=== PATIENT | male | born 1975 | race Caucasian/White ===

== ENCOUNTER 2022-02-28 19:50 | Observation (INO) ==
[2022-02-28 20:36] LABS: Basophils # (auto) 0.03 K/uL (0-0.2); Basophils % (auto) 0.5 %; Eosinophils # (auto) 0.02 K/uL (0-0.5); Eosinophils % (auto) 0.3 %; Hematocrit (blood only) 39.7 % (42-52); Lymphocytes # (auto) 0.71 K/uL (1.2-3.4); Lymphocytes % (auto) 11.6 %; Mean Corpuscular Hgb Conc 35.3 g/dL (32-36); Mean Platelet Volume 10.2 fL (7.4-10.4); Monocytes # (auto) 0.84 K/uL (0.11-0.59); Monocytes % (auto) 13.7 %; Neutrophils # (auto) 4.52 K/uL (1.4-6.5); Neutrophils % (auto) 73.9 %; Platelet Count 192 K/uL (130-400); RDW Coefficient of Variation 13.5 % (11.5-14.5); RDW Standard Deviation 51.8 fL (36.4-46.3); Red Blood Count 3.78 M/uL (4.7-6.1); White Blood Count 6.12 K/uL (4.8-10.8)
[2022-02-28 21:03] LABS: Albumin Globulin Ratio 0.8 (0.9-2); Albumin Level 3.9 gm/dl (3.4-5.0); BUN Creatinine Ratio 6.6 (10-20); Bilirubin,Total 5.6 mg/dl (0.2-1.0); Calcium 9.3 mg/dl (8.5-10.1); Est GFR (African American) 125.9 ml/min; Est GFR (Non-African American) 108.6 ml/min; Total Protein 8.9 gm/dl (6.0-8.3)
[2022-02-28] MEDS ORDERED: ONDANSETRON INJ 2 MG/ML 2 ML VIAL IV STA (21:05)
--- NOTE | 2022-02-28 21:23 | Emergency Department Note ---
Impression & Plan Alcoholic cirrhosis, Abdominal ascites, Alcohol abuse, Hypokalemia, Acute hyponatremia ED Provider Note NAME: IGOR ALBERTO AGE: 47 SEX: M : 1975 ARRIVES VIA: Walk-In INFORMANT: Patient, ED PROVIDER(S): Pepe Claros DO CHIEF COMPLAINT: Abdominal pain HPI: The patient is a 47-year-old male who presented to the emergency department for an evaluation of abdominal pain. The patient has been noticing generalized weakness and abdominal pain. He states that he had some laboratory studies done by his primary care physician. He was told he had very abnormal liver function studies and was sent to the emergency department for further evaluation. The patient has had nausea but no vomiting. He denies having any hematemesis. He denies having any black or bloody bowel moods. He does not routinely use Tylenol. He does have a long history of alcohol abuse. He states his last alcoholic beverage was 2 days ago. He does not have any history of withdrawal. He states otherwise he has been compliant with his usual outpatient medications. He notices no chest pain. He notices no difficulty breathing. ROS: See above HPI for pertinent positives & negatives. A total of 10 systems reviewed and were otherwise negative. PAST MEDICAL HISTORY: See Below PAST SURGICAL HISTORY: See Below FAMILY HISTORY: See Below SOCIAL HISTORY: See Below HOME MEDICATIONS: See Below ALLERGIES: See Below VITALS: See Below PHYSICAL EXAMINATION: GENERAL: The patient is awake and alert. He is somewhat anxious appearing. EYES: The conjunctivae are icteric. The pupils are round and reactive. EARS, NOSE, MOUTH AND THROAT: The nose is without any evidence of any deformity. Mucous membranes are moist. Tongue is midline. NECK: The neck is nontender and supple. RESPIRATORY: Normal respiratory effort is noted there is no evidence of wheezing rhonchi or rales CARDIOVASCULAR: Regular rate and rhythm noted there no murmurs rubs or gallops normal S1 normal S2. GASTROINTESTINAL: The abdomen is soft and mildly distended. There is hepatomegaly to palpation. MUSCULOSKELETAL/EXTREMITIES: There is no evidence of gross deformity full range of motion is noted in the hips and shoulders. SKIN: Pedal edema was noted bilaterally. NEUROLOGIC: Patient is awake alert and oriented x3 strength is symmetric li llar reflexes are 2+ bilaterally MEDICAL DECISION MAKING: The patient is a 47-year-old male who presented to the emergency department for abnormal liver function studies. The patient last had laboratory studies in 2019. He went to his family doctor with complaints of generalized weakness. The patient does have a long history of alcohol abuse. He states that he noticed that he was starting to have edema as well as abdominal distention. Laboratory results today revealed that the patient had abnormal liver function studies especially an elevated bilirubin. I discussed the patient's laboratory and radiographic studies with him. He was advised to come to the emergency department by his primary care physician. Given his findings as well as his CT findings I discussed his case with the on-call [facility] hospitalist. They have agreed to evaluate the patient in the emergency department for further management and disposition. The patient was treated with thiamine. Triage Nursing notes reviewed. Prior medical records reviewed Vital Signs: reviewed and remarkable for elevated blood pressure and t achycardia. Differential diagnosis: Infection, dehydration, metabolic abnormality, hypo/hyperglycemia, electrolyte disturbance, anemia, hypoxia, cardiac sources, intracerebral event, toxicologic, neurologic, as well as other pathologies. ER treatment provided: See below Diagnostics interpreted by me: ECG: none Cardiac Monitoring: An order was placed for continuous cardiac monitoring. The monitor shows a rate of 113 bpm with sinus tachycardia. Laboratory studies: As stated above and show below. Imaging studies: See below Consultation(s): I discussed this case with Dr. Rajput is on-call for the [facility] Hospitalist group. Past Med/Surg History Medical History Acid reflux Anxiety Babesiosis (~09/2020) Gout Family History Mother Anxiety Father Heart disease Hypertension Sister Anxiety Denies family history of Ovarian cancer Prostate cancer Myocardial infarction Breast cancer Colorectal cancer Social History Smoking Status: Never smoker Second Hand Exposure: No; Hx Alcohol Use: Yes Hx Substance Use: No Preferred Language: [place] Communication Ability: Effective Visual Impairment: No Limitations Hearing Ability: Normal Beliefs That Will Affect Care: None Current Living Situation: Alone Current Living Situation Comment: self current occupational status: employed 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 Feels Safe at Home: Yes Childhood Exposure to Second-Hand Smoke: No caffeine: Yes (diet pepsi) during the past year weight has: remained stable Dental Care, Regularly: No Physical Activity Frequency: 1-2 Times per Week Seatbelt Use: always Sunscreen Use: Yes Allergies Allergies Allergy/AdvReac Type Severity Reaction Status Date / Time No Known Allergies Allergy Verified 02/28/22 22:16 Home Meds Home Medications Medication Instructions Recorded Confirmed atovaquone 750 mg/5 mL oral 750 mg PO BID ml 02/27/22 02/28/22 suspension (Mepron) aspirin 325 mg tablet 325 mg PO BID PRN 02/28/22 02/28/22 Results & Data (ED) Vital Signs Vital Signs - 24 hr 02/28/22 20:00 02/28/22 22:25 02/28/22 22:33 Temperature 36.5 C 37.3 C Temperature Source Temporal Artery Scan Oral Pulse Rate 117 H 108 H Pulse Rate [Apical] 113 H Pulse Rhythm Regular Pulse Rhythm [Apical] Regular Respiratory Rate 18 22 22 Respiratory Effort / Characteristics Non-Labored Spontaneous Non-Labored Spontaneous Respiratory Depth Normal Normal Respiratory Pattern Regular Regular Blood Pressure 147/95 H Blood Pressure [Right Arm] 159/113 H Blood Pressure Mean 112 Blood Pressure Mean [Right Arm] 128 Blood Pressure Position [Right Arm] Sitting Pulse Oximetry 99 98 98 Oxygen Delivery Method Room Air Room Air Sepsis Recent Fever Within 48 Hours No Sepsis New/Unexplained Change in Mental Status No Sepsis Action Taken by Nursing No Action Required Home Medications Current Medication List: was personally reviewed by me Laboratory Data Attestation: I reviewed the patient's lab results. Result diagrams: 02/28/22 20:15 02/28/22 20:15 Lab Results 02/28/22 02/28/22 02/28/22 Range/Units 20:15 20:15 20:15 WBC 6.12 (4.8-10.8) K/uL RBC 3.78 L (4.7-6.1) M/uL Hgb 14.0 (14.0-18.0) g/dL Hct 39.7 L (42-52) % MCV 105.0 H (80-100) fL MCH 37.0 H (25-34) pg MCHC 35.3 (32-36) g/dL RDW Std Deviation 51.8 H (36.4-46.3) fL RDW Coeff of Coby 13.5 (11.5-14.5) % Plt Count 192 (130-400) K/uL MPV 10.2 (7.4-10.4) fL Immature Gran % (Auto) 0.0 % Neut % (Auto) 73.9 % Lymph % (Auto) 11.6 % Emmet % (Auto) 13.7 % Eos % (Auto) 0.3 % Baso % (Auto) 0.5 % Neut # (Auto) 4.52 (1.4-6.5) K/uL Lymph # (Auto) 0.71 L (1.2-3.4) K/uL Emmet # (Auto) 0.84 H (0.11-0.59) K/uL Eos # (Auto) 0.02 (0-0.5) K/uL Baso # (Auto) 0.03 (0-0.2) K/uL Immature Gran # (Auto) 0.00 (0.00-0.02) K/uL PT (9.0-12.0) Seconds INR (0.9-1.1) APTT (21.0-31.0) Seconds PTT Ratio Sodium 128 L (136-145) mmol/L Potassium 3.0 L (3.5-5.1) mmol/L Chloride 90 L (98-107) mmol/L Carbon Dioxide 24 (21-32) mmol/L Anion Gap 14 H (3-11) BUN 5 L (6-23) mg/dl Creatinine 0.76 (0.6-1.4) mg/dl Est Cr Clr Drug Dosing 128.0 ml/min Est GFR ( Amer) 125.9 ml/min Est GFR (Non-Af Amer) 108.6 ml/min BUN/Creatinine Ratio 6.6 L (10-20) Glucose 111 H (70-99(Fasting)) mg/dl Calcium 9.3 (8.5-10.1) mg/dl Total Bilirubin 5.6 H (0.2-1.0) mg/dl Direct Bilirubin 2.4 H (0-0.2) mg/dl AST 152 H (13-39) U/L ALT 48 (7-52) U/L Alkaline Phosphatase 163 H (34-104) U/L Total Protein 8.9 H (6.0-8.3) gm/dl Albumin 3.9 (3.4-5.0) gm/dl Globulin 5.0 H (2.5-4.0) gm/dl Albumin/Globulin Ratio 0.8 L (0.9-2) Lipase 24 (11-82) U/L Urine Color Urine Appearance (Clear) Urine pH (4.5-7.5) Ur Specific Martinez (1.000-1.030) Urine Protein (Negative) Urine Glucose (UA) (Negative) Urine Ketones (Negative) Urine Blood (Negative) Urine Nitrite (Negative) Urine Bilirubin (Negative) Urine Urobilinogen (Negative) Ur Leukocyte Esterase (Negative) SARS-CoV-2, RNA, NAAT (NEGATIVE) 02/28/22 02/28/22 02/28/22 Range/Units Unknown Unknown Unknown WBC (4.8-10.8) K/uL RBC (4.7-6.1) M/uL Hgb (14.0-18.0) g/dL Hct (42-52) % MCV (80-100) fL MCH (25-34) pg MCHC (32-36) g/dL RDW Std Deviation (36.4-46.3) fL RDW Coeff of Coby (11.5-14.5) % Plt Count (130-400) K/uL MPV (7.4-10.4) fL Immature Gran % (Auto) % Neut % (Auto) % Lymph % (Auto) % Emmet % (Auto) % Eos % (Auto) % Baso % (Auto) % Neut # (Auto) (1.4-6.5) K/uL Lymph # (Auto) (1.2-3.4) K/uL Emmet # (Auto) (0.11-0.59) K/uL Eos # (Auto) (0-0.5) K/uL Baso # (Auto) (0-0.2) K/uL Immature Gran # (Auto) (0.00-0.02) K/uL PT 14.5 H (9.0-12.0) Seconds INR 1.4 H (0.9-1.1) APTT 25.5 (21.0-31.0) Seconds PTT Ratio 0.9 Sodium (136-145) mmol/L Potassium (3.5-5.1) mmol/L Chloride (98-107) mmol/L Carbon Dioxide (21-32) mmol/L Anion Gap (3-11) BUN (6-23) mg/dl Creatinine (0.6-1.4) mg/dl Est Cr Clr Drug Dosing ml/min Est GFR ( Amer) ml/min Est GFR (Non-Af Amer) ml/min BUN/Creatinine Ratio (10-20) Glucose (70-99(Fasting)) mg/dl Calcium (8.5-10.1) mg/dl Total Bilirubin (0.2-1.0) mg/dl Direct Bilirubin (0-0.2) mg/dl AST (13-39) U/L ALT (7-52) U/L Alkaline Phosphatase (34-104) U/L Total Protein (6.0-8.3) gm/dl Albumin (3.4-5.0) gm/dl Globulin (2.5-4.0) gm/dl Albumin/Globulin Ratio (0.9-2) Lipase (11-82) U/L Urine Color Yellow Urine Appearance Clear (Clear) Urine pH 7.5 (4.5-7.5) Ur Specific Martinez 1.011 (1.000-1.030) Urine Protein Negative (Negative) Urine Glucose (UA) Negative (Negative) Urine Ketones Negative (Negative) Urine Blood Negative (Negative) Urine Nitrite Negative (Negative) Urine Bilirubin Negative (Negative) Urine Urobilinogen Negative (Negative) Ur Leukocyte Esterase Negative (Negative) SARS-CoV-2, RNA, NAAT NEGATIVE (NEGATIVE) Administered Medications Discontinued Medications Thiamine HCl 200 mg/ Sodium (Chloride) 52 mls @ 208 mls/hr IV NOW STA Stop: 02/28/22 21:42 Last Admin: 02/28/22 22:41 Dose: 208 mls/hr Documented by: [id number] Ioversol (Optiray 320 100ml) 91 ml IV ONCE ONE Stop: 02/28/22 21:38 Last Admin: 02/28/22 21:41 Dose: 91 ml Documented by: [id number] Ondansetron HCl (Ondansetron Inj 2 Mg/Ml 2 Ml Vial) 4 mg IV NOW STA Stop: 02/28/22 21:06 Last Admin: 02/28/22 21:16 Dose: 4 mg Documented by: [id number] Imaging Data Radiologist's Impression: Patient: IGOR ALBERTO (Male) : 75 Status: ER Date: 02/28/22 21:45 Room #: History: sent by PCP for abnl LFTs Slices: 725 Priors: Tech: Eddy Parks @ [phone] Exams: CT ABDOMEN & PELVIS With Contrast Contrast: IV Amt: 91ML OPTIRAY 320 Accession Numbers: [id number] Referring Physician: REFERRED SELF Preliminary Findings Only See Final Report For Complete Findings CT ABDOMEN & PELVIS With Contrast: Enlarged heterogeneous liver with nodular liver contour is compatible with cirrhosis. There is somewhat focal hypertrophy of the caudate for which an underlying lesion cannot be excluded. Consider multiphase liver protocol CT to further evaluate. Evidence of portal venous hypertension including recanalization of the umbilical vein, splenomegaly with splenic varices and small volume ascites. Gallbladder distention without radiodense gallstones visualized. Mildly prominent fluid-filled loops of small bowel throughout the abdomen are nonspecific but can be seen in the setting of enteritis. Transitional lumbosacral anatomy. Radiologist: Nicki Basurto M.D. Study ready at 21:49 and initial results transmitted at 22:36 Discharge Plan Visit Data Chief Complaint: Referred by Doctor Stated Complaint: DR WOODSON REF'D FOR CT ED Provider: Pepe Claros Discharge Problem: Alcoholic cirrhosis, Abdominal ascites, Alcohol abuse, Hypokalemia, Acute hyponatremia Patient Disposition: Being Evaluated by Hospitalist Forms Stand Alone Forms: My [employer] Prescriptions Prescriptions: No Action atovaquone [Mepron] 750 mg/5 mL suspension 750 mg PO BID RF: 0 aspirin 325 mg Tablet 325 mg PO BID PRN (Reason: Headaches /pain) RF: 0 Referrals Referrals: Mohsen Laboy CRNP [Primary Care Provider] -
[2022-02-28] MEDS ORDERED: OPTIRAY 320 100ml IV ONE (21:37)
[2022-02-28] MEDS ORDERED: THIAMINE HCL 200 MG in SODIUM CHLORIDE 0.9% 50 ML IV STA (21:41)
--- NOTE | 2022-02-28 21:46 | History & Physical Report ---
Date of Service February 28, 2022 History of Present Illness Primary Care Provider: ARIAS Villar Allergies Allergy/AdvReac Type Severity Reaction Status Date / Time No Known Allergies Allergy Verified 02/27/22 12:59 Home Medications Medication Instructions Recorded Confirmed Type atovaquone 750 mg/5 mL oral 750 mg PO BID ml 02/27/22 History suspension (Mepron) Past Med/Surg History Medical History Acid reflux Anxiety Babesiosis (~09/2020) Gout Family History Mother Anxiety Father Heart disease Hypertension Sister Anxiety Denies family history of Ovarian cancer Prostate cancer Myocardial infarction Breast cancer Colorectal cancer Social History Smoking Status: Never smoker Second Hand Exposure: No; Hx Alcohol Use: Yes Hx Substance Use: No Preferred Language: [place] Communication Ability: Effective Visual Impairment: No Limitations Hearing Ability: Normal Beliefs That Will Affect Care: None Current Living Situation: Alone Current Living Situation Comment: self current occupational status: employed 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 Feels Safe at Home: Yes Childhood Exposure to Second-Hand Smoke: No caffeine: Yes (diet pepsi) during the past year weight has: remained stable Dental Care, Regularly: No Physical Activity Frequency: 1-2 Times per Week Seatbelt Use: always Sunscreen Use: Yes Review of Systems Review of Systems: All systems reviewed & are unremarkable except as noted in HPI & below Constitutional: Denies fever, chills, weight change Eyes: Denies blurry vision, vision changes ENT: Denies sore throat, sinus pain Cardiovascular: Denies chest pain, palpitations Respiratory: Denies shortness of breath Gastrointestinal: Denies abdominal pain, nausea, vomiting, constipation, diarrhea Genitourinary: Denies urinary symptoms including dysuria Musculoskeletal: Denies weakness, muscle aches/pain, joint aches/pain Neurological: Denies headache, numbness, tingling, focal weakness Physical Exam Physical Exam: General: Grossly A&O. NAD. Cooperative. HEENT: Atraumatic, normocephalic. EOMI Pulm: CTAB. -wheezes, -rales, -rhonchi. No respiratory distress. Cardiac: RRR, -mrg. Radial pulses intact and symmetrical. Abdominal: Nontender, nondistended, soft. Results & Data Results & Data ([facility]) Vital Signs (Past 12 Hours) Vital Signs Temp Pulse Resp BP Pulse Ox 02/28/22 20:00 36.5 C 117 H 18 147/95 H 99 Laboratory Results 02/28/22 20:15 02/28/22 20:15 Cardiac Enzymes 02/28/22 Range/Units 20:15 AST 152 H (13-39) U/L CBC 02/28/22 Range/Units 20:15 WBC 6.12 (4.8-10.8) K/uL RBC 3.78 L (4.7-6.1) M/uL Hgb 14.0 (14.0-18.0) g/dL Hct 39.7 L (42-52) % Plt Count 192 (130-400) K/uL Neut # (Auto) 4.52 (1.4-6.5) K/uL Lymph # (Auto) 0.71 L (1.2-3.4) K/uL [place] # (Auto) 0.84 H (0.11-0.59) K/uL Eos # (Auto) 0.02 (0-0.5) K/uL Baso # (Auto) 0.03 (0-0.2) K/uL Comprehensive Metabolic Panel 02/28/22 02/28/22 Range/Units 20:15 20:15 Sodium 128 L (136-145) mmol/L Potassium 3.0 L (3.5-5.1) mmol/L Chloride 90 L (98-107) mmol/L Carbon Dioxide 24 (21-32) mmol/L BUN 5 L (6-23) mg/dl Creatinine 0.76 (0.6-1.4) mg/dl Glucose 111 H (70-99(Fasting)) mg/dl Calcium 9.3 (8.5-10.1) mg/dl Direct Bilirubin 2.4 H (0-0.2) mg/dl AST 152 H (13-39) U/L ALT 48 (7-52) U/L Alkaline Phosphatase 163 H (34-104) U/L Total Protein 8.9 H (6.0-8.3) gm/dl Albumin 3.9 (3.4-5.0) gm/dl Intake and Output 02/28/22 02/28/22 02/28/22 06:59 14:59 22:59 Other: Weight 82.4 kg Weight Measurement Method Chair Scale Patient Weight 03/01/22 06:59 Weight 82.4 kg Resident Activity Tracking Resident Involvement: Resident Care Provided Care Provided: Adult Hospital Medicine
[2022-02-28 21:48] LABS: INR 1.4 (0.9-1.1); Partial Thromboplastin Ratio 0.9; Partial Thromboplastin Time 25.5 Seconds (21.0-31.0); Prothrombin Time 14.5 Seconds (9.0-12.0)
[2022-02-28 22:37] LABS: Appearance Urine Clear (Clear); Bilirubin Urine Negative (Negative); Blood Urine Negative (Negative); Color Urine Yellow; Glucose Urine UA Negative (Negative); Ketones Urine Negative (Negative); Leukocyte Esterase Urine Negative (Negative); Nitrite Urine Negative (Negative); Protein Urine Negative (Negative); Specific Gravity Urine 1.011 (1.000-1.030); Urobilinogen Urine Negative (Negative); pH Urine 7.5 (4.5-7.5)
[2022-02-28] MEDS ORDERED: POTASSIUM CHLORIDE CRTAB 20 MEQ TABCR PO STA (22:47)
--- NOTE | 2022-02-28 22:54 | History & Physical Report ---
Date of Service February 28, 2022 Assessment & Plan (1) Alcoholic cirrhosis: Plan: Alcoholic cirrhosis/abdominal ascites/hepatosplenomegaly/splenic varices/portal venous hypertension/coagulopathy Meld score 17 Meld sodium score 24 Hepatitis A, B and C laboratories were ordered as an outpatient, and are still pending Consult gastroenterology Discussed with patient the importance of alcohol cessation INR 1.4, will give vitamin K 10 mg IV and reassess Consult gastroenterology Radiology suggest consideration of multiphase liver protocol CT to further assess (2) Abdominal ascites: Plan: See above (3) Hypokalemia: Plan: Hypokalemia/hyponatremia- NSS + KCl 20 mEq at 80 mils per hour x1 L Recheck laboratories in a.m. (4) Acute hyponatremia: Plan: See above (5) Hepatosplenomegaly: Plan: See above (6) Alcohol abuse: Plan: Placed on AWSS protocol with IV Ativan Given thiamine 20 mg IV and Klor-Con 20 mEq p.o. in the ED Thiamine 100 mg p.o. every morning Folic acid 1 mg p.o. every morning (7) Jaundice of recent onset: Plan: See above (8) Fatigue: Plan: Fatigue and generalized body aches- Likely secondary to ongoing liver disease (9) Generalized body aches: Plan: See above History of Present Illness Chief Complaint: The patient initially presented to his PCP due to generalized weakness and abdominal pain, had laboratories performed, which he was told he had very abnormal liver function tests, and was told to come to the emergency department for further evaluation Primary Care Provider: ARIAS Villar The patient is a 47-year-old male with a past medical history including abnormal liver enzymes, generalized body aches, fatigue, elevated blood pressure reading without diagnosis of hypertension, lactose intolerance, snoring, elevated liver enzymes, babesiosis, lumbosacral back pain and alcohol abuse. He presents emergency department as noted above. Significant laboratories in the ED: Sodium 128, potassium 3.0, glucose 111, total bilirubin 5.6, direct bilirubin 2.4, AST 152 CT scan of abdomen and pelvis with contrast: Enlarged heterogeneous liver with nodular liver contour compatible with cirrhosis. There is somewhat focal hypertrophy of the caudate which an underlying lesion cannot be excluded. Consider multiphase liver protocol CT for to further evaluate Allergies Allergy/AdvReac Type Severity Reaction Status Date / Time No Known Allergies Allergy Verified 02/28/22 22:16 Home Medications Medication Instructions Recorded Confirmed Type atovaquone 750 mg/5 mL oral 750 mg PO BID ml 02/27/22 02/28/22 History suspension (Mepron) aspirin 325 mg tablet 325 mg PO BID PRN 02/28/22 02/28/22 History Past Med/Surg History Medical History Acid reflux Anxiety Babesiosis (~09/2020) Gout Family History Mother Anxiety Father Heart disease Hypertension Sister Anxiety Denies family history of Ovarian cancer Prostate cancer Myocardial infarction Breast cancer Colorectal cancer Social History Smoking Status: Never smoker Second Hand Exposure: No; Hx Alcohol Use: Yes Alcohol type: beer Hx Substance Use: No Preferred Language: Yakut Communication Ability: Effective Visual Impairment: No Limitations Hearing Ability: Normal Caustic Liquor Maker Required: No Beliefs That Will Affect Care: None Current Living Situation: Alone Current Living Situation Comment: self current occupational status: employed 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 Other Information That Helps Us Care for You: No Feels Safe at Home: Yes Safety Concerns: Feels Safe At This Time Childhood Exposure to Second-Hand Smoke: No caffeine: Yes (diet pepsi) during the past year weight has: remained stable Dental Care, Regularly: No Physical Activity Frequency: 1-2 Times per Week Seatbelt Use: always Sunscreen Use: Yes Assistive Devices: None Review of Systems Review of Systems: The patient denies chest pain, palpitations, shortness of breath, dyspnea on exertion, cough, lower extremity swelling, sore throat, fevers, chills, sweats, vomiting, diarrhea , constipation, blood in urine or stool, dysuria, urinary frequency or urgency, lightheadedness, dizziness, headache, memory loss, loss of consciousness, rash, abnormal bruising or bleeding, imbalance, focal weakness, numbness or tingling in arms or legs, back or neck pa in, or night sweats. The review of systems is otherwise negative other than for that already noted above, and at least 10 systems have been reviewed. Physical Exam Physical Exam: The patient is awake, alert and oriented 3, well developed and well nourished, normocephalic and atraumatic, lying in bed and in no acute distress. HEENT--PERRL, EOMI, mucous membranes and oropharynx dry. Neck--supple. No JVD. No bruits. Thyroid normal, trachea midline, no adenopathy. Heart--normal S1 and S2. No murmurs, rubs or gallops. Lungs--clear bilaterally, no respiratory distress, no accessory muscle use. Abdomen--normal bowel sounds and soft. Nontender. Distended Extremities--no cyanosis or clubbing. 1+ bilateral pretibial pitting edema. Dermatologic--normal skin turgor, normal color, no abnormal lymph nodes, no rash. Neurologic--cranial nerves II through XII grossly intact. Rheumatologic--normal range of motion. Psychiatric--normal affect. Results & Data Results & Data ([facility]) Vital Signs (Past 12 Hours) Vital Signs Temp Pulse Pulse Resp BP BP Pulse Ox 02/28/22 22:33 37.3 C 113 H 22 159/113 H 98 02/28/22 22:25 108 H 22 98 02/28/22 20:00 36.5 C 117 H 18 147/95 H 99 Laboratory Results Laboratory Results WBC 6.12 K/uL (4.8-10.8) 02/28/22 20:15 RBC 3.78 M/uL (4.7-6.1) L 02/28/22 20:15 Hgb 14.0 g/dL (14.0-18.0) 02/28/22 20:15 Hct 39.7 % (42-52) L 02/28/22 20:15 MCV 105.0 fL (80-100) H 02/28/22 20:15 MCH 37.0 pg (25-34) H 02/28/22 20:15 MCHC 35.3 g/dL (32-36) 02/28/22 20:15 RDW Std Deviation 51.8 fL (36.4-46.3) H 02/28/22 20:15 RDW Coeff of Coby 13.5 % (11.5-14.5) 02/28/22 20:15 Plt Count 192 K/uL (130-400) 02/28/22 20:15 MPV 10.2 fL (7.4-10.4) 02/28/22 20:15 Immature Gran % (Auto) 0.0 % 02/28/22 20:15 Neut % (Auto) 73.9 % 02/28/22 20:15 Lymph % (Auto) 11.6 % 02/28/22 20:15 [place] % (Auto) 13.7 % 02/28/22 20:15 Eos % (Auto) 0.3 % 02/28/22 20:15 Baso % (Auto) 0.5 % 02/28/22 20:15 Neut # (Auto) 4.52 K/uL (1.4-6.5) 02/28/22 20:15 Lymph # (Auto) 0.71 K/uL (1.2-3.4) L 02/28/22 20:15 [place] # (Auto) 0.84 K/uL (0.11-0.59) H 02/28/22 20:15 Eos # (Auto) 0.02 K/uL (0-0.5) 02/28/22 20:15 Baso # (Auto) 0.03 K/uL (0-0.2) 02/28/22 20:15 Immature Gran # (Auto) 0.00 K/uL (0.00-0.02) 02/28/22 20:15 PT 14.5 Seconds (9.0-12.0) H 02/28/22 Unknown INR 1.4 (0.9-1.1) H 02/28/22 Unknown APTT 25.5 Seconds (21.0-31.0) 02/28/22 Unknown PTT Ratio 0.9 02/28/22 Unknown Sodium 128 mmol/L (136-145) L 02/28/22 20:15 Potassium 3.0 mmol/L (3.5-5.1) L 02/28/22 20:15 Chloride 90 mmol/L (98-107) L 02/28/22 20:15 Carbon Dioxide 24 mmol/L (21-32) 02/28/22 20:15 Anion Gap 14 (3-11) H 02/28/22 20:15 BUN 5 mg/dl (6-23) L 02/28/22 20:15 Creatinine 0.76 mg/dl (0.6-1.4) 02/28/22 20:15 Est Cr Clr Drug Dosing 128.0 ml/min 02/28/22 20:15 Est GFR ( Amer) 125.9 ml/min 02/28/22 20:15 Est GFR (Non-Af Amer) 108.6 ml/min 02/28/22 20:15 BUN/Creatinine Ratio 6.6 (10-20) L 02/28/22 20:15 Glucose 111 mg/dl (70-99(Fasting)) H 02/28/22 20:15 Calcium 9.3 mg/dl (8.5-10.1) 02/28/22 20:15 Total Bilirubin 5.6 mg/dl (0.2-1.0) H 02/28/22 20:15 Direct Bilirubin 2.4 mg/dl (0-0.2) H 02/28/22 20:15 AST 152 U/L (13-39) H 02/28/22 20:15 ALT 48 U/L (7-52) 02/28/22 20:15 Alkaline Phosphatase 163 U/L (34-104) H 02/28/22 20:15 Total Protein 8.9 gm/dl (6.0-8.3) H 02/28/22 20:15 Albumin 3.9 gm/dl (3.4-5.0) 02/28/22 20:15 Globulin 5.0 gm/dl (2.5-4.0) H 02/28/22 20:15 Albumin/Globulin Ratio 0.8 (0.9-2) L 02/28/22 20:15 Lipase 24 U/L (11-82) 02/28/22 20:15 Urine Color Yellow 02/28/22 Unknown Urine Appearance Clear (Clear) 02/28/22 Unknown Urine pH 7.5 (4.5-7.5) 02/28/22 Unknown Ur Specific [place] 1.011 (1.000-1.030) 02/28/22 Unknown Urine Protein Negative (Negative) 02/28/22 Unknown Urine Glucose (UA) Negative (Negative) 02/28/22 Unknown Urine Ketones Negative (Negative) 02/28/22 Unknown Urine Blood Negative (Negative) 02/28/22 Unknown Urine Nitrite Negative (Negative) 02/28/22 Unknown Urine Bilirubin Negative (Negative) 02/28/22 Unknown Urine Urobilinogen Negative (Negative) 02/28/22 Unknown Ur Leukocyte Esterase Negative (Negative) 02/28/22 Unknown SARS-CoV-2, RNA, NAAT NEGATIVE (NEGATIVE) 02/28/22 Unknown Diagnostic Findings [facility] Patient: IGOR ALBERTO (Male) : 75 Status: ER Date: 02/28/22 21:45 Room #: History: sent by PCP for abnl LFTs Slices: [phone] Priors: Tech: Eddy Parks @ [phone] Exams: CT ABDOMEN & PELVIS With Contrast Contrast: IV Amt: 91ML OPTIRAY 320 Accession Numbers: [id number] Referring Physician: REFERRED SELF Preliminary Findings Only See Final Report For Complete Findings CT ABDOMEN & PELVIS With Contrast: Enlarged heterogeneous liver with nodular liver contour is compatible with cirrhosis. There is somewhat focal hypertrophy of the caudate for which an underlying lesion cannot be excluded. Consider multiphase liver protocol CT to further evaluate. Evidence of portal venous hypertension including recanalization of the umbilical vein, splenomegaly with splenic varices and small volume ascites. Gallbladder distention without radiodense gallstones visualized. Mildly prominent fluid-filled loops of small bowel throughout the abdomen are nonspecific but can be seen in the setting of enteritis. Transitional lumbosacral anatomy. Radiologist: Nicki Basurto M.D. Study ready at 21:49 and initial results transmitted at 22:36 *This report constitutes a preliminary interpretation only. Non-acute findings felt to be unrelated to the clinical presentation may not be discussed in this report. The study will be interpreted and a final report will be generated by the local Radiologist the following shift. To reach the [facility]ology department call [phone]. If a discrepancy is found between the preliminary and final interpretations of this study, please notify us via our Client Portal at [email or web address], under QA Exams. You can also fax this report with a description of the discrepancy, or include the final report, to our daytime fax number [phone]. If faxing, please indicate the severity of discrepancy using one of the following categories: [ ] 1 - Agree/Informational [ ] 2 - Unlikely to Affect Management [ ] 3 - Possible Eventual Change of Management [ ] 4 - Probable Immediate Change of Management For all other patient related information, please fax us at [phone]. [id number] Code Status & VTE Plan Code Status Full code VTE Prophylaxis Plan VTE Prophylaxis will be ordered: Yes PG Care Time/CCT Total # of Minutes Spent Total Time Spent with Patient: Total time spent is greater than 50% in coordination of care (as documented) at patient's floor/unit and/or counseling patient: Coding Level of Care Code 03661 Initial Inpt Care Lvl 3 Diagnoses Alcoholic cirrhosis K70.31 Ascites presence: with ascites Abdominal ascites K70.31 Ascites type: due to alcoholic cirrhosis Hypokalemia E87.6 Acute hyponatremia E87.1 Hepatosplenomegaly R16.2 Alcohol abuse F10.10 Jaundice of recent onset R17 Fatigue R53.83 Generalized body aches R52 (1) Alcoholic cirrhosis Ascites presence: with ascites Qualified Code(s): K70.31 - Alcoholic cirrhosis of liver with ascites (2) Abdominal ascites Ascites type: due to alcoholic cirrhosis Qualified Code(s): K70.31 - Alcoholic cirrhosis of liver with ascites
[2022-02-28] MEDS ORDERED: LORazepam 2 MG/1 ML VIAL IV PRN ×3 (23:15)
[2022-02-28] MEDS ORDERED: ATIVAN IV ALCOHOL WITHDRAWL IV PRN (23:15)
[2022-02-28] MEDS ORDERED: ONDANSETRON INJ 2 MG/ML 2 ML VIAL IV PRN (23:52)
[2022-02-28] MEDS ORDERED: NSS + 20MEQ KCL 20 MEQ/1,000 ML BAG IV SCH (23:52)
[2022-03-01 07:29] LABS: Basophils # (auto) 0.03 K/uL (0-0.2); Basophils % (auto) 0.6 %; Eosinophils # (auto) 0.03 K/uL (0-0.5); Eosinophils % (auto) 0.6 %; Hemoglobin 12.6 g/dL (14.0-18.0); Immature Granulocytes # (auto) 0.01 K/uL (0.00-0.02); Immature Granulocytes % (auto) 0.2 %; Lymphocytes # (auto) 0.69 K/uL (1.2-3.4); Mean Corpuscular Hemoglobin 36.7 pg (25-34); Mean Platelet Volume 10.1 fL (7.4-10.4); Monocytes # (auto) 0.78 K/uL (0.11-0.59); Monocytes % (auto) 15.9 %; Neutrophils # (auto) 3.38 K/uL (1.4-6.5); Neutrophils % (auto) 68.7 %; Platelet Count 140 K/uL (130-400); RDW Coefficient of Variation 13.7 % (11.5-14.5); RDW Standard Deviation 52.1 fL (36.4-46.3); Red Blood Count 3.43 M/uL (4.7-6.1); White Blood Count 4.92 K/uL (4.8-10.8)
[2022-03-01 07:40] LABS: INR 1.4 (0.9-1.1); Partial Thromboplastin Time 27.7 Seconds (21.0-31.0); Prothrombin Time 14.6 Seconds (9.0-12.0)
[2022-03-01 07:46] LABS: Albumin Globulin Ratio 0.8 (0.9-2); Albumin Level 3.4 gm/dl (3.4-5.0); BUN Creatinine Ratio 6.1 (10-20); Bilirubin,Total 5.1 mg/dl (0.2-1.0); Calcium 8.9 mg/dl (8.5-10.1); Creatinine Clr Calc Pharmacy 165.9 ml/min; Est GFR (African American) 133.4 ml/min; Est GFR (Non-African American) 115.1 ml/min; Globulin 4.5 gm/dl (2.5-4.0); Magnesium 1.5 mg/dl (1.7-2.4); Potassium 3.5 mmol/L (3.5-5.1); Total Protein 7.9 gm/dl (6.0-8.3)
[2022-03-01] MEDS: THIAMINE HCL 100 MG TAB PO SCH (09:09)
[2022-03-01] MEDS: FOLIC ACID 1 MG TAB PO SCH (09:09)
--- NOTE | 2022-03-01 10:02 | Gastrointestinal Consultation ---
Date of Consultation March 01, 2022 Assessment & Plan (1) Elevated liver enzymes: Await formal read of CT scan to determine if patient truly has cirrhosis, check for presence of ascites & portal hypertension, and rule out other issues that could be contributing to his elevated LFTs. Await results of infectious hepatitis studies obtained as outpatient. Continue to follow bilirubin, INR, & other LFTs. Labs could be patient financial representative of an alcoholic hepatitis (DF 17--no need for steroids), but will await testing to exclude other possibilities. Supervising Physician Co-Signing Physician Notes I personally evaluated the patient and agree with the findings as documented by Natividad Fermin, ANUSHA Exam: Constitutional: WD/WN, vitals as above General: EOM intact bilaterally Neck: normal visual inspection Respiratory: normal respiratory effort, lungs clear to auscultation Cardiovascular: RRR, no murmur, no edema Gastrointestinal: abdomennormal to inspection, nondistended, soft, nontender, no hepatosplenomegaly Musculoskeletal: no cyanosis, head normal to inspection Skin: no rashes, warm and dry Neurologic: moves all extremities Psychiatric: A and O x3, euthymic affectm no asterixis obtain diagnostic/therapeutic paracentesis if enough ascites is present. avoid alcohol/NSAIDS, liver toxins History of Present Illness Reason for Consultation: "Cirrhosis" Attending Physician: Raphael Rajput MD History of Present Illness Patient is a 47 yo male with PMH of alcohol abuse, babesiosis, lactose intolerance, and Vitamin D Deficiency who presented to [facility] at the request of his PCP after findings of abnormal LFTs were noted in the outpatient setting. Patient reports a history of approximately 5-6 alcoholic drinks daily. He reports he has not noticed jaundice or scleral icterus but his sister felt she noticed these things and made him an outpatient appointment with his PCP. Labs indicated an elevated bilirubin and he was sent to the hospital. Currently Total Bilirubin is 5.1. Direct bilirubin is 2.4. AST 132. ALT 42. Alk phos 137.INR 1.4. Formal radiology read from CT of the abdomen/pelvis is currently pending, however unofficial reads have been noted throughout the chart and have raised concern for possible cirrhosis. Patient had an abdominal US in 2019 (also the last time he had lab studies) and it showed hepatic steatosis. Assuming reads for cirrhosis are accurate, calculated MELD score would be 18. Given suspicion for alcoholic hepatitis, a discriminant function calculates to 17 with no indication for steroids. Patient denies any current physical symptoms. He is anxious to get out of the hospital explaining to me that it is Easter weekend and he's not a "good patient." Infectious hepatitis studies are pending at the present time. Denies IVDA, blood transfusions, recent antibiotic use, or supplement use. He denies family history of GI malignancy and is unsure about family history of liver issues. He offers no further complaints at present. Allergies Allergy/AdvReac Type Severity Reaction Status Date / Time No Known Allergies Allergy Verified 02/28/22 22:16 Home Medications Medication Instructions Recorded Confirmed Type atovaquone 750 mg/5 mL oral 750 mg PO BID ml 02/27/22 02/28/22 History suspension (Mepron) aspirin 325 mg tablet 325 mg PO BID PRN 02/28/22 02/28/22 History Patient History Medical History Acid reflux Anxiety Babesiosis (~09/2020) Gout Family History Mother Anxiety Father Heart disease Hypertension Sister Anxiety Denies family history of Ovarian cancer Prostate cancer Myocardial infarction Breast cancer Colorectal cancer Social History Smoking Status: Never smoker Second Hand Exposure: No; Hx Alcohol Use: Yes Alcohol type: beer Hx Substance Use: No Preferred Language: Irish Communication Ability: Effective Visual Impairment: No Limitations Hearing Ability: Normal Diver Assistant Required: No Beliefs That Will Affect Care: None Current Living Situation: Alone Current Living Situation Comment: self current occupational status: employed 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 Other Information That Helps Us Care for You: No Feels Safe at Home: No Is there a partner from a previous relationship who is making you feel unsafe now?: No Any Concerns about Your Family Situation: No Would You Like to Speak to Someone About Your Situation: No Safety Concerns: Feels Safe At This Time Childhood Exposure to Second-Hand Smoke: No caffeine: Yes (diet pepsi) during the past year weight has: remained stable Dental Care, Regularly: No Physical Activity Frequency: 1-2 Times per Week Seatbelt Use: always Sunscreen Use: Yes Assistive Devices: None Review of Systems Constitutional: + weight loss; no fever and no chills Respiratory: no cough and no dyspnea Cardiovascular: no chest pain Gastrointestinal: no abdominal pain Musculoskeletal: no problem reported Psychiatric: + substance abuse Physical Exam Constitutional: well developed Respiratory: normal respiratory effort Cardiovascular: Rate/Rhythm: regular rate Gastrointestinal (Abdomen): Inspection/Auscultation: abdomen normal to inspection Musculoskeletal: Head/Neck/Chest: normocephalic Psychiatric: Orientation: alert and oriented x 3 Results & Data ([facility]) Vital Signs (Past 12 Hours) Vital Signs Temp Pulse Pulse Pulse Resp BP Pulse Ox 03/01/22 09:23 92 H 03/01/22 07:31 37.1 C 91 H 18 129/89 96 03/01/22 03:30 37.4 C 97 H 18 126/84 96 02/28/22 23:55 95 H 02/28/22 23:52 37.0 C 102 H 18 166/104 H 98 02/28/22 23:40 37.0 C 102 H 18 166/104 H 98 02/28/22 22:33 37.3 C 113 H 22 159/113 H 98 02/28/22 22:25 108 H 22 98 Pulse Ox 03/01/22 09:23 03/01/22 07:31 03/01/22 03:30 02/28/22 23:55 02/28/22 23:52 98 02/28/22 23:40 02/28/22 22:33 02/28/22 22:25 PG Care Time/CCT Total # of Minutes Spent Total Time Spent with Patient: Total time spent is greater than 50% in coordination of care (as documented) at patient's floor/unit and/or counseling patient: Coding Level of Care Code 20676 Inpt Consult Level 4 Diagnoses Elevated liver enzymes R74.8
[2022-03-01] MEDS: MAGNESIUM OXIDE 400 MG TAB PO SCH ×2 (10:14→20:42)
--- NOTE | 2022-03-01 10:35 | CT Scan Report ---
ABDOMEN AND PELVIS CT WITH IV CONTRAST CT DOSE: 770.43 mGy.cm HISTORY: sent by PCP for abnormal LFTs. TECHNIQUE: Multiaxial CT images of the abdomen and pelvis were performed following the use of intrave nous contrast. A dose lowering technique was utilized adhering to the principles of ALARA. COMPARISON STUDY: Abdominal ultrasound 07/01/2019. FINDINGS: The lung bases are clear. No pneumoperitoneum. No pneumatosis. No fractures within the visu alized osseous structures. Diffuse heterogeneous enhancement seen throughout the liver. Some of this is likely related to scattered areas of geographic steatosis. Underlying hepatic lesions are consider ed less likely but not entirely excluded. Subtle nodular contour to the liver consistent with cirrhos is. The main portal vein is patent. The spleen is enlarged measuring 14 centers in length. The adrena l glands, pancreas, and kidneys are unremarkable. No hydronephrosis. No retroperitoneal lymphadenopat hy. Normal caliber abdominal aorta. Multiple small abdominal and perirectal varicosities likely due t o the patient's hepatic abnormality/cirrhosis. The bladder is unremarkable. Small amount of ascites i s present. Mild rectal wall thickening is noted. Questionable thickening of the proximal colon is lik raza due to portal colopathy. Questionable thickening within a few the small bowel loops within the le ft side the abdomen is likely due to the patient's diffuse edematous state. A mild enteritis could al so a similar appearance in the appropriate clinical setting. IMPRESSION: 1. Cirrhotic liver with evidence for portal hypertension as described above. 2. Diffusely heterogeneous enhancing liver. This is likely secondary to scattered areas of geographic steatosis and cirrhosis. An acute hepatitis on the background of chronic cirrhosis would be consider ed in the differential diagnosis. Underlying hepatic lesions are considered less likely but not entir raza excluded. Consider follow-up liver MRI once the patient's suspected acute hepatic pathology has i mproved. 3. Mild rectal wall thickening, mild thickening of the ascending colon, and a few thickened loops of small bowel. This likely due to the patient's cirrhosis/edematous state. ACT 112: Negative or not required by law. Electronically signed by: Luis Moreno M.D. 03/01/2022 10:33 AM
[2022-03-01] MEDS: POTASSIUM CHLORIDE CRTAB 20 MEQ TABCR PO SCH ×2 (13:57→20:42)
--- NOTE | 2022-03-01 16:43 | Hospitalist Progress Note ---
Date of Service March 01, 2022 Assessment & Plan (1) Alcoholic cirrhosis: Plan: Alcoholic cirrhosis with ascites, hepatosplenomegaly, portal venous hypertension Meld 18 Maddrew DF 17.1, no indication for steroids GI Consulted. Recommend to trend bilirubin, INR, LFTs at this time. INR 1.4, did receive vitamin K 10 mg on admission. No clinical signs of bleeding. Repeat INR 1.4 - CT w/ contrast: 1. Cirrhotic liver with evidence for portal hypertension. Diffusely heterogeneous enhancing liver. This is likely secondary to scattered areas of geographic steatosis and cirrhosis. An acute hepatitis on the background of chronic cirrhosis would be considered in the differential diagnosis. Underlying hepatic lesions are considered less likely but not entirely excluded. Consider follow-up liver MRI once the patient's suspected acute hepatic pathology has improved. Mild rectal wall thickening, mild thickening of the ascending colon, and a few thickened loops of small bowel. This likely due to the patient's cirrhosis/edematous state. - ?Liver protocol CT vs MRI followup Total bilirubin 5.1 from 5.6, AST/ALT downtrending Magnesium 1.5, repleted EBV serology pending Monoscreen negative Covid negative Hepatitis panel pending (2) Abdominal ascites: Plan: See above (3) Hypokalemia: Plan: Hypokalemia/hyponatremia- Sodium improving, 134 today Potassium normalized to 3.5 Magnesium low 1.5, repletion ordered (4) Acute hyponatremia: Plan: See above (5) Hepatosplenomegaly: Plan: See above (6) Alcohol abuse: Plan: Placed on AWSS protocol with IV Ativan. Doing well, has not required breakthrough doses for withdrawal Thiamine 100 mg p.o. every morning Folic acid 1 mg p.o. every morning (7) Jaundice of recent onset: Plan: See above (8) Fatigue: Plan: Fatigue and generalized body aches- Likely secondary to ongoing liver disease (9) Generalized body aches: Plan: See above Plan: DVT prophylaxis: SCDs Admission and Anticipated Discharge Date Admission Date: February 28, 2022 Subjective Seen at bedside this morning. Reports he feels okay. Denies tremors, shakes, hallucinations overnight. No seizures. Has not needed additional doses of Ativan. Notes his eyes have been yellow for a few days, is not sure earlier today. Denies vision change. Denies abdominal pain at bedside assessment. No fever/chills/sweats/lightheadedness. Ports he is eager to go to the hospital before Easter Review of Systems Review of Systems: All systems reviewed & are unremarkable except as noted in Subjective Physical Exam Physical Exam: General: A&Ox3. NAD. Cooperative. Skin warm, dry. No overt tremor. No asterixis. HEENT: Atraumatic, normocephalic. Scleral icterus is present. Pulm: CTAB A&P. -wheezes, -rales, -rhonchi. Symmetrical chest rise. No increase in work of breathing. No respiratory distress. Cardiac: RRR, -mrg. Radial pulses intact and symmetrical. Abdominal: Nontender, nondistended, soft. BS present. Results & Data Results & Data ([facility]) Vital Signs (Past 12 Hours) Vital Signs Temp Pulse Pulse Resp BP Pulse Ox 03/01/22 15:23 37 C 96 H 18 131/88 94 03/01/22 11:56 36.8 C 94 H 20 132/89 95 03/01/22 09:23 92 H 03/01/22 07:31 37.1 C 91 H 18 129/89 96 PG Care Time/CCT Total # of Minutes Spent Total Time Spent with Patient: Total time spent is greater than 50% in coordination of care (as documented) at patient's floor/unit and/or counseling patient: Coding Level of Care Code 63205 Subseq Hosp Care Lvl 2 Diagnoses Alcoholic cirrhosis K70.31 Ascites presence: with ascites Abdominal ascites K70.31 Ascites type: due to alcoholic cirrhosis Hypokalemia E87.6 Acute hyponatremia E87.1 Hepatosplenomegaly R16.2 Alcohol abuse F10.10 Jaundice of recent onset R17 Fatigue R53.83 Generalized body aches R52 (1) Alcoholic cirrhosis Ascites presence: with ascites Qualified Code(s): K70.31 - Alcoholic cirrhosis of liver with ascites (2) Abdominal ascites Ascites type: due to alcoholic cirrhosis Qualified Code(s): K70.31 - Alcoholic cirrhosis of liver with ascites
[2022-03-02 07:41] LABS: Basophils # (auto) 0.03 K/uL (0-0.2); Basophils % (auto) 0.6 %; Eosinophils # (auto) 0.06 K/uL (0-0.5); Eosinophils % (auto) 1.1 %; Hemoglobin 13.2 g/dL (14.0-18.0); Lymphocytes # (auto) 0.78 K/uL (1.2-3.4); Lymphocytes % (auto) 14.6 %; Mean Corpuscular Hemoglobin 37.5 pg (25-34); Mean Corpuscular Hgb Conc 34.7 g/dL (32-36); Mean Platelet Volume 10.1 fL (7.4-10.4); Monocytes # (auto) 0.77 K/uL (0.11-0.59); Monocytes % (auto) 14.4 %; Neutrophils # (auto) 3.71 K/uL (1.4-6.5); Neutrophils % (auto) 69.3 %; Platelet Count 153 K/uL (130-400); RDW Coefficient of Variation 13.5 % (11.5-14.5); RDW Standard Deviation 53.1 fL (36.4-46.3); Red Blood Count 3.52 M/uL (4.7-6.1); White Blood Count 5.35 K/uL (4.8-10.8)
[2022-03-02 07:50] LABS: INR 1.4 (0.9-1.1); Partial Thromboplastin Time 28.2 Seconds (21.0-31.0)
[2022-03-02] MEDS: MAGNESIUM OXIDE 400 MG TAB PO SCH (07:53)
[2022-03-02] MEDS: THIAMINE HCL 100 MG TAB PO SCH (07:54)
[2022-03-02] MEDS: POTASSIUM CHLORIDE CRTAB 20 MEQ TABCR PO SCH (07:54)
[2022-03-02] MEDS: FOLIC ACID 1 MG TAB PO SCH (07:54)
[2022-03-02 08:01] LABS: Albumin Globulin Ratio 0.7 (0.9-2); Albumin Level 3.3 gm/dl (3.4-5.0); BUN Creatinine Ratio 7.5 (10-20); Bilirubin,Total 4.5 mg/dl (0.2-1.0); Calcium 8.8 mg/dl (8.5-10.1); Creatinine Clr Calc Pharmacy 163.4 ml/min; Est GFR (African American) 132.6 ml/min; Est GFR (Non-African American) 114.4 ml/min; Globulin 4.5 gm/dl (2.5-4.0); Magnesium 1.6 mg/dl (1.7-2.4); Phosphorus 3.4 mg/dl (2.5-4.9); Potassium 3.8 mmol/L (3.5-5.1); Total Protein 7.8 gm/dl (6.0-8.3)
--- NOTE | 2022-03-02 09:47 | Gastroenterology Progress Note ---
Date of Service March 02, 2022 Assessment & Plan (1) Alcoholic cirrhosis: Plan: Without ascites, but with evidence of portal hypertension. -Discussed importance of alcohol abstinence -Will require outpatient HCC surveillance, triphasic liver CT or MRI when acute hepatitis resolves, & EGD for variceal surveillance. -Patient is to follow-up as an outpatient for further monitoring/management (2) Elevated liver enzymes: Plan: Suspect super-imposed hepatitis on top of chronic cirrhosis; History suspicious for alcoholic cirrhosis, but discriminant function does not warrant steroid use. INR has remained stable at 1.4 throughout the hospitalization. We do not have previous INRs so this could be baseline. Labs are pending to rule out infectious Hep A, B, & C along with lyme testing. Bilirubin is improving and CT does not show ascites or acute biliary abnormalities necessitating GI inpatient intervention. We would ask that he have close follow-up of LFTs upon discharge, but could take 6-8 weeks for bilirubin to return to (unknown) baseline. As noted above, he will need close follow-up with our office upon discharge and I will have our staff reach out to him to arrange this appointment. Admission and Anticipated Discharge Date Admission Date: February 28, 2022 Subjective Patient is a 47 yo male with elevated bilirubin. CT imaging from admission is suggestive of an acute liver injury/hepatitis super imposing chronic cirrhosis. Monospot negative; Hep A, B, C, Lyme, Babieosis testing pending. Patient denies recent antibiotic use or supplement use. Does drink alcohol 5+ drinks daily, so concern for alcoholic hepatitis is on the differential. INR remains at 1.4 (could be patient's baseline). T Bili is declining to 4.5 today. AST 102, ALT normal at 37 suggestive of alcohol as well. He denies recent viral symptoms of fever, chills, cough, nausea, vomiting, or diarrhea. CT did not indicate any ascites, however findings were as follows: * Diffusely heterogeneous enhancing liver. This is likely secondary to scattered areas of geographic steatosis and cirrhosis. An acute hepatitis on the background of chronic cirrhosis would be considered in the differential diagnosis. Underlying hepatic lesions are considered less likely but not entirely excluded. Consider follow-up liver MRI once the patient's suspected acute hepatic pathology has improved. Mild rectal wall thickening, mild thickening of the ascending colon, and a few thickened loops of small bowel. This likely due to the patient's cirrhosis/edematous state. Review of Systems Constitutional: no fever and no chills Gastrointestinal: no abdominal pain, no diarrhea/loose stools and no blood in stools Physical Exam Constitutional: well developed Respiratory: normal respiratory effort Gastrointestinal (Abdomen): Inspection/Auscultation: abdomen normal to inspection Percussion/Palpation: abdomen soft; abdomen nontender Psychiatric: Orientation: alert and oriented x 3 Results & Data Results & Data ([facility]) Vital Signs (Past 12 Hours) Vital Signs Temp Pulse Pulse Resp BP Pulse Ox 03/02/22 07:46 37.6 C H 79 18 128/82 98 03/02/22 07:41 67 03/02/22 03:24 37.0 C 85 18 124/83 97 03/01/22 22:41 37.5 C 75 18 124/79 95 PG Care Time/CCT Total # of Minutes Spent Total Time Spent with Patient: Total time spent is greater than 50% in coordination of care (as documented) at patient's floor/unit and/or counseling patient: Coding Level of Care Code 72354 Subseq Hosp Care Lvl 3 Diagnoses Alcoholic cirrhosis K70.31 Ascites presence: with ascites Elevated liver enzymes R74.8 (1) Alcoholic cirrhosis Ascites presence: with ascites Qualified Code(s): K70.31 - Alcoholic cirrh osis of liver with ascites
--- NOTE | 2022-03-02 12:40 | Discharge Summary ---
Date of Service March 02, 2022 Admission HPI Per Admitting Provider The patient is a 47-year-old male with a past medical history including abnormal liver enzymes, generalized body aches, fatigue, elevated blood pressure reading without diagnosis of hypertension, lactose intolerance, snoring, elevated liver enzymes, babesiosis, lumbosacral back pain and alcohol abuse. He presents emergency department as noted above. Significant laboratories in the ED: Sodium 128, potassium 3.0, glucose 111, total bilirubin 5.6, direct bilirubin 2.4, AST 152 CT scan of abdomen and pelvis with contrast: Enlarged heterogeneous liver with nodular liver contour compatible with cirrhosis. There is somewhat focal hypertrophy of the caudate which an underlying lesion cannot be excluded. Consider multiphase liver protocol CT for to further evaluate Principal Diagnosis alcoholic liver cirrhosis Discharge Exam The patient is awake, alert and oriented 3, well developed and well nourished, normocephalic and atraumatic, lying in bed and in no acute distress. HEENT--PERRL, EOMI, mucous membranes and oropharynx mildly dry, jaundicd Neck--supple. No JVD. No bruits. Thyroid normal, trachea midline, no adenopathy. Heart--normal S1 and S2. No murmurs, rubs or gallops. Lungs--clear bilaterally, no respiratory distress, no accessory muscle use. Abdomen--normal bowel sounds and soft. Extremities--no cyanosis or clubbing. No edema. Dermatologic--normal skin turgor, normal color, no abnormal lymph nodes, no rash. Neurologic--cranial nerves II through XII grossly intact. Rheumatologic--normal range of motion. Psychiatric--normal affect. Discharge Data Allergies Allergy/AdvReac Type Severity Reaction Status Date / Time No Known Allergies Allergy Verified 02/28/22 22:16 Consultations 02/28/22 21:41 ED Decision to Admit Stat 03/01/22 04:55 Consult Gastroenterology Routine Ordered Studies 02/28/22 21:05 CT abd pelvis IV con only Urgent Hospital Course (1) Alcoholic cirrhosis: Alcoholic cirrhosis with ascites, hepatosplenomegaly, portal venous hypertension Meld 18 Maddrew DF 17.1, no indication for steroids GI Consulted. Recommend to trend bilirubin, INR, LFTs at this time. INR 1.4, did receive vitamin K 10 mg on admission. No clinical signs of bleeding. Repeat INR 1.4 - CT w/ contrast: 1. Cirrhotic liver with evidence for portal hypertension. Diffusely heterogeneous enhancing liver. This is likely secondary to scattered areas of geographic steatosis and cirrhosis. An acute hepatitis on the background of chronic cirrhosis would be considered in the differential diagnosis. Underlying hepatic lesions are considered less likely but not entirely excluded. Consider follow-up liver MRI once the patient's suspected acute hepatic pathology has improved. Mild rectal wall thickening, mild thickening of the ascending colon, and a few thickened loops of small bowel. This likely due to the patient's cirrhosis/edematous state. - ?Liver protocol CT vs MRI followup Total bilirubin 5.1 from 5.6, AST/ALT downtrending Magnesium 1.5, repleted EBV serology pending Monoscreen negative Covid negative Hepatitis panel pending -Outpatient follow up with GI (2) Abdominal ascites: See above (3) Hypokalemia: Hypokalemia/hyponatremia- Sodium improving, 134 today Potassium normalized to 3.5 Magnesium low 1.5, repletion ordered (4) Acute hyponatremia: See above (5) Hepatosplenomegaly: See above (6) Alcohol abuse: Placed on AWSS protocol with IV Ativan. Doing well, has not required breakthrough doses for withdrawal Thiamine 100 mg p.o. every morning Folic acid 1 mg p.o. every morning (7) Jaundice of recent onset: See above (8) Fatigue: Fatigue and generalized body aches- Likely secondary to ongoing liver disease (9) Generalized body aches: See above DVT prophylaxis: SCDs Total Time Total Time Spent Total Time Spent (In Minutes): 35 Discharge Plan Discharge Items Patient Disposition: Home - Self-Care Reason For Visit: ABDOMINAL PAIN, LIVER CIRRHOSIS Discharge Diagnosis: alcoholic liver cirrhosi Condition on Discharge: Fair Activity: Resume your previous activity Non-emergency contact: Primary Care Provider and Driller Operator Call non-emergency contact if: you have any medication questions and your symptoms worsen Follow-up/Referrals: Mohsen Laboy CRNP [Primary Care Provider] - Diet: Regular Addtl Attending Provider Instructions: please make appointment to follow up with your GI doctor Pending Studies at Discharge: Yes Studies:: viral hepatitis panel Stand-Alone Forms: My [employer], Smoking Cessation Medications and DC Order Prescriptions: New thiamine HCl (vitamin B1) 100 mg Tablet 100 mg PO QAM 5 Days Qty: 5 RF: 0 folic acid 1 mg Tablet 1 mg PO QAM 5 Days Qty: 5 RF: 0 Discontinued atovaquone [Mepron] 750 mg/5 mL suspension 750 mg PO BID RF: 0 aspirin 325 mg Tablet 325 mg PO BID PRN (Reason: Headaches /pain) RF: 0 Discharge Orders: Discharge Order (Routine); Ordered 03/02/22 Ordered By: Tamela Alva Admission Data Admit Date/Time: 02/28/22 22:53 Attending Provider: Tamela Alva Admit Provider: Raphael Rajput Primary Care Provider: Mohsen Laboy Other Providers: Raphael Rajput ; Praveen Alex Other Interventions: Discharge Summary Assessment (RN) Last Done: 03/02/22 11:30 Coding Level of Care Code D/C DAY MANAGEMENT >30 MINS Diagnoses Alcoholic cirrhosis K70.31 Ascites presence: with ascites Abdominal ascites K70.31 Ascites type: due to alcoholic cirrhosis Hypokalemia E87.6 Acute hyponatremia E87.1 Hepatosplenomegaly R16.2 Alcohol abuse F10.10 Jaundice of recent onset R17 Fatigue R53.83 Generalized body aches R52 Time Spent (min) 35
[2022-03-05 16:04] LABS: EBV Nuclear Ag Antibody <18.00 U/mL; EBV Virus Capsid Ag IgG Ab <18.00 U/mL; Epstein Barr Virus Early Ag Ab <9.00 U/mL
== END 2022-03-02 12:47 | disposition home or self-care (01) | DRG 433 ==
LOC: ED 19:50 → SUATTDRO 22:53 → INTOOBSV 22:53 → 2N 22:53

== ENCOUNTER 2022-11-22 09:34 | Inpatient (IN) ==
--- NOTE | 2022-11-22 10:04 | Emergency Department Note ---
Impression & Plan Fluid overload, Elevated liver enzymes, Alcoholic cirrhosis, Abdominal ascites ED Provider Note Name: IGOR ALBERTO Age: 47 Sex: M Arrives Via: Walk-In Informant: Patient ED Provider: Yamil Brown MD Chief Complaint: Fluid overload Impression: As per impressions above Medical Decision Makin-year-old gentleman with a history of alcohol abuse and developed cirrhosis. Most recent hospitalization about 9 months ago. Did return to drinking but then quit about 4 weeks ago after worsening fluid overload again. Arrives severely edematous and abdomen. He has moderate short of breath likely secondary to fluid amount on his abdomen. No overt evidence of CHF/pulmonary edema at this time on cxr. Labs are consistent with worsening of his LFTs and an elevated bi lirubin. INR is slightly elevated as well. Patient does not appear to have any hepatic encephalopathy at this time but does have a mild tremor. Given the significant worsening of his LFTs, his severe fluid overload and likely need for IV Lasix hospitalist was consulted for further management. Prior Medical Record and Triage/Nursing Notes reviewed by Me Additional history obtained from previous hospitalization records and outpatient records including his most recent laboratory testing Differentials:Liver, failure, renal failure, electrolyte imbalance, heart failure, SBP, hepatic encephalopathy, other infectious etiology, DVT/PE, multiple other pathologies considered Vital Signs: reviewed and remarkable for no significant abnormalities Interventions: Patient was given IV furosemide 40 mg Labs:Reviewed and remarkable for elevated bilirubin compared to previous, elevated INR Imagin view chest x-ray interpreted by me shows mild bilateral atelectasis with little elevated right hemidiaphragm, no overt pulmonary edema or infiltrate appreciated. Consults:Dr Thierno MACKENZIE Hospitalist Plan: Disposition:Hospitalization. Condition: Good History of Present Illness: 47-year-old gentleman arrives for evaluation of worsening fluid overload. Patient with a history of alcohol abuse and cirrhosis of the liver with hospitalization about 9 months ago for fluid overload at that time. States he initially been doing well though did start drinking alcohol again a few months ago. Notes increasing fluid overload the last few weeks. He has not drank any alcohol in 4 weeks per patient. He does state that he increased his 20 mg of Lasix once daily to twice daily over the last 2 weeks as well. Does feel he is losing weight mostly through muscle mass while he gains more fluid. Notes unable to lay flat due to shortness of breath when doing so. States severely exhausted with any exertion. Denies any chest pain, abdominal pain, back pain, fevers, nausea, vomiting, other concerning signs or symptoms at this time. Past Medical History:Alcohol abuse, cirrhosis Other past history reviewed as per chart Vitals:Blood Pressure: 153/97, Pulse 98, RR 18, T 36.8C, O2 97% on RA Physical Exam: GENERAL: Patient is unwell appearing and in minimal distress. EYES: Jaundice sclera RESPIRATORY: Crackles bilateral bases, clear apex CARDIOVASCULAR: Regular rate and rhythm.No murmurs, rubs, gallops appreciated. GASTROINTESTINAL: Distended caput abdomen with fluid wave, distant bowel sounds, no TTP EXTREMITIES: Normal motion all extremities, cachectic upper extremities, 4+ pitting edema bilateral legs. NEUROLOGIC: Alert and oriented, no focal weakness, mild tremor noted SKIN: No rash, ++ jaundice, no diaphoresis. ED Course: Times/Reassessments: Patient agreeable to hospitalization and stable throughout. Yamil Brown MD Past Med/Surg History Medical History (Updated 11/22/22 @ 12:49 by Radha Pa DO) Abdominal ascites Acid reflux Alcohol abuse Alcoholic cirrhosis Anxiety Babesiosis (~09/2020) Elevated blood pressure reading in office without diagnosis of hypertension Elevated liver enzymes Fatigue Generalized body aches Gout Hepatosplenomegaly Tick bite Family History Mother Anxiety Father Heart disease Hypertension Sister Anxiety Denies family history of Ovarian cancer Prostate cancer Myocardial infarction Breast cancer Colorectal cancer Social History Smoking Status: Never smoker Second Hand Exposure: No; Hx Alcohol Use: Yes Alcohol type: beer Hx Substance Use: No Preferred Language: Guatemalan Communication Ability: Effective Visual Impairment: No Limitations Hearing Ability: Normal Hotel Or Motel Cleaning Supervisor Required: No Beliefs That Will Affect Care: None Current Living Situation: Alone Current Living Situation Comment: self current occupational status: employed 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 Feels Safe at Home: Yes Childhood Exposure to Second-Hand Smoke: No caffeine: Yes (diet pepsi) during the past year weight has: remained stable Dental Care, Regularly: No Physical Activity Frequency: 1-2 Times per Week Seatbelt Use: always Sunscreen Use: Yes Assistive Devices: None Allergies Allergies Allergy/AdvReac Type Severity Reaction Status Date / Time No Known Allergies Allergy Verified 03/20/22 08:03 Home Meds Previous Rx's Medication Instructions Recorded buspirone 7.5 mg tablet 7.5 mg PO BID #60 tabs 09/11/22 potassium chloride 10 mEq 10 meq PO DAILY #30 tabs 09/12/22 tablet,extended release(part/cryst) furosemide 20 mg tablet 20 mg PO DAILY PRN edema #30 tabs 11/20/22 Results & Data (ED) Vital Signs Vital Signs - 24 hr 11/22/22 09:40 11/22/22 10:36 11/22/22 12:00 Temperature 36.8 C 36.9 C Temperature Source Oral Oral Pulse Rate 98 H Pulse Rate [Finger] 88 82 Respiratory Rate 18 16 14 Blood Pressure 153/97 H Blood Pressure [Left Arm] 134/80 154/79 H Blood Pressure Mean 115 Blood Pressure Mean [Left Arm] 98 104 Pulse Oximetry 97 98 97 Oxygen Delivery Method Room Air Sepsis Recent Fever Within 48 Hours No Sepsis New/Unexplained Change in Mental Status No Sepsis Action Taken by Nursing No Action Required Laboratory Data 11/22/22 10:00 11/22/22 10:00 Lab Results 11/22/22 11/22/22 11/22/22 Range/Units 10:00 10:00 10:00 WBC 5.09 (4.8-10.8) K/ul RBC 3.87 L (4.63-6.08) M/uL Hgb 14.9 (14.0-18.0) g/dl Hct 41.5 (40.1-51.0) % MCV 107.2 H (80.0-100.0) fL MCH 38.5 H (25.0-34.0) pg MCHC 35.9 (32.0-36.0) g/dL RDW Std Deviation 51.2 H (36.4-46.3) fL RDW Coeff of Coby 13.0 (11.5-14.5) % Plt Count 165 (130-400) K/uL MPV 9.2 L (9.4-12.4) fL Immature Gran % (Auto) 0.2 % Neut % (Auto) 63.6 % Lymph % (Auto) 22.0 % Cole % (Auto) 11.6 % Eos % (Auto) 1.6 % Baso % (Auto) 1.0 % Neut # (Auto) 3.24 (1.4-6.5) K/uL Lymph # (Auto) 1.12 L (1.2-3.4) K/uL Cole # (Auto) 0.59 (0.24-0.82) K/uL Eos # (Auto) 0.08 (0-0.50) K/uL Baso # (Auto) 0.05 (0-0.2) K/uL Immature Gran # (Auto) 0.01 (0.00-0.02) K/uL PT 14.2 H (9.0-12.0) Seconds INR 1.4 H (0.9-1.1) APTT 29.1 (21.0-31.0) Seconds PTT Ratio 1.1 Sodium 132 L (136-145) mmol/L Potassium 3.2 L (3.5-5.1) mmol/L Chloride 97 L (98-107) mmol/L Carbon Dioxide 25 (21-32) mmol/L Anion Gap 10 (3-11) BUN 6 (6-23) mg/dl Creatinine 0.88 (0.6-1.4) mg/dl Est Cr Clr Drug Dosing 133.2 ml/min Est GFR ( Amer) 118.6 ml/min Est GFR (Non-Af Amer) 102.3 ml/min BUN/Creatinine Ratio 6.8 L (10-20) Glucose 98 (70-99(Fasting)) mg/dl Calcium 9.3 (8.5-10.1) mg/dl Phosphorus 3.4 (2.5-4.9) mg/dl Magnesium 2.1 (1.7-2.4) mg/dl Total Bilirubin 5.7 H (0.2-1.0) mg/dl Direct Bilirubin 1.7 H (0-0.2) mg/dl AST 69 H (13-39) U/L ALT 30 (7-52) U/L Alkaline Phosphatase 156 H (34-104) U/L Ammonia Troponin I High Sens 13.9 (0-20) pg/ml B-Natriuretic Peptide (0-100) pg/ml Total Protein 9.6 H (6.0-8.3) gm/dl Albumin 3.4 (3.4-5.0) gm/dl Ethyl Alcohol mg/dL (<10.0) mg/dl 11/22/22 11/22/22 11/22/22 Range/Units 10:00 10:31 10:31 WBC (4.8-10.8) K/ul RBC (4.63-6.08) M/uL Hgb (14.0-18.0) g/dl Hct (40.1-51.0) % MCV (80.0-100.0) fL MCH (25.0-34.0) pg MCHC (32.0-36.0) g/dL RDW Std Deviation (36.4-46.3) fL RDW Coeff of Coby (11.5-14.5) % Plt Count (130-400) K/uL MPV (9.4-12.4) fL Immature Gran % (Auto) % Neut % (Auto) % Lymph % (Auto) % Cole % (Auto) % Eos % (Auto) % Baso % (Auto) % Neut # (Auto) (1.4-6.5) K/uL Lymph # (Auto) (1.2-3.4) K/uL Cole # (Auto) (0.24-0.82) K/uL Eos # (Auto) (0-0.50) K/uL Baso # (Auto) (0-0.2) K/uL Immature Gran # (Auto) (0.00-0.02) K/uL PT (9.0-12.0) Seconds INR (0.9-1.1) APTT (21.0-31.0) Seconds PTT Ratio Sodium (136-145) mmol/L Potassium (3.5-5.1) mmol/L Chloride (98-107) mmol/L Carbon Dioxide (21-32) mmol/L Anion Gap (3-11) BUN (6-23) mg/dl Creatinine (0.6-1.4) mg/dl Est Cr Clr Drug Dosing ml/min Est GFR ( Amer) ml/min Est GFR (Non-Af Amer) ml/min BUN/Creatinine Ratio (10-20) Glucose (70-99(Fasting)) mg/dl Calcium (8.5-10.1) mg/dl Phosphorus (2.5-4.9) mg/dl Magnesium (1.7-2.4) mg/dl Total Bilirubin (0.2-1.0) mg/dl Direct Bilirubin (0-0.2) mg/dl AST (13-39) U/L ALT (7-52) U/L Alkaline Phosphatase (34-104) U/L Ammonia TNP Troponin I High Sens (0-20) pg/ml B-Natriuretic Peptide 87 (0-100) pg/ml Total Protein (6.0-8.3) gm/dl Albumin (3.4-5.0) gm/dl Ethyl Alcohol mg/dL < 10.0 (<10.0) mg/dl 11/22/22 Range/Units 11:48 WBC (4.8-10.8) K/ul RBC (4.63-6.08) M/uL Hgb (14.0-18.0) g/dl Hct (40.1-51.0) % MCV (80.0-100.0) fL MCH (25.0-34.0) pg MCHC (32.0-36.0) g/dL RDW Std Deviation (36.4-46.3) fL RDW Coeff of Coby (11.5-14.5) % Plt Count (130-400) K/uL MPV (9.4-12.4) fL Immature Gran % (Auto) % Neut % (Auto) % Lymph % (Auto) % Cole % (Auto) % Eos % (Auto) % Baso % (Auto) % Neut # (Auto) (1.4-6.5) K/uL Lymph # (Auto) (1.2-3.4) K/uL Cole # (Auto) (0.24-0.82) K/uL Eos # (Auto) (0-0.50) K/uL Baso # (Auto) (0-0.2) K/uL Immature Gran # (Auto) (0.00-0.02) K/uL PT (9.0-12.0) Seconds INR (0.9-1.1) APTT (21.0-31.0) Seconds PTT Ratio Sodium (136-145) mmol/L Potassium (3.5-5.1) mmol/L Chloride (98-107) mmol/L Carbon Dioxide (21-32) mmol/L Anion Gap (3-11) BUN (6-23) mg/dl Creatinine (0.6-1.4) mg/dl Est Cr Clr Drug Dosing ml/min Est GFR ( Amer) ml/min Est GFR (Non-Af Amer) ml/min BUN/Creatinine Ratio (10-20) Glucose (70-99(Fasting)) mg/dl Calcium (8.5-10.1) mg/dl Phosphorus (2.5-4.9) mg/dl Magnesium (1.7-2.4) mg/dl Total Bilirubin (0.2-1.0) mg/dl Direct Bilirubin (0-0.2) mg/dl AST (13-39) U/L ALT (7-52) U/L Alkaline Phosphatase (34-104) U/L Ammonia 27.0 Troponin I High Sens (0-20) pg/ml B-Natriuretic Peptide (0-100) pg/ml Total Protein (6.0-8.3) gm/dl Albumin (3.4-5.0) gm/dl Ethyl Alcohol mg/dL (<10.0) mg/dl Administered Medications Discontinued Medications Furosemide (Furosemide 40 Mg/4 Ml Vial) 40 mg IV ONE ONE Stop: 11/22/22 11:15 Last Admin: 11/22/22 11:29 Dose: 40 mg Documented By: ARS Imaging Data Radiologist's Impression: Chest X-Ray 11/22/22 09:59 XR chest 1V portable CLINICAL HISTORY: fluid overload COMPARISON STUDY: No previous studies for comparison. FINDINGS: Low lung volumes. Moderate elevation of the right hemidiaphragm has mildly increased since prior CT. Bibasilar opacities favor atelectasis. There is no evidence for pulmonary edema. No consolidation is identified to suggest pneumonia. Cardiac size is normal. Mediastinal contours are normal. IMPRESSION: 1. Low lung volumes with linear bibasilar densities suggestive of atelectasis. 2. No evidence for pulmonary edema. 3. Moderate elevation of the right hemidiaphragm. ACT 112: Negative or not required by law. Electronically signed by: Kiet Pena M.D. 11/22/2022 10:19 AM Discharge Plan Visit Data Chief Complaint: Illness Stated Complaint: FLUID BUILD UP ED Provider: Kevin,Yamil F Discharge Problem: Fluid overload, Elevated liver enzymes, Alcoholic cirrhosis, Abdominal ascites Forms Stand Alone Forms: [facility] Prescriptions Prescriptions: No Action buspirone 7.5 mg tablet 7.5 mg PO BID Qty: 60 2RF potassium chloride 10 mEq tablet,ER particles/crystals 10 meq PO DAILY Qty: 30 1RF furosemide 20 mg tablet 20 mg PO DAILY PRN (Reason: edema) Qty: 30 1RF Referrals Referrals: Mohsen Laboy CRNP [Primary Care Provider] - : Fluid overload Qualifiers: Hypervolemia type: other Qualified Code(s): E87.79 - Other fluid overload Alcoholic cirrhosis Qualifiers: Ascites presence: with ascites Qualified Code(s): K70.31 - Alcoholic cirrhosis of liver with ascites Abdominal ascites Qualifiers: Ascites type: due to alcoholic cirrhosis Qualified Code(s): K70.31 - Alcoholic cirrhosis of liver with ascites
[2022-11-22 10:20] LABS: Basophils # (auto) 0.05 K/uL (0-0.2); Eosinophils # (auto) 0.08 K/uL (0-0.50); Eosinophils % (auto) 1.6 %; Hematocrit (blood only) 41.5 % (40.1-51.0); Hemoglobin 14.9 g/dl (14.0-18.0); Immature Granulocytes # (auto) 0.01 K/uL (0.00-0.02); Immature Granulocytes % (auto) 0.2 %; Lymphocytes # (auto) 1.12 K/uL (1.2-3.4); Mean Corpuscular Hemoglobin 38.5 pg (25.0-34.0); Mean Corpuscular Hgb Conc 35.9 g/dL (32.0-36.0); Mean Corpuscular Volume 107.2 fL (80.0-100.0); Mean Platelet Volume 9.2 fL (9.4-12.4); Monocytes # (auto) 0.59 K/uL (0.24-0.82); Monocytes % (auto) 11.6 %; Neutrophils # (auto) 3.24 K/uL (1.4-6.5); Neutrophils % (auto) 63.6 %; Platelet Count 165 K/uL (130-400); RDW Standard Deviation 51.2 fL (36.4-46.3); Red Blood Count 3.87 M/uL (4.63-6.08); White Blood Count 5.09 K/ul (4.8-10.8)
--- NOTE | 2022-11-22 10:20 | XRay Report ---
XR chest 1V portable CLINICAL HISTORY: fluid overload COMPARISON STUDY: No previous studies for comparison. FINDINGS: Low lung volumes. Moderate elevation of the right hemidiaphragm has mildly increased since prior CT. Bibasilar opacities favor atelectasis. There is no evidence for pulmonary edema. No consoli dation is identified to suggest pneumonia. Cardiac size is normal. Mediastinal contours are normal. IMPRESSION: 1. Low lung volumes with linear bibasilar densities suggestive of atelectasis. 2. No evidence for pulmonary edema. 3. Moderate elevation of the right hemidiaphragm. ACT 112: Negative or not required by law. Electronically signed by: Kiet Pena M.D. 11/22/2022 10:19 AM
[2022-11-22 10:31] LABS: INR 1.4 (0.9-1.1); Partial Thromboplastin Ratio 1.1; Partial Thromboplastin Time 29.1 Seconds (21.0-31.0); Prothrombin Time 14.2 Seconds (9.0-12.0)
[2022-11-22 10:48] LABS: Albumin Level 3.4 gm/dl (3.4-5.0); BUN Creatinine Ratio 6.8 (10-20); Bilirubin Direct 1.7 mg/dl (0-0.2); Bilirubin,Total 5.7 mg/dl (0.2-1.0); Calcium 9.3 mg/dl (8.5-10.1); Creatinine Clr Calc Pharmacy 133.2 ml/min; Est GFR (African American) 118.6 ml/min; Est GFR (Non-African American) 102.3 ml/min; Magnesium 2.1 mg/dl (1.7-2.4); Phosphorus 3.4 mg/dl (2.5-4.9); Potassium 3.2 mmol/L (3.5-5.1); Total Protein 9.6 gm/dl (6.0-8.3)
[2022-11-22 10:54] LABS: Troponin I High Sensitivity 13.9 pg/ml (0-20)
[2022-11-22] MEDS ORDERED: FUROSEMIDE 40 MG/4 ML VIAL IV ONE (11:14)
--- NOTE | 2022-11-22 11:50 | History & Physical Report ---
Date of Service November 22, 2022 Assessment & Plan (1) Alcoholic cirrhosis: Plan: Acute decompensated liver cirrhosis Patient with liver cirrhosis, possibly secondary to EtOH use. He reports drinking 5 drinks/night - quit drinking for a while and recently resumed. Pr esents with 4 weeks of progressive ascites and LE edema, reported weight gain of 20-30 pounds. Laboratory studies as above. MELD=21. MDF=15.8, no indication for steroid use. -Admit to medical -Check acute hepatitis panel, Acetaminophen level, Etoh level, Ammonia, Ferritin -Check Portal Hepatic Venous US -Diuresis - Lasix was given in the ER - 40mg IV. Will monitor response, I/Os and daily weights -Continue Lasix - increase to 40mg po daily -Initiate Spironolactone 25mg po daily - if tolerated would increase to 100mg po daily for medical management of ascites -GI Consultation appreciated -Continue Low Na diet (2) Abdominal ascites: Plan: Patient with progressive ascites in setting of liver cirrhosis, possibly secondary to EtOH. -Diuretic management with Lasix and Spironolactone -Monitor I/Os, daily weights -Consider diagnostic paracentesis, SAAG calculation - no prior -GI consultation appreciated (3) Anxiety: Plan: Patient with anxiety, well controlled on Buspirone -Continue Buspirone 7.5mg po BID (4) Alcohol use: Plan: Patient with ongoing EtOH use, appx 5 drinks daily. No history of withdrawal. MDF=18.5, no indication for systemic steroid use. Patient does have macrocytosis with OHB=345 -Check B12 and Folate levels -B12 and Folate repletion F/E/N - Heplock. K repletion, repeat labs in AM, Low Na diet as tolerated Ppx - Lovenox 40mg Code - Full per discussion with patient Dispo - Admit to medical History of Present Illness Chief Complaint: abdominal ascites, tension Primary Care Provider: ARIAS Villar Jerry Carrasco is a 47yo male with history of GERD, EtOH abuse as well as babesiosis presenting with 4 weeks of progressive abdominal distention and LE edema. Patient initially presented to his PCP on 02/27/22 with complaint of new onset jaundice. He was found to have hepatosplenomegaly. Workup at that time revealed LZP=955, ALT=53, KK=252, TBili of 4.7 and Dbili of 2 and elevated Ferritin of 2842. Babesia titer of 1:80. Acute hepatitis panel negative. He had a CT of the abdomen which revealed a cirrhotic liver with scattered areas of geographic steatosis and cirrhosis as well as evidence of portal venous hypertension. He was evaluated by GI - findings thought to be secondary to alcoholic cirrhosis. Patient's numbers improved. He was seen by GI in clinic on April 03, 2022. Further workup included a NEGATIVE CHARLENE, Anti-Mitochondrial Antibody, Anti-Smooth Muscle Antibody, and an AFP of 5.7. Patient reports he has overall been doing well. He notes 4 weeks of progressive abdominal distention and bilateral LE edema. He thinks he has gained approximately 20-30 pounds. He denies fever, chills, chest pain, palpitations. His abdomen feels tense but does not hurt. No vomiting or diarrhea, no melena/hematochezia or hematemesis. Patient admitted to ER attending that he started drinking EtOH again a few months ago. He did not report this history to me. He takes Tylenol very limited. Denies blood transfusions, tattoos, recent travel, new medications or supplement use. Allergies Allergy/AdvReac Type Severity Reaction Status Date / Time No Known Allergies Allergy Verified 03/20/22 08:03 Home Medications Medication Instructions Recorded Confirmed Type buspirone 7.5 mg tablet 7.5 mg PO BID #60 tabs 09/11/22 Rx potassium chloride 10 mEq 10 meq PO DAILY #30 tabs 09/12/22 Rx tablet,extended release(part/cryst) furosemide 20 mg tablet 20 mg PO DAILY PRN edema #30 tabs 11/20/22 Rx Past Med/Surg History Medical History (Updated 11/22/22 @ 12:49 by Radha Pa DO) Abdominal ascites Acid reflux Alcohol abuse Alcoholic cirrhosis Anxiety Babesiosis (~09/2020) Elevated blood pressure reading in office without diagnosis of hypertension Elevated liver enzymes Fatigue Generalized body aches Gout Hepatosplenomegaly Tick bite Family History Mother Anxiety Father Heart disease Hypertension Sister Anxiety Denies family history of Ovarian cancer Prostate cancer Myocardial infarction Breast cancer Colorectal cancer Social History Smoking Status: Never smoker Second Hand Exposure: No; Hx Alcohol Use: Yes Alcohol type: beer Hx Substance Use: No Preferred Language: [place] Communication Ability: Effective Visual Impairment: No Limitations Hearing Ability: Normal Truck Driver Required: No Beliefs That Will Affect Care: None Current Living Situation: Alone Current Living Situation Comment: self current occupational status: employed 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 Feels Safe at Home: Yes Childhood Exposure to Second-Hand Smoke: No caffeine: Yes (diet pepsi) during the past year weight has: remained stable Dental Care, Regularly: No Physical Activity Frequency: 1-2 Times per Week Seatbelt Use: always Sunscreen Use: Yes Assistive Devices: None Review of Systems Review of Systems: All systems reviewed & are unremarkable except as noted in HPI & below Physical Exam Physical Exam: General: patient resting comfortably, NAD, non-toxic in appearance, AA&O x 4 Skin: warm, dry, intact, no rashes or lesions, +Jaundice and scleral icterus HEENT: NC/AT, PERRL, EOMI, +icteric sclera, conjunctiva without injection, external ear normal to inspection and nontender, nares patent, moist mucus membranes, dentition intact, no oropharyngeal lesions, neck supple, trachea midline, no LAD, no thyromegaly, no JVD Heart: +S1/S2, regular, no m/r/g Lungs: equal air entry bilaterally, no rales/rhonchi/wheezes Abd: +BS, tense ascites with fluid wave, non-tender abdomen, hepatic exam limited due to presence of ascites Ext: warm, 2+ pulses in UE/LE bilaterally, 3+ pitting edema of bilateral LE, thighs, +scrotal edema reported as well Neuro: nonfocal, patient AA&O x 4, speech intact, no facial droop, moving all extremities on command with equal strength 5/5, no asterixis Results & Data Results & Data ([facility]) Vital Signs (Past 12 Hours) Vital Signs Temp Pulse Pulse Resp BP BP Pulse Ox 11/22/22 10:36 88 16 134/80 98 11/22/22 09:40 36.8 C 98 H 18 153/97 H 97 O2 Del Method 11/22/22 10:36 11/22/22 09:40 Room Air Laboratory Results Laboratory Results WBC 5.09 K/ul (4.8-10.8) 11/22/22 10:00 RBC 3.87 M/uL (4.63-6.08) L 11/22/22 10:00 Hgb 14.9 g/dl (14.0-18.0) 11/22/22 10:00 Hct 41.5 % (40.1-51.0) 11/22/22 10:00 MCV 107.2 fL (80.0-100.0) H 11/22/22 10:00 MCH 38.5 pg (25.0-34.0) H 11/22/22 10:00 MCHC 35.9 g/dL (32.0-36.0) 11/22/22 10:00 RDW Std Deviation 51.2 fL (36.4-46.3) H 11/22/22 10:00 RDW Coeff of Coby 13.0 % (11.5-14.5) 11/22/22 10:00 Plt Count 165 K/uL (130-400) 11/22/22 10:00 MPV 9.2 fL (9.4-12.4) L 11/22/22 10:00 Immature Gran % (Auto) 0.2 % 11/22/22 10:00 Neut % (Auto) 63.6 % 11/22/22 10:00 Lymph % (Auto) 22.0 % 11/22/22 10:00 Eddy % (Auto) 11.6 % 11/22/22 10:00 Eos % (Auto) 1.6 % 11/22/22 10:00 Baso % (Auto) 1.0 % 11/22/22 10:00 Neut # (Auto) 3.24 K/uL (1.4-6.5) 11/22/22 10:00 Lymph # (Auto) 1.12 K/uL (1.2-3.4) L 11/22/22 10:00 Eddy # (Auto) 0.59 K/uL (0.24-0.82) 11/22/22 10:00 Eos # (Auto) 0.08 K/uL (0-0.50) 11/22/22 10:00 Baso # (Auto) 0.05 K/uL (0-0.2) 11/22/22 10:00 Immature Gran # (Auto) 0.01 K/uL (0.00-0.02) 11/22/22 10:00 PT 14.2 Seconds (9.0-12.0) H 11/22/22 10:00 INR 1.4 (0.9-1.1) H 11/22/22 10:00 APTT 29.1 Seconds (21.0-31.0) 11/22/22 10:00 PTT Ratio 1.1 11/22/22 10:00 Sodium 132 mmol/L (136-145) L 11/22/22 10:00 Potassium 3.2 mmol/L (3.5-5.1) L 11/22/22 10:00 Chloride 97 mmol/L (98-107) L 11/22/22 10:00 Carbon Dioxide 25 mmol/L (21-32) 11/22/22 10:00 Anion Gap 10 (3-11) 11/22/22 10:00 BUN 6 mg/dl (6-23) 11/22/22 10:00 Creatinine 0.88 mg/dl (0.6-1.4) 11/22/22 10:00 Est Cr Clr Drug Dosing 133.2 ml/min 11/22/22 10:00 Est GFR ( Amer) 118.6 ml/min 11/22/22 10:00 Est GFR (Non-Af Amer) 102.3 ml/min 11/22/22 10:00 BUN/Creatinine Ratio 6.8 (10-20) L 11/22/22 10:00 Glucose 98 mg/dl (70-99(Fasting)) 11/22/22 10:00 Calcium 9.3 mg/dl (8.5-10.1) 11/22/22 10:00 Phosphorus 3.4 mg/dl (2.5-4.9) 11/22/22 10:00 Magnesium 2.1 mg/dl (1.7-2.4) 11/22/22 10:00 Total Bilirubin 5.7 mg/dl (0.2-1.0) H 11/22/22 10:00 Direct Bilirubin 1.7 mg/dl (0-0.2) H 11/22/22 10:00 AST 69 U/L (13-39) H 11/22/22 10:00 ALT 30 U/L (7-52) 11/22/22 10:00 Alkaline Phosphatase 156 U/L (34-104) H 11/22/22 10:00 Ammonia 27.0 umol/L (18-72) 11/22/22 11:48 Troponin I High Sens 13.9 pg/ml (0-20) 11/22/22 10:00 B-Natriuretic Peptide 87 pg/ml (0-100) 11/22/22 10:31 Total Protein 9.6 gm/dl (6.0-8.3) H 11/22/22 10:00 Albumin 3.4 gm/dl (3.4-5.0) 11/22/22 10:00 Ethyl Alcohol mg/dL < 10.0 mg/dl (<10.0) 11/22/22 10:00 Impressions Chest X-Ray 11/22/22 09:59 XR chest 1V portable CLINICAL HISTORY: fluid overload COMPARISON STUDY: No previous studies for comparison. FINDINGS: Low lung volumes. Moderate elevation of the right hemidiaphragm has mildly increased since prior CT. Bibasilar opacities favor atelectasis. There is no evidence for pulmonary edema. No consolidation is identified to suggest pneumonia. Cardiac size is normal. Mediastinal contours are normal. IMPRESSION: 1. Low lung volumes with linear bibasilar densities suggestive of atelectasis. 2. No evidence for pulmonary edema. 3. Moderate elevation of the right hemidiaphragm. ACT 112: Negative or not required by law. Electronically signed by: Kiet Pena M.D. 11/22/2022 10:19 AM Code Status & VTE Plan VTE Prophylaxis Plan VTE Prophylaxis will be ordered: Yes PG Care Time/CCT Total # of Minutes Spent Total Time Spent with Patient: Total time spent is greater than 50% in coordination of care (as documented) at patient's floor/unit and/or counseling patient: Coding Level of Care Code 14768 INT INP/OBS CARE 2/55MIN Diagnoses Alcoholic cirrhosis K70.31 Ascites presence: with ascites Abdominal ascites K70.31 Ascites type: due to alcoholic cirrhosis Anxiety F41.9 Alcohol use Z78.9 (1) Abdominal ascites Ascites type: due to alcoholic cirrhosis Qualified Code(s): K70.31 - Alcoholic cirrhosis of liver with ascites (2) Alcoholic cirrhosis Ascites presence: with ascites Qualified Code(s): K70.31 - Alcoholic cirrhosis of liver with ascites
[2022-11-22] MEDS ORDERED: FUROSEMIDE 40 MG TAB PO PRN (12:55)
[2022-11-22 14:48] LABS: Appearance Urine Clear (Clear); Bilirubin Urine Negative (Negative); Blood Urine Negative (Negative); Color Urine Yellow; Glucose Urine UA Negative (Negative); Ketones Urine Negative (Negative); Leukocyte Esterase Urine Negative (Negative); Nitrite Urine Negative (Negative); Protein Urine Negative (Negative); Specific Gravity Urine 1.004 (1.000-1.030); Urobilinogen Urine Negative (Negative); pH Urine 6.5 (4.5-7.5)
[2022-11-22] MEDS ORDERED: LORazepam 2 MG/1 ML VIAL IV PRN (16:46)
[2022-11-22] MEDS ORDERED: POTASSIUM CHLORIDE CRTAB 20 MEQ TABCR PO STA (16:46)
[2022-11-22] MEDS: ENOXAPARIN INJ 40 MG/0.4 ML SYR SQ SCH (17:50)
[2022-11-22] MEDS: SPIRONOLACTONE 25 MG TAB PO SCH (17:51)
[2022-11-22 17:53] LABS: Vitamin B12 > 1500 pg/ml (180-914)
--- NOTE | 2022-11-22 20:59 | Ultrasound Report ---
US duplex portal hepatic veins HISTORY: 47 years-old Male worsening ascites cirrhosis with ascites. COMPARISON: CT abdomen and pelvis 02/28/2022 TECHNIQUE: Multiple real-time sonographic images of the hepatic vessels were obtained assessing russell ash appearance, color and spectral flow FINDINGS: Cirrhotic liver with abdominal ascites redemonstrated. Hepatopedal flow noted within the main, right and left portal veins. The hepatic artery is patent. Phasic waveforms noted within the patent IVC and hepatic veins. The portal splenic confluence is obscured by bowel gas. IMPRESSION: 1. Cirrhotic liver with ascites redemonstrated. 2. Patent hepatic vessels. ACT 112: Negative or not required by law. The above report was generated using voice recognition software. It may contain grammatical, syntax o r spelling errors. Electronically signed by: Ayush Dempsey M.D. 11/22/2022 8:57 PM
[2022-11-22] MEDS: busPIRone 7.5 MG TAB PO SCH (22:14)
[2022-11-23 06:44] LABS: Albumin Level 2.6 gm/dl (3.4-5.0); BUN Creatinine Ratio 8.1 (10-20); Bilirubin Direct 1.1 mg/dl (0-0.2); Calcium 7.8 mg/dl (8.5-10.1); Creatinine Clr Calc Pharmacy 158.4 ml/min; Est GFR (African American) 127.3 ml/min; Est GFR (Non-African American) 109.8 ml/min; Hemoglobin 11.4 g/dl (14.0-18.0); Mean Corpuscular Hgb Conc 36.8 g/dL (32.0-36.0); Mean Corpuscular Volume 103.3 fL (80.0-100.0); Mean Platelet Volume 9.3 fL (9.4-12.4); Platelet Count 139 K/uL (130-400); Potassium 3.3 mmol/L (3.5-5.1); RDW Coefficient of Variation 12.8 % (11.5-14.5); RDW Standard Deviation 48.6 fL (36.4-46.3); Total Protein 6.9 gm/dl (6.0-8.3); White Blood Count 4.41 K/ul (4.8-10.8)
[2022-11-23] MEDS: FOLIC ACID 1 MG TAB PO SCH (09:17)
[2022-11-23] MEDS: busPIRone 7.5 MG TAB PO SCH ×2 (09:17→20:04)
[2022-11-23] MEDS: SPIRONOLACTONE 25 MG TAB PO SCH ×2 (09:18→20:04)
[2022-11-23] MEDS: THIAMINE HCL 100 MG in SYRINGE 9 ML IV SCH (09:18)
[2022-11-23] MEDS ORDERED: POTASSIUM CHLORIDE CRTAB 20 MEQ TABCR PO STA (09:51)
--- NOTE | 2022-11-23 11:39 | Gastrointestinal Consultation ---
Date of Consultation November 23, 2022 Assessment & Plan (1) Alcoholic cirrhosis: (2) Ascites: Plan Patient is a 47 yo male with decompensated cirrhosis with worsening jaundice and ascites since resuming alcohol consumption over the past month. For the immediate hospitalization, would carry out the following: -Diagnostic & Therapeutic Paracentesis -Continue Lasix 40 mg daily -Continue Aldactone 100 mg daily -Sodium restricted diet with <2000 mg daily -Encourage alcohol cessation -Continue to monitor MELD labs daily (these are improving already since admission) -Await results of infectious hepatitis A, B, C studies (these have been negative in the past) As an outpatient, he will need the following: -Updated liver imaging with dedicated liver CT -AFP -Plan for routinely obtaining liver imaging with alternating modalities (CT, MRI, US) q 6 months and AFP q 6 months for HCC surveillance -2000 mg Sodium limit on his diet -Avoidance of NSAIDs and limiting Tylenol to <2000 mg daily -EGD for variceal surveillance -Screening colonoscopy -If not immune to hep A/B, will need immunization -100% alcohol abstinence -Continuation of Lasix & Aldactone titrated during hospitalization -Will need to move forward with his hepatology evaluation; [facility] hepatology has been trying to contact the patient to get him scheduled. Supervising Physician Co-Signing Physician Notes I personally evaluated the patient and agree with the findings as documented by ANUSHA Boateng History of Present Illness Attending Physician: Clarence Zimmer MD History of Present Illness Patient is a 47 yo male with a history of alcoholic cirrhosis with previous hospitalization for alcoholic hepatitis in 2021. He was last seen in our outpatient GI clinic in March 2022 after his hospitalization. He notes that after that time, he quit drinking alcohol entirely. He notes that over the past month, he began drinking due to it being hunting season. He notes that over those 4 weeks, he began to notice that his abdomen was filling up with fluid. He became incredibly distended. He was in the process of being set up with [facility] hepatology as an outpatient, but prior to being able to get that scheduled, he presented to the ED due to worsening abdominal distention and jaundice. His previous GI work-up was unremarkable for other etiologies of cirrhosis with negative infectious work-up as well as negative CHARLENE, AMA, ASMA. Last AFP 5.7. He denies any recent medical changes, medication changes, Tylenol use, or supplement use. No IVDA. Since admission, his labs are improving. His current MELD score is 19. Discriminant function 14.1. His INR is at baseline of 1.4. MCV 103.3. T bili has improved from 5.7 to 4.0 and Direct Bili is 1.1 (down from 1.7). AST 46, ALT 20, AP 106. Last CT scan in 2021 indicated cirrhosis. Portal venous US from 11/22/21 showed patent vessels and ascites. The patient denies GI bleeding, constipation, confusion, diarrhea, fever, chills, sweats, or other additional symptoms. His only complaint at present is jaundice and abdominal distention. Allergies Allergy/AdvReac Type Severity Reaction Status Date / Time No Known Allergies Allergy Verified 11/22/22 14:57 Home Medications Medication Instructions Recorded Confirmed Type buspirone 7.5 mg tablet 7.5 mg PO BID #60 tabs 09/11/22 11/22/22 Rx potassium chloride 10 mEq 10 meq PO DAILY #30 tabs 09/12/22 11/22/22 Rx tablet,extended release(part/cryst) furosemide 20 mg tablet 20 mg PO DAILY 11/22/22 11/22/22 History Patient History Medical History (Updated 11/23/22 @ 11:56 by Natividad Fermin PA-C) Abdominal ascites Acid reflux Alcohol abuse Alcoholic cirrhosis Anxiety Babesiosis (~09/2020) Elevated blood pressure reading in office without diagnosis of hypertension Elevated liver enzymes Fatigue Generalized body aches Gout Hepatosplenomegaly Tick bite Family History Mother Anxiety Father Heart disease Hypertension Sister Anxiety Denies family history of Ovarian cancer Prostate cancer Myocardial infarction Breast cancer Colorectal cancer Social History Smoking Status: Never smoker Second Hand Exposure: No; Hx Alcohol Use: Yes Alcohol type: beer Hx Substance Use: No Preferred Language: Turkish Communication Ability: Effective Visual Impairment: No Limitations Hearing Ability: Normal Tele Marketing Executive Required: No Beliefs That Will Affect Care: None Current Living Situation: Alone Current Living Situation Comment: self current occupational status: employed 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 Other Information That Helps Us Care for You: No Feels Safe at Home: Yes Childhood Exposure to Second-Hand Smoke: No caffeine: Yes (diet pepsi) during the past year weight has: remained stable Dental Care, Regularly: No Physical Activity Frequency: 1-2 Times per Week Seatbelt Use: always Sunscreen Use: Yes Assistive Devices: None Review of Systems Constitutional: no fever and no chills Respiratory: no cough and no dyspnea Cardiovascular: no chest pain Gastrointestinal: + bloating and + problem reported (abdominal distention); no blood in stools and no melena Integumentary: + yellowing of the skin Psychiatric: no problem reported Physical Exam Constitutional: well developed Respiratory: normal respiratory effort Cardiovascular: Rate/Rhythm: regular rate Gastrointestinal (Abdomen): Inspection/Auscultation: + abdomen distended Percussion/Palpation: + ascites; abdomen nontender Musculoskeletal: Head/Neck/Chest: normocephalic Skin: + jaundice Psychiatric: Orientation: alert and oriented x 3 Results & Data ([facility]) Vital Signs (Past 12 Hours) Vital Signs Temp Pulse Resp BP Pulse Ox O2 Del Method 11/23/22 08:39 97 H 98 Room Air 11/23/22 07:49 36.8 C 98 H 16 135/87 92 Room Air 11/23/22 03:33 36.9 C 98 H 16 114/75 98 Room Air PG Care Time/CCT Total # of Minutes Spent Total Time Spent with Patient: Total time spent is greater than 50% in coordination of care (as documented) at patient's floor/unit and/or counseling patient: Coding Level of Care Code INP/OBS CONSULT LVL 4, 60 MIN Diagnoses Alcoholic cirrhosis K70.31 Ascites presence: with ascites Ascites R18.8 (1) Alcoholic cirrhosis Ascites presence: with ascites Qualified Code(s): K70.31 - Alcoholic cirrhosis of liver with ascites
--- NOTE | 2022-11-23 14:40 | Ultrasound Report ---
ULTRASOUND-GUIDED DIAGNOSTIC AND THERAPEUTIC PARACENTESIS: HISTORY: Ascites Procedure: The procedure and its risks, benefits and alternatives were discussed with the patient and written informed consent was obtained. Preliminary ultrasound of the abdomen was performed to determ ine a safe needle entry site. The left lower quadrant was prepped and draped in the usual sterile fashion. 1% Lidocaine was used fo r local anesthesia. A paracentesis needle-sheath was inserted into the peritoneal space using ultraso und guidance. The needle was removed and the sheath was connected to tubing and a vacuum suction rigo ce. A total of 4 liters of yellow ascites was aspirated. The sheath was removed and a sterile dressin g applied. The patient tolerated the procedure well and there were no immediate complications. IMPRESSION: Ultrasound-guided diagnostic and therapeutic paracentesis with aspiration of 4 liters of ascites. No additional fluid was obtained due to the patient's first paracentesis. 1 L was sent to the laboratory at the request of the referring physician. ACT 112: Negative or not required by law. Electronically signed by: Luis Moreno M.D. 11/23/2022 2:39 PM
--- NOTE | 2022-11-23 14:46 | Hospitalist Progress Note ---
Date of Service November 23, 2022 Assessment & Plan (1) Alcoholic cirrhosis: Plan: Acute decompensated liver cirrhosis from continued alcohol intake. Appreciate gastroenterology consult and recommendations. Paracentesis later today, November 23. He is now on spironolactone. Will monitor intake and output. MELD=21. MDF=15.8, no indication for steroid use. Acute hepatitis panel is pending. Portal Hepatic Venous US is pending. He is now on Lasix and spironolactone. (2) Abdominal ascites: Plan: Patient with progressive ascites in setting of liver cirrhosis, secondary to EtOH. Diuretic management with Lasix and Spironolactone. Monitor I/Os, daily weights. Paracentesis hopefully later today, November 23. GI consultation appreciated (3) Anxiety: Plan: well controlled on Buspirone (4) Alcohol use: Plan: Patient with ongoing EtOH use, appx 5 drinks daily. No history of withdrawal. MDF=18.5, no indication for systemic steroid use. Patient does have macrocytosis with DRY=443. Counseled to stop drinking. Would benefit from an outpatient referral for Continued intervention Ppx - Lovenox 40mg Code - Full , per discussion with patient Dispo - eventual discharge to home, hopefully later this week Admission and Anticipated Discharge Date Admission Date: November 22, 2022 Subjective Alert and oriented. No acute distress. Appreciate gastroenterology consultation and recommendations. He will undergo paracentesis hopefully later today, November 23. Potassium replacement continues. Spironolactone dosage uptitrated today, November 23. Will monitor serial lab studies Review of Systems Review of Systems: Constitutional-no fever or chills ENT-no blurred vision, no double vision, no epistaxis, no sore throat Respiratory-no cough, no wheezing, no shortness of breath Cardiac-no palpitations, no chest pain, no syncope GI-no nausea, vomiting, diarrhea, melena, hematochezia -no urinary retention, no urinary incontinence, no dysuria, no hematuria Musculoskeletal-no joint pain, no muscle tenderness Skin-no bruising, no rashes, no pruritus Neuro-no isolated weakness, no paresthesia, no weakness Psych-no depression, no anxiety Physical Exam Physical Exam: General-alert and oriented x3, no fevers, no chills HEENT-head atraumatic and normocephalic, pupils equal and reactive to light, extraocular muscles intact Neck-no lymphadenopathy or thyromegaly, trachea midline Chest-clear to auscultation percussion. No rales wheezing or rhonchi Cardiac-regular rate and rhythm, normal S1 and S2 Abdomen-normal bowel sounds, distended and firm with ascites. No focal tenderness Extremities-no cyanosis, clubbing, or edema Neuro-cranial nerves II through XII intact, motor and sensory function within normal limits, strength symmetrical , no focal deficits Psych-normal affect, normal mood Results & Data Results & Data ([facility]) Vital Signs (Past 12 Hours) Vital Signs Temp Pulse Resp BP Pulse Ox O2 Del Method 11/23/22 12:01 37.1 C 92 H 16 130/82 95 Room Air 11/23/22 08:39 97 H 98 Room Air 11/23/22 07:49 36.8 C 98 H 16 135/87 92 Room Air 11/23/22 03:33 36.9 C 98 H 16 114/75 98 Room Air Laboratory Results 11/23/22 05:56 11/23/22 05:56 PG Care Time/CCT Total # of Minutes Spent Total Time Spent with Patient: Total time spent is greater than 50% in coordination of care (as documented) at patient's floor/unit and/or counseling patient: Coding Level of Care Code 91687 SUB INP/OBS CARE 3/50MIN Diagnoses Alcoholic cirrhosis K70.31 Ascites presence: with ascites Abdominal ascites K70.31 Ascites type: due to alcoholic cirrhosis Anxiety F41.9 Alcohol use Z78.9 (1) Alcoholic cirrhosis Ascites presence: with ascites Qualified Code(s): K70.31 - Alcoholic cirrhosis of liver with ascites (2) Abdominal ascites Ascites type: due to alcoholic cirrhosis Qualified Code(s): K70.31 - Alcoholic cirrhosis of liver with ascites
[2022-11-23 15:57] LABS: Albumin Peritoneal Fluid < 1.5 gm/dl; Total Protein Peritoneal Fluid < 3.0 gm/dl
[2022-11-23] MEDS: ENOXAPARIN INJ 40 MG/0.4 ML SYR SQ SCH (16:44)
[2022-11-23 17:07] LABS: Appearance Peritoneal Fluid Clear; Color Peritoneal Fluid Straw; Lymphocytes, Fluid 35 %; Mono,Macrophage,Mesothelial 64 %; Neutrophils, Fluid 1 %; RBC Peritoneal Fluid Auto < 2000 /uL; WBC Peritoneal Fluid Auto 130 /ul (0-300)
[2022-11-24 06:53] LABS: INR 1.5 (0.9-1.1); Prothrombin Time 15.4 Seconds (9.0-12.0)
[2022-11-24 07:17] LABS: Albumin Globulin Ratio 0.5 (0.9-2); Albumin Level 2.5 gm/dl (3.4-5.0); BUN Creatinine Ratio 7.7 (10-20); Bilirubin,Total 4.1 mg/dl (0.2-1.0); Calcium 7.8 mg/dl (8.5-10.1); Creatinine Clr Calc Pharmacy 150.9 ml/min; Est GFR (African American) 124.6 ml/min; Est GFR (Non-African American) 107.5 ml/min; Globulin 4.6 gm/dl (2.5-4.0); Potassium 3.7 mmol/L (3.5-5.1); Total Protein 7.1 gm/dl (6.0-8.3)
[2022-11-24] MEDS: THIAMINE HCL 100 MG in SYRINGE 9 ML IV SCH (07:45)
[2022-11-24] MEDS: FOLIC ACID 1 MG TAB PO SCH (07:45)
[2022-11-24] MEDS: busPIRone 7.5 MG TAB PO SCH (07:45)
[2022-11-24] MEDS: SPIRONOLACTONE 25 MG TAB PO SCH (07:46)
[2022-11-24 11:52] LABS: HBSAG NON-REACTIVE (NON-REACTIVE); Hepatitis A Antibody IgM NON-REACTIVE (NON-REACTIVE); Hepatitis B Core Antibody IgM NON-REACTIVE (NON-REACTIVE)
== END 2022-11-24 14:00 | disposition left against medical advice (07) | DRG 434 ==
LOC: ED 09:34 → EDINP 11:49 → SUATTDRO 11:49 → 3N 21:55

== ENCOUNTER 2023-06-14 18:36 | Inpatient (IN) ==
[2023-06-14 21:18] LABS: Appearance Urine Clear (Clear); Bilirubin Urine Negative (Negative); Blood Urine Negative (Negative); Color Urine Dark Yellow; Glucose Urine UA Negative (Negative); Ketones Urine Negative (Negative); Leukocyte Esterase Urine Negative (Negative); Nitrite Urine Negative (Negative); Protein Urine Negative (Negative); Specific Gravity Urine 1.016 (1.000-1.030); Urobilinogen Urine Negative (Negative)
--- NOTE | 2023-06-14 21:27 | Emergency Department Note ---
Impression & Plan Acute hyponatremia, Peritoneal fluid, Open wound of umbilical region with complication ED Provider Note Name: IGOR ALBERTO Age: 48 Sex: M Arrives Via: Walk-In Informant: Patient ED Provider: Yamil Brown MD Chief Complaint: Draining umbilicus Impression: As per impressions above Medical Decision Making: Pleasant 48-year-old male alcoholic sober who has cirrhosis of the liver and a meld of about 21. Patient arrives as he notes home full hernia developed an ulcer about 3 weeks ago and then this evening it ruptured leaking large amounts of peritoneal fluid. On examination he has a soft nontender abdomen. His umbilical hernia is essentially deflated with a 1.5 cm ulcer over the middle portion. It is granulated without erythema. There is some serous clear fluid leaking from it. There is no bowel palpated within the hernia sac. He has no tenderness to palpation or evidence of peritonitis. He is afebrile. Patient notes that he has had some worsening labs as an outpatient may be a bit more fatigue and tired. Patient's labs are noted to have significant hyponatremia from his baseline. Suspect this is liver related. He was given initial 500 mL IV normal saline bolus as he does run a bit low to begin with. His white blood cell count is mildly elevated. Without fever or tenderness palpation or other infectious findings I would hold off on any antibiotics at this time. There is no way to place a suture in this umbilical wound that I can see. In the setting of acute hyponatremia will have to come in for further work-up and management. Hospitalist was consulted. Due to high volumes within the ER there was quite some time until patient was initially seen as well as until he was hospitalized. I will note that after discussion with hospitalist he requested [facility] surge to evaluate him. Their initial evaluation felt that just allowing this to continue to drain possibly with some antibiotic ointment would be reasonable. No indication for suturing either at this time. Prior Medical Record and Triage/Nursing Notes reviewed by Me Extensive external chart reviewed including previous hospitalization records and discharge summaries Differentials:Liver failure, electrolyte imbalance, infection, SBP, fluid overl oad, many other pathologies considered Vital Signs: reviewed and remarkable for no significant abnormalities Interventions: Normal saline bolus 500 mL IV Labs:Reviewed and remarkable for Acute new hyponatremia, mild white count elevation, bilirubin 3.9 which patient notes is actually mildly increased from outpatient labs amongst many other labs reviewed EKG:Normal sinus rhythm 97 bpm no ectopy no ischemia. QTc 424. There are no previous EKGs for comparison. This is as per my interpretation. The indication was electrolyte imbalance Cardiac/Tele Monitoring: Cardiac Monitoring: An Order was placed for continuous cardiac monitoring. The monitor shows a rate of 90 with a normal sinus rhythm. Consults:Dr. China Carvajal [place] hospitalist Willie Joseph PA-C of general surgery. Plan: Disposition:Hospitalization. Condition: Good History of Present Illness:47-year-old male arrives for evaluation of leaking from umbilicus. Patient notes a history of cirrhosis with every 2-week paracentesis. At 4 PM today he noted leaking from his bellybutton. Large amount of serous fluid and his umbilical hernia and abdomen have gone down significantly in size. He notes he has had an ulcer over his umbilical hernia for the last 3 weeks. It is scabbed over and has been leaking since this afternoon now. He denies any fevers, chills, abdominal pain, back pain, chest p ain, shortness of breath or any other concerning signs or symptoms. He has never had anything like this before. He is not currently on any antibiotics. He denies any recent alcohol use. He states he otherwise feels quite well. Past History:See Below Home Medications:See Below Allergies:nkda Vitals:Blood Pressure: 125/74, Pulse 87, RR 12, T 36.3C, O2 99% on RA Physical Exam: GENERAL: Patient is well appearing and in no acute distress. EYES: mild jaundice, unremarkable pupils. RESPIRATORY: No dyspnea. Clear to auscultation and equal bilaterally. No wheeze, no rhonchi. CARDIOVASCULAR: Regular rate and rhythm.No murmurs, rubs, gallops appreciated. GASTROINTESTINAL: Abdomen soft, non-tender, no peritonitis.large deflated umbilical hernia with 1.5 cm ulceration/scab in middle that drains serous fluid, non tender, no bowel palpated in hernia sac. EXTREMITIES: Normal motion all extremities, no cyanosis, no edema. NEUROLOGIC: Alert and oriented, no focal neurologic deficits appreciated SKIN: No rash, no jaundice, no diaphoresis. PSYCH: Appropriate GCS: 15 ED Course: Times/Reassessments: Stable breathing comfortably and agreeable to hospitalization for abnormal electrolytes Yamil Brown MD Past Med/Surg History Medical History Abdominal ascites Abdominal hernia Alcohol abuse Alcoholic cirrhosis Anxiety Babesiosis (~09/2020) Elevated blood pressure reading in office without diagnosis of hypertension Elevated liver enzymes Fatigue Generalized body aches Gout hx of Hepatosplenomegaly History of abdominal paracentesis x3--11/23/22, 11/28/22, 12/21/22 Tick bite hx of Surgical History No pertinent past surgical history Family History Mother Anxiety Father Heart disease Hypertension Sister Anxiety Other No family history of adverse response to anesthesia Denies family history of Ovarian cancer Prostate cancer Myocardial infarction Breast cancer Colorectal cancer Social History Smoking Status: Never smoker Second Hand Exposure: No; Do You Dip or Chew Tobacco: No; Hx Substance Use: No Preferred Language: Slovak Communication Ability: Effective Visual Impairment: No Limitations Hearing Ability: Normal Mobile Phone Salesperson Required: No Beliefs That Will Affect Care: None Current Living Situation: Family Current Living Situation Comment: self current occupational status: employed 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 Feels Safe at Home: Yes Childhood Exposure to Second-Hand Smoke: No caffeine: Yes (diet pepsi) during the past year weight has: remained stable Dental Care, Regularly: No Physical Activity Frequency: 1-2 Times per Week Seatbelt Use: always Sunscreen Use: Yes Assistive Devices: None Allergies Allergies Allergy/AdvReac Type Severity Reaction Status Date / Time No Known Allergies Allergy Verified 06/04/23 13:14 Home Meds Home Medications Medication Instructions Recorded Confirmed bumetanide 2 mg tablet 2 mg PO BID 06/04/23 06/14/23 mupirocin 2 % topical ointment 1 applic topical BID PRN redness 06/04/2305/19 spironolactone 100 mg tablet 100 mg PO QAM 06/14/23 06/14/23 Previous Rx's Medication Instructions Recorded buspirone 7.5 mg tablet 7.5 mg PO BID PRN Anxiety #180 tabs 04/27/23 Results & Data (ED) Vital Signs Vital Signs - 24 hr 06/14/23 18:54 06/14/23 20:30 06/14/23 20:34 Temperature 36.3 C L Temperature Source Temporal Artery Scan Pulse Rate 102 H 87 Pulse Rate [Apical] 88 Pulse Rate from SpO2 Sensor Pulse Rhythm [Apical] Regular Pulse Strength [Apical] Normal Respiratory Rate 18 12 Respiratory Effort / Characteristics Non-Labored Spontaneous Non-Labored Respiratory Depth Normal Normal Blood Pressure 108/73 Blood Pressure [Right Arm] 125/74 Blood Pressure Mean 84 Blood Pressure Mean [Right Arm] 91 Pulse Oximetry 100 99 Oxygen Delivery Method Room Air Sepsis Recent Fever Within 48 Hours No Sepsis New/Unexplained Change in Mental Status No Sepsis Action Taken by Nursing No Action Required 06/14/23 20:33 06/14/23 21:00 06/14/23 21:30 Temperature Temperature Source Pulse Rate 92 H 87 88 Pulse Rate [Apical] Pulse Rate from SpO2 Sensor 92 H 87 89 Pulse Rhythm [Apical] Pulse Strength [Apical] Respiratory Rate 18 18 15 Respiratory Effort / Characteristics Respiratory Depth Blood Pressure 112/68 95/66 L Blood Pressure [Right Arm] Blood Pressure Mean 82 75 Blood Pressure Mean [Right Arm] Pulse Oximetry 100 100 100 Oxygen Delivery Method Sepsis Recent Fever Within 48 Hours Sepsis New/Unexplained Change in Mental Status Sepsis Action Taken by Nursing 06/14/23 22:00 06/14/23 22:35 06/14/23 22:30 Temperature Temperature Source Pulse Rate 90 88 Pulse Rate [Apical] Pulse Rate from SpO2 Sensor Pulse Rhythm [Apical] Pulse Strength [Apical] Respiratory Rate 13 15 Respiratory Effort / Characteristics Respiratory Depth Blood Pressure 118/65 112/66 Blood Pressure [Right Arm] Blood Pressure Mean 82 81 Blood Pressure Mean [Right Arm] Pulse Oximetry 95 100 100 Oxygen Delivery Method Room Air Room Air Room Air Sepsis Recent Fever Within 48 Hours Sepsis New/Unexplained Change in Mental Status Sepsis Action Taken by Nursing 06/14/23 23:00 06/14/23 23:30 06/15/23 00:39 Temperature Temperature Source Pulse Rate 87 85 88 Pulse Rate [Apical] Pulse Rate from SpO2 Sensor Pulse Rhythm [Apical] Pulse Strength [Apical] Respiratory Rate 18 15 Respiratory Effort / Characteristics Respiratory Depth Blood Pressure 109/70 109/66 Blood Pressure [Right Arm] Blood Pressure Mean 83 80 Blood Pressure Mean [Right Arm] Pulse Oximetry 100 100 Oxygen Delivery Method Room Air Nasal Cannula Sepsis Recent Fever Within 48 Hours Sepsis New/Unexplained Change in Mental Status Sepsis Action Taken by Nursing 06/15/23 00:00 06/15/23 00:30 Temperature Temperature Source Pulse Rate 85 86 Pulse Rate [Apical] Pulse Rate from SpO2 Sensor Pulse Rhythm [Apical] Pulse Strength [Apical] Respiratory Rate 16 21 Respiratory Effort / Characteristics Respiratory Depth Blood Pressure 107/65 104/67 Blood Pressure [Right Arm] Blood Pressure Mean 79 79 Blood Pressure Mean [Right Arm] Pulse Oximetry 100 98 Oxygen Delivery Method Room Air Room Air Sepsis Recent Fever Within 48 Hours Sepsis New/Unexplained Change in Mental Status Sepsis Action Taken by Nursing Laboratory Data 06/14/23 21:18 06/14/23 21:18 Lab Results 06/14/23 06/14/23 06/14/23 Range/Units 20:30 20:30 20:30 WBC (4.8-10.8) K/ul RBC (4.70-6.10) M/uL Hgb (14.0-18.0) g/dl Hct (42.0-52.0) % MCV (80.0-100.0) fL MCH (25.0-34.0) pg MCHC (32.0-36.0) g/dL RDW Std Deviation (36.4-46.3) fL RDW Coeff of Coby (11.5-14.5) % Plt Count (130-400) K/uL MPV (9.4-12.4) fL Immature Gran % (Auto) % Neut % (Auto) % Lymph % (Auto) % Clinch % (Auto) % Eos % (Auto) % Baso % (Auto) % Neut # (Auto) (1.40-6.50) K/uL Lymph # (Auto) (1.2-3.4) K/uL Clinch # (Auto) (0.11-0.59) K/uL Eos # (Auto) (0-0.50) K/uL Baso # (Auto) (0-0.2) K/uL Immature Gran # (Auto) (0.01-0.20) K/uL PT (9.0-12.0) Seconds INR (0.9-1.1) APTT (21.0-31.0) Seconds PTT Ratio Sodium (136-145) mmol/L Potassium (3.5-5.1) mmol/L Chloride (98-107) mmol/L Carbon Dioxide (21-32) mmol/L Anion Gap (3-11) BUN (6-23) mg/dl Creatinine (0.6-1.4) mg/dl Est Cr Clr Drug Dosing ml/min Est GFR ( Amer) ml/min Est GFR (Non-Af Amer) ml/min BUN/Creatinine Ratio (10-20) Glucose (70-99(Fasting)) mg/dl Osmolality (280-300) mOsm/kg Calcium (8.6-10.3) mg/dl Total Bilirubin (0.2-1.0) mg/dl AST (13-39) U/L ALT (7-52) U/L Alkaline Phosphatase (34-104) U/L Total Protein (6.0-8.3) gm/dl Albumin (3.4-5.0) gm/dl Globulin (2.5-4.0) gm/dl Albumin/Globulin Ratio (0.9-2) Urine Color Dark Yellow Urine Appearance Clear (Clear) Urine pH 5.0 (4.5-7.5) Ur Specific [place] 1.016 (1.000-1.030) Urine Protein Negative (Negative) Urine Glucose (UA) Negative (Negative) Urine Ketones Negative (Negative) Urine Blood Negative (Negative) Urine Nitrite Negative (Negative) Urine Bilirubin Negative (Negative) Urine Urobilinogen Negative (Negative) Ur Leukocyte Esterase Negative (Negative) Urine Osmolality 472 L (500-800) mOsm/kg Ur Random Sodium < 10 mmol/L 06/14/23 06/14/23 06/14/23 Range/Units 21:18 21:18 21:18 WBC 14.46 H (4.8-10.8) K/ul RBC 3.51 L (4.70-6.10) M/uL Hgb 12.8 L (14.0-18.0) g/dl Hct 33.8 L (42.0-52.0) % MCV 96.3 (80.0-100.0) fL MCH 36.5 H (25.0-34.0) pg MCHC 37.9 H (32.0-36.0) g/dL RDW Std Deviation 46.3 (36.4-46.3) fL RDW Coeff of Coby 13.2 (11.5-14.5) % Plt Count 240 (130-400) K/uL MPV 8.1 L (9.4-12.4) fL Immature Gran % (Auto) 1.0 % Neut % (Auto) 76.0 % Lymph % (Auto) 5.0 % Clinch % (Auto) 16.9 % Eos % (Auto) 0.7 % Baso % (Auto) 0.4 % Neut # (Auto) 10.99 H (1.40-6.50) K/uL Lymph # (Auto) 0.72 L (1.2-3.4) K/uL Clinch # (Auto) 2.44 H (0.11-0.59) K/uL Eos # (Auto) 0.10 (0-0.50) K/uL Baso # (Auto) 0.06 (0-0.2) K/uL Immature Gran # (Auto) 0.15 (0.01-0.20) K/uL PT 13.5 H (9.0-12.0) Seconds INR 1.2 H (0.9-1.1) APTT 31.0 (21.0-31.0) Seconds PTT Ratio 1.1 Sodium 118 L* (136-145) mmol/L Potassium 5.0 (3.5-5.1) mmol/L Chloride 87 L (98-107) mmol/L Carbon Dioxide 24 (21-32) mmol/L Anion Gap 7 (3-11) BUN 28 H (6-23) mg/dl Creatinine 1.22 (0.6-1.4) mg/dl Est Cr Clr Drug Dosing 78.9 ml/min Est GFR ( Amer) 80.8 ml/min Est GFR (Non-Af Amer) 69.7 ml/min BUN/Creatinine Ratio 23.0 H (10-20) Glucose 113 H (70-99(Fasting)) mg/dl Osmolality (280-300) mOsm/kg Calcium 8.6 (8.6-10.3) mg/dl Total Bilirubin 3.2 H (0.2-1.0) mg/dl AST 32 (13-39) U/L ALT 19 (7-52) U/L Alkaline Phosphatase 145 H (34-104) U/L Total Protein 6.7 (6.0-8.3) gm/dl Albumin 3.2 L (3.4-5.0) gm/dl Globulin 3.5 (2.5-4.0) gm/dl Albumin/Globulin Ratio 0.9 (0.9-2) Urine Color Urine Appearance (Clear) Urine pH (4.5-7.5) Ur Specific [place] (1.000-1.030) Urine Protein (Negative) Urine Glucose (UA) (Negative) Urine Ketones (Negative) Urine Blood (Negative) Urine Nitrite (Negative) Urine Bilirubin (Negative) Urine Urobilinogen (Negative) Ur Leukocyte Esterase (Negative) Urine Osmolality (500-800) mOsm/kg Ur Random Sodium mmol/L 06/14/23 Range/Units 21:18 WBC (4.8-10.8) K/ul RBC (4.70-6.10) M/uL Hgb (14.0-18.0) g/dl Hct (42.0-52.0) % MCV (80.0-100.0) fL MCH (25.0-34.0) pg MCHC (32.0-36.0) g/dL RDW Std Deviation (36.4-46.3) fL RDW Coeff of Coby (11.5-14.5) % Plt Count (130-400) K/uL MPV (9.4-12.4) fL Immature Gran % (Auto) % Neut % (Auto) % Lymph % (Auto) % Clinch % (Auto) % Eos % (Auto) % Baso % (Auto) % Neut # (Auto) (1.40-6.50) K/uL Lymph # (Auto) (1.2-3.4) K/uL Clinch # (Auto) (0.11-0.59) K/uL Eos # (Auto) (0-0.50) K/uL Baso # (Auto) (0-0.2) K/uL Immature Gran # (Auto) (0.01-0.20) K/uL PT (9.0-12.0) Seconds INR (0.9-1.1) APTT (21.0-31.0) Seconds PTT Ratio Sodium (136-145) mmol/L Potassium (3.5-5.1) mmol/L Chloride (98-107) mmol/L Carbon Dioxide (21-32) mmol/L Anion Gap (3-11) BUN (6-23) mg/dl Creatinine (0.6-1.4) mg/dl Est Cr Clr Drug Dosing ml/min Est GFR ( Amer) ml/min Est GFR (Non-Af Amer) ml/min BUN/Creatinine Ratio (10-20) Glucose (70-99(Fasting)) mg/dl Osmolality 259 L (280-300) mOsm/kg Calcium (8.6-10.3) mg/dl Total Bilirubin (0.2-1.0) mg/dl AST (13-39) U/L ALT (7-52) U/L Alkaline Phosphatase (34-104) U/L Total Protein (6.0-8.3) gm/dl Albumin (3.4-5.0) gm/dl Globulin (2.5-4.0) gm/dl Albumin/Globulin Ratio (0.9-2) Urine Color Urine Appearance (Clear) Urine pH (4.5-7.5) Ur Specific [place] (1.000-1.030) Urine Protein (Negative) Urine Glucose (UA) (Negative) Urine Ketones (Negative) Urine Blood (Negative) Urine Nitrite (Negative) Urine Bilirubin (Negative) Urine Urobilinogen (Negative) Ur Leukocyte Esterase (Negative) Urine Osmolality (500-800) mOsm/kg Ur Random Sodium mmol/L Administered Medications Discontinued Medications Sodium Chloride (Nss 1000ml) 500 mls @ 999 mls/hr IV .Q31M ONE Stop: 06/14/23 22:51 Last Infusion: 06/14/23 23:23 Dose: 0 mls/hr Documented By: Admin: 06/14/23 22:27 Dose: 999 mls/hr Documented By: COOPER Discharge Plan Visit Data Chief Complaint: Bleeding Stated Complaint: RUPTURED, LEAKING EMBILICAL HERNIA ED Provider: Yamil Brown Discharge Problem: Acute hyponatremia, Peritoneal fluid, Open wound of umbilical region with complication Forms Stand Alone Forms: [employer] Prescriptions Prescriptions: No Action buspirone 7.5 mg tablet 7.5 mg PO BID PRN (Reason: Anxiety) Qty: 180 2RF mupirocin 2 % ointment 1 applic topical BID PRN (Reason: redness) bumetanide 2 mg tablet 2 mg PO BID spironolactone 100 mg tablet 100 mg PO QAM Referrals Referrals: Mohsen Laboy CRNP [Primary Care Provider] -
[2023-06-14 21:37] LABS: Basophils # (auto) 0.06 K/uL (0-0.2); Basophils % (auto) 0.4 %; Eosinophils % (auto) 0.7 %; Hematocrit (blood only) 33.8 % (42.0-52.0); Hemoglobin 12.8 g/dl (14.0-18.0); Immature Granulocytes # (auto) 0.15 K/uL (0.01-0.20); Lymphocytes # (auto) 0.72 K/uL (1.2-3.4); Mean Corpuscular Hemoglobin 36.5 pg (25.0-34.0); Mean Corpuscular Hgb Conc 37.9 g/dL (32.0-36.0); Mean Corpuscular Volume 96.3 fL (80.0-100.0); Mean Platelet Volume 8.1 fL (9.4-12.4); Monocytes # (auto) 2.44 K/uL (0.11-0.59); Monocytes % (auto) 16.9 %; Neutrophils # (auto) 10.99 K/uL (1.40-6.50); Platelet Count 240 K/uL (130-400); RDW Coefficient of Variation 13.2 % (11.5-14.5); RDW Standard Deviation 46.3 fL (36.4-46.3); Red Blood Count 3.51 M/uL (4.70-6.10); White Blood Count 14.46 K/ul (4.8-10.8)
[2023-06-14 22:12] LABS: Albumin Globulin Ratio 0.9 (0.9-2); Albumin Level 3.2 gm/dl (3.4-5.0); Bilirubin,Total 3.2 mg/dl (0.2-1.0); Calcium 8.6 mg/dl (8.6-10.3); Creatinine Clr Calc Pharmacy 78.9 ml/min; Est GFR (African American) 80.8 ml/min; Est GFR (Non-African American) 69.7 ml/min; Globulin 3.5 gm/dl (2.5-4.0); Total Protein 6.7 gm/dl (6.0-8.3)
[2023-06-14] MEDS ORDERED: SODIUM CHLORIDE 0.9% 1000ML 500 ML IV ONE (22:21)
[2023-06-14 22:50] LABS: INR 1.2 (0.9-1.1); Partial Thromboplastin Ratio 1.1; Prothrombin Time 13.5 Seconds (9.0-12.0)
--- NOTE | 2023-06-15 00:50 | Surgery Consultation ---
Date of Consultation June 15, 2023 Assessment & Plan (1) Abdominal hernia: I discussed with the treating emergency room physician and due to the patient's hyponatremia he is being admitted on the hospitalist service for further management of this condition. Concerning the patient's umbilical hernia I feel clinical monitoring is all that needs to be employed at this time. The patient has no pain in the am umbilical hernia and it is no longer draining any fluid. There are no signs of an acute abdomen in this patient. As noted he is afebrile and hemodynamically stable. The treating emergency room physician has noted that he is going to place some Bactroban ointment on it which I think is acceptable. At the present time I do not see any areas that would be amendable to placing a suture to prevent further fluid from leaking. Therefore, we will continue to monitor while the patient is in the hospital with further recommendations based on his clinical course as it unfolds. Remainder of plan as directed by the primary service Supervising Physician Co-Signing Physician Notes Patient seen and examined, labs reviewed, agree with above. 48-year-old male with liver cirrhosis and refractory ascites requiring regular paracentesis and known umbilical hernia was admitted for hyponatremia. Over the past few days he has had intermittent leaking from his umbilical hernia. He was seen by Dr. Dahl at [facility] a few days ago who recommended evaluation at a tertiary center. On exam he is afebrile with stable vitals. His abdomen is moderately distended with a fluid wave. He has protuberant umbilical hernia that mostly contains ascites. There is a small necrotic area with a small amount of weeping around it. There is not appear to be a distinct opening. At this point would recommend local wound care. Strong consideration should be made for repair of the hernia before complication arises. Given the degree of his cirrhosis and the possibility that he will be placed on the transplant list in the near future along with his refractory ascites, and the known high morbidity mortality risk associated with surgeries involving advanced cirrhosis, we would recommend evaluation at a tertiary center as an outpatient. If his symptoms escalate, then he may need transfer while inpatient. Surgery will follow peripherally, call with questions or concerns. History of Present Illness Reason for Consultation: Umbilical hernia History of Present Illness This is a 48-year-old male with a history of cirrhosis. Patient notes that his underlying cirrhosis is secondary to previous history of alcohol use along with fatty liver. The patient notes that he follows with [facility] hepatology and he is scheduled for evaluation by a transplant surgeon next month. Patient notes that he has had issues with ongoing development of ascites and he undergoes routine paracentesis. His most recent paracentesis was on 06/10/2023 only 4 days ago. He said at this time the patient had 9 L of serous ascites drained. The patient reports that he does have a history of an umbilical hernia. He says t hat the umbilical hernia in his abdomen become quite tense when he fills up with ascitic fluid and then following his paracentesis his umbilical hernia becomes somewhat flaccid with floppy skin over his umbilicus. The patient notes that he was doing well following his most recent paracentesis however on the evening of 06/14/2023 the patient noted he had some fluid leaking around his umbilicus. He said he inspected his umbilicus and he had a small hole near his umbilicus/umbilical hernia that was draining ascitic fluid. He could not ascertain exactly how much fluid had drained but he presented to the emergency department for this problem. We have been asked to evaluate him for this. The patient specifically denies any pain from his umbilicus or hernia. He has not had any fevers, shakes, or chills. He denies this draining any pus. By the time of my arrival to the bedside a scab had formed over his umbilicus and there is no longer any fluid draining. Since arrival to the hospital the patient has had labs which I reviewed. White blood cell count is noted to be 14.4. Hemoglobin and hematocrit 12.8 and 33.8. Platelet count is within normal range. Chemistry profile showed sodium is 118 with a normal potassium. BUN was elevated at 28 with a normal creatinine. His INR is 1.2. Urinalysis was not indicative of infection. At the time of my interview the patient was resting comfortably in bed and was in no distress. Allergies Allergy/AdvReac Type Severity Reaction Status Date / Time No Known Allergies Allergy Verified 06/04/23 13:14 Home Medications Medication Instructions Recorded Confirmed Type buspirone 7.5 mg tablet 7.5 mg PO BID PRN Anxiety #180 tabs 03/14/23 06/14/23 Rx bumetanide 2 mg tablet 2 mg PO BID 06/04/23 06/14/23 History mupirocin 2 % topical ointment 1 applic topical BID PRN redness 06/04/23 06/14/23 History spironolactone 100 mg tablet 100 mg PO QAM 06/14/23 06/14/23 History Patient History Medical History Abdominal ascites Abdominal hernia Alcohol abuse Alcoholic cirrhosis Anxiety Babesiosis (~09/2020) Elevated blood pressure reading in office without diagnosis of hypertension Elevated liver enzymes Fatigue Generalized body aches Gout hx of Hepatosplenomegaly History of abdominal paracentesis x3--11/23/22, 11/28/22, 12/21/22 Tick bite hx of Surgical History No pertinent past surgical history Family History Mother Anxiety Father Heart disease Hypertension Sister Anxiety Other No family history of adverse response to anesthesia Denies family history of Ovarian cancer Prostate cancer Myocardial infarction Breast cancer Colorectal cancer Social History Smoking Status: Never smoker Second Hand Exposure: No; Do You Dip or Chew Tobacco: No; Hx Alcohol Use: Yes Alcohol type: beer Hx Substance Use: No Preferred Language: Citizen Of [place] Communication Ability: Effective Visual Impairment: No Limitations Hearing Ability: Normal Line Installation Supervisor Required: No Beliefs That Will Affect Care: None Current Living Situation: Alone Current Living Situation Comment: self current occupational status: employed 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 Other Information That Helps Us Care for You: No Feels Safe at Home: Yes Safety Concerns: Feels Safe At This Time Childhood Exposure to Second-Hand Smoke: No caffeine: Yes (diet pepsi) during the past year weight has: remained stable Dental Care, Regularly: No Physical Activity Frequency: 1-2 Times per Week Seatbelt Use: always Sunscreen Use: Yes Assistive Devices: None Review of Systems Constitutional: no fever and no chills Respiratory: no dyspnea Cardiovascular: no chest pain Gastrointestinal: as per Subjective / HPI; no abdominal pain, no nausea and no vomiting Genitourinary: no dysuria Musculoskeletal: no back pain Integumentary: no rash Neurologic: no localized weakness Physical Exam Constitutional: WD/WN, vitals as above Neck: trachea midline Respiratory: normal respiratory effort; no respiratory distress and no labored breathing Cardiovascular: Rate/Rhythm: regular rate and regular rhythm Gastrointestinal (Abdomen): At the time of my exam patient's abdomen was soft without rigidity or distention. There is no pain with palpation in any area of the patient's abdomen. The patient's umbilicus was examined and the patient did have a noted area where he had findings consistent with an umbilical hernia with flaccid/floppy skin over the umbilicus. There is a scab in the umbilicus itself and there is no fluid draining at the time of my exam. There is a small amount of erythema on the area of flaccid skin. The area was nonpainful to palpation. Musculoskeletal: No calf tenderness Neurologic: moves all extremities Psychiatric: A+Ox3, euthymic affect Results & Data Vital Signs (Past 12 Hours) Vital Signs Temp Pulse Pulse Resp BP BP Pulse Ox 06/15/23 00:39 88 06/14/23 23:30 85 15 109/66 100 06/14/23 23:00 87 18 109/70 100 06/14/23 22:30 88 15 112/66 100 06/14/23 22:35 100 06/14/23 22:00 90 13 118/65 95 06/14/23 21:30 88 15 95/66 L 100 06/14/23 21:00 87 18 112/68 100 06/14/23 20:33 92 H 18 100 06/14/23 20:34 87 06/14/23 20:30 88 12 125/74 99 06/14/23 18:54 36.3 C L 102 H 18 108/73 100 O2 Del Method 06/15/23 00:39 06/14/23 23:30 Nasal Cannula 06/14/23 23:00 Room Air 06/14/23 22:30 Room Air 06/14/23 22:35 Room Air 06/14/23 22:00 Room Air 06/14/23 21:30 06/14/23 21:00 06/14/23 20:33 06/14/23 20:34 06/14/23 20:30 06/14/23 18:54 Room Air PG Care Time/CCT Total # of Minutes Spent Total Time Spent with Patient: Total time spent is greater than 50% in coordination of care (as documented) at patient's floor/unit and/or counseling patient: Coding Level of Care Code 44350 IN/OBS CONSULT LVL 3,45M Diagnoses Abdominal hernia K46.9
--- NOTE | 2023-06-15 01:05 | History & Physical Report ---
Date of Service June 15, 2023 Assessment & Plan (1) Acute hyponatremia: Plan: Asymptomatic Severe Hyponatremia - Sodium 118 on admit consultation In the setting of alcoholic cirrhosis, clinically euvolemic to slightly hypovolemic Urine sodium less than 10, urine osmolality is low. Patient is appropriately retaining sodium and appears solute depleted rather than free fluid overloaded Received 500 cc NSS in the ER. Sodium increased to 119 on recheck. Clinic ally is slightly hypovolemic, has no edema, and patient feels ascites is currently mild/improved and lost 1L of fluid through hernia leakage. Will place on NSS, free fluid restrict and trend BMP every 4 hours BMP every 4 hours, no more than 8 mEq correction per 24 hours. Alcoholic cirrhosis Follows with [facility] hepatology On biweekly paracentesis with up to 10-13 L per drainage Previously followed with infectious disease for babesiosis EGD 12/2022: Portal hypertensive gastropathy, normal esophagus. Every 2 year follow-up recommended. Continue spironolactone Patient appears clinically slightly volume down on assessment, will hold Bumex Abdominal hernia Pending general surgery follow-up at [facility], has an appointment for august. March keep this up Spontaneously had a scab break open and drain serous fluid, also causing a reduction in his ascites General surgery consulted. No areas amenable to suture repair. No antibiotics indicated at this time, recommend clinical observation at this timeS. No evidence of acute abdomen or infection and he remains afebrile. Patient has no abdominal tenderness, no surrounding or overlying erythema at hernia site. White count is slightly increased without fever, and has a negative UA. Follow clinically if any concerns for cellulitis or SBP develop start Rocephin 2 g daily Anxiety Continue BuSpar DVT prophylaxis: SCDs Diet: We will liberalize low-salt to regularly temporarily, fluid restrict CODE STATUS: Full code Disposition: PCU for hyponatremia (2) Peritoneal fluid: (3) Open wound of umbilical region with complication: (4) Hepatosplenomegaly: (5) Alcoholic cirrhosis: History of Present Illness Primary Care Provider: ARIAS Villar Jerry is a 48-year-old male past medical history of leaking umbilical hernia. Patient receives biweekly paracentesis due to cirrhosis, noticed large amount of clear fluid draining from his hernia today with reduction of his abdominal ascites. Has had an ulcer overlying this hernia for several weeks which broke open and leaked day of admission. ~1L of yellow translucent fluid drained. No pain. Last dose of lasix/annamarie 06/14 AM. Low salt diet. No fevers, chills, or sweats. No chest pain or chest pressure No shortness of breath. No cough/sputum production. Endorses some fatigue Denies leg swelling. Legs feel normal for him today Feels dehydrated. Eating and drinking normally last few days. No diarrhea Medical History: Reviewed Medications: Reviewed Surgical History: Reviewed Family history: Reviewed Allergies: Reviewed Social History: Reviewed, denies recent ETOH use. Code Status: Full Code Allergies Allergy/AdvReac Type Severity Reaction Status Date / Time No Known Allergies Allergy Verified 06/04/23 13:14 Home Medications Medication Instructions Recorded Confirmed Type buspirone 7.5 mg tablet 7.5 mg PO BID PRN Anxiety #180 tabs 03/14/23 06/14/23 Rx bumetanide 2 mg tablet 2 mg PO BID 06/04/23 06/14/23 History mupirocin 2 % topical ointment 1 applic topical BID PRN redness 06/04/23 06/14/23 History spironolactone 100 mg tablet 100 mg PO QAM 06/14/23 06/14/23 History Past Med/Surg History Medical History Abdominal ascites Abdominal hernia Alcohol abuse Alcoholic cirrhosis Anxiety Babesiosis (~09/2020) Elevated blood pressure reading in office without diagnosis of hypertension Elevated liver enzymes Fatigue Generalized body aches Gout hx of Hepatosplenomegaly History of abdominal paracentesis x3--11/23/22, 11/28/22, 12/21/22 Tick bite hx of Surgical History No pertinent past surgical history Family History Mother Anxiety Father Heart disease Hypertension Sister Anxiety Other No family history of adverse response to anesthesia Denies family history of Ovarian cancer Prostate cancer Myocardial infarction Breast cancer Colorectal cancer Social History Smoking Status: Never smoker Second Hand Exposure: No; Do You Dip or Chew Tobacco: No; Hx Substance Use: No Preferred Language: Greek Communication Ability: Effective Visual Impairment: No Limitations Hearing Ability: Normal Lactation Coordinator Required: No Beliefs That Will Affect Care: None Current Living Situation: Family Current Living Situation Comment: self current occupational status: employed 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 NAD. Cooperative. HEENT: Atraumatic, normocephalic. Vision/hearing grossly intact Pulm: CTAB A&P. -wheezes, -rales, -rhonchi. Symmetrical chest rise. No increased work of breathing. No respiratory distress. Cardiac: RRR, -mrg. Radial pulses intact and symmetrical. Abdominal: Soft, nontender. Umbilical hernia with slight hyperpigmentation but no surrounding or overlying erythema. No rebound tenderness Extremities: Trace ankle edema, legs at baseline per patient. Sensation soft touch intact in hands and feet bilaterally. Children'S Librarian strength 5/5 bilaterally, ankle dorsiflexion/plantarflexion intact and symmetrical Results & Data Results & Data Vital Signs (Past 12 Hours) Vital Signs Temp Pulse Pulse Resp BP BP Pulse Ox 06/15/23 00:30 86 21 104/67 98 06/15/23 00:00 85 16 107/65 100 06/15/23 00:39 88 06/14/23 23:30 85 15 109/66 100 06/14/23 23:00 87 18 109/70 100 06/14/23 22:30 88 15 112/66 100 06/14/23 22:35 100 06/14/23 22:00 90 13 118/65 95 06/14/23 21:30 88 15 95/66 L 100 06/14/23 21:00 87 18 112/68 100 06/14/23 20:33 92 H 18 100 06/14/23 20:34 87 06/14/23 20:30 88 12 125/74 99 06/14/23 18:54 36.3 C L 102 H 18 108/73 100 O2 Del Method 06/15/23 00:30 Room Air 06/15/23 00:00 Room Air 06/15/23 00:39 06/14/23 23:30 Nasal Cannula 06/14/23 23:00 Room Air 06/14/23 22:30 Room Air 06/14/23 22:35 Room Air 06/14/23 22:00 Room Air 06/14/23 21:30 06/14/23 21:00 06/14/23 20:33 06/14/23 20:34 06/14/23 20:30 06/14/23 18:54 Room Air PG Care Time/CCT Total # of Minutes Spent Total Time Spent with Patient: Total time spent is greater than 50% in coordination of care (as documented) at patient's floor/unit and/or counseling patient: Coding Level of Care Code 99881 INT INP/OBS CARE 375MIN Diagnoses Acute hyponatremia E87.1 Peritoneal fluid K70.31 Ascites type: due to alcoholic cirrhosis Open wound of umbilical region with complication S31.105A Encounter type: initial encounter Hepatosplenomegaly R16.2 Alcoholic cirrhosis K70.31 Ascites presence: with ascites (2) Peritoneal fluid Ascites type: due to alcoholic cirrhosis Qualified Code(s): K70.31 - Alcoholic cirrhosis of liver with ascites (3) Open wound of umbilical region with complication Encounter type: initial encounter Qualified Code(s): S31.105A - Unspecified open wound of abdominal wall, periumbilic region without penetration into peritoneal cavity, initial encounter (5) Alcoholic cirrhosis Ascites presence: with ascites Qualified Code(s): K70.31 - Alcoholic cirrhosis of liver with ascites
[2023-06-15 01:10] LABS: BUN Creatinine Ratio 25.2 (10-20); Calcium 7.9 mg/dl (8.6-10.3); Creatinine Clr Calc Pharmacy 89.9 ml/min; Est GFR (African American) 94.6 ml/min; Est GFR (Non-African American) 81.7 ml/min; Potassium 4.7 mmol/L (3.5-5.1)
[2023-06-15] MEDS ORDERED: SODIUM CHLORIDE 0.9% 1000ML 1,000 ML IV SCH (02:52)
[2023-06-15] MEDS: busPIRone 7.5 MG TAB PO PRN ×2 (07:13→21:09)
[2023-06-15 07:31] LABS: Calcium 7.9 mg/dl (8.6-10.3); Creatinine Clr Calc Pharmacy 100.2 ml/min; Est GFR (African American) 107.9 ml/min; Est GFR (Non-African American) 93.1 ml/min; Potassium 4.3 mmol/L (3.5-5.1)
[2023-06-15] MEDS: SPIRONOLACTONE 100 MG TAB PO SCH (09:27)
--- NOTE | 2023-06-15 10:41 | Electrocardiogram Report ---
Test Reason : Blood Pressure : / mmHG Vent. Rate : 097 BPM Atrial Rate : 097 BPM P-R Int : 206 ms QRS Dur : 076 ms QT Int : 334 ms P-R-T Axes : 043 001 038 degrees QTc Int : 424 ms Normal sinus rhythm Low voltage QRS Septal infarct , age undetermined vs lead placement Abnormal ECG No previous ECGs available Confirmed by Lalo Alberto ([id number]) on 06/15/2023 10:40:50 AM Referred By: REFERRED SELF Confirmed By:Lalo Alberto
--- NOTE | 2023-06-15 16:43 | Hospitalist Progress Note ---
Date of Service June 15, 2023 Assessment & Plan (1) Acute hyponatremia: Plan: Serum osmolarity is low. Fluid restriction ordered. Currently asymptomatic. Serial labs (2) Open wound of umbilical region with complication: Plan: Ascitic peritoneal fluid is leaking through the umbilicus. General surgery consultation and recommendations appreciated. No surgical intervention at this time (3) Hepatosplenomegaly: Plan: Combined TREVINO and alcoholic cirrhosis. (4) Alcoholic cirrhosis: Plan: Alcohol intake cessation highly recommended Plan Hopefully home tomorrow, June 16 Admission and Anticipated Discharge Date Admission Date: June 15, 2023 Subjective Alert and oriented. No distress. Surgery consultation noted. No intervention at this time. Hyperosmolar hyponatremia present on admission but he is asymptomatic. Fluid restriction has been ordered. This should continue to improve slowly. Hopefully he can go home tomorrow, June 16 Review of Systems Review of Systems: Constitutional-no fever or chills ENT-no blurred vision, no double vision, no epistaxis, no sore throat Respiratory-no cough, no wheezing, no shortness of breath Cardiac-no palpitations, no chest pain, no syncope GI-no nausea, vomiting, diarrhea, melena, hematochezia -no urinary retention, no urinary incontinence, no dysuria, no hematuria Musculoskeletal-no joint pain, no muscle tenderness Skin-no bruising, no rashes, no pruritus Neuro-no isolated weakness, no paresthesia, no weakness Psych-no depression, no anxiety Physical Exam Physical Exam: General-alert and oriented x3, no fevers, no chills HEENT-head atraumatic and normocephalic, pupils equal and reactive to light, extraocular muscles intact Neck-no lymphadenopathy or thyromegaly, trachea midline Chest-clear to auscultation percussion. No rales wheezing or rhonchi Cardiac-regular rate and rhythm, normal S1 and S2, no murmurs Abdomen-normal bowel sounds. Peritoneal fluid leaking through umbilicus. There is a an incarcerated umbilical hernia present. Extremities-no cyanosis, clubbing, or edema Neuro-cranial nerves II through XII intact, motor and sensory function within normal limits, strength symmetrical , no focal deficits Psych-normal affect, normal mood Results & Data Results & Data Vital Signs (Past 12 Hours) Vital Signs Temp Pulse Pulse Resp BP Pulse Ox O2 Del Method 06/15/23 15:05 82 07/29/23 11:47 37.2 C 81 18 99/63 L 99 Room Air 06/15/23 10:36 93 H 06/15/23 07:24 36.8 C 86 18 103/61 99 Room Air Laboratory Results 06/14/23 21:18 06/15/23 07:01 PG Care Time/CCT Total # of Minutes Spent Total Time Spent with Patient: Total time spent is greater than 50% in coordination of care (as documented) at patient's floor/unit and/or counseling patient: Coding Level of Care Code 94710 SUB INP/OBS CARE 3/50MIN Diagnoses Acute hyponatremia E87.1 Open wound of umbilical region with complication S31.105A Encounter type: initial encounter Hepatosplenomegaly R16.2 Alcoholic cirrhosis K70.31 Ascites presence: with ascites (2) Open wound of umbilical region with complication Encounter type: initial encounter Qualified Code(s): S31.105A - Unspecified open wound of abdominal wall, periumbilic region without penetration into peritoneal cavity, initial encounter (4) Alcoholic cirrhosis Ascites presence: with ascites Qualified Code(s): K70.31 - Alcoholic cirrhosis of liver with ascites
[2023-06-15] MEDS ORDERED: COUGH DROP (SUGAR FREE) LOZ 24 LOZ/1 BOX BUCCAL PRN (21:09)
[2023-06-15] MEDS: IBUPROFEN 600 MG TAB PO PRN (21:24)
[2023-06-16] MEDS: SPIRONOLACTONE 100 MG TAB PO SCH (08:01)
[2023-06-16 08:31] LABS: BUN Creatinine Ratio 26.4 (10-20); Calcium 8.2 mg/dl (8.6-10.3); Est GFR (African American) 78.4 ml/min; Est GFR (Non-African American) 67.7 ml/min
[2023-06-16] MEDS: TOLVAPTAN 15 MG TABLET PO SCH (11:06)
[2023-06-16] MEDS: busPIRone 7.5 MG TAB PO PRN (11:06)
--- NOTE | 2023-06-16 13:34 | Hospitalist Progress Note ---
Date of Service June 16, 2023 Assessment & Plan (1) Acute hyponatremia: Plan: Serum osmolarity is low. Sodium level has dropped further to 118. Tolvaptan therapy started. We will discontinue fluid restriction with initiation of tolvaptan therapy. Continue serial labs. Will obtain nephrology consultation if sodium drops further. Low sodium is chronic with him (2) Open wound of umbilical region with complication: Plan: Ascitic peritoneal fluid leaking through the umbilicus has stopped. General surgery consultation and recommendations appreciated. No surgical intervention at this time (3) Hepatosplenomegaly: Plan: Combined TREVINO and alcoholic cirrhosis. (4) Alcoholic cirrhosis: Plan: Alcohol intake cessation highly recommended Plan Hopefully home tomorrow, June 17, on tolvaptan Admission and Anticipated Discharge Date Admission Date: June 15, 2023 Subjective The patient's sodium actually dropped from 1 20-1 18. He was told he could not be discharged home today and he was not pleased. However, he agrees to stay for initiation of tolvaptan and therapy. Fluid restriction has been discontinued since tolvaptan and has been started. If the sodium improves tomorrow, he probably can be discharged home. Ascitic fluid drainage from the umbilical area has ceased Review of Systems Review of Systems: Constitutional-no fever or chills ENT-no blurred vision, no double vision, no epistaxis, no sore throat Respiratory-no cough, no wheezing, no shortness of breath Cardiac-no palpitations, no chest pain, no syncope GI-no nausea, vomiting, diarrhea, melena, hematochezia -no urinary retention, no urinary incontinence, no dysuria, no hematuria Musculoskeletal-no joint pain, no muscle tenderness Skin-no bruising, no rashes, no pruritus Neuro-no isolated weakness, no paresthesia, no weakness Psych-no depression, no anxiety Physical Exam Physical Exam: General-alert and oriented x3, no fevers, no chills HEENT-head atraumatic and normocephalic, pupils equal and reactive to light, e xtraocular muscles intact Neck-no lymphadenopathy or thyromegaly, trachea midline Chest-clear to auscultation percussion. No rales wheezing or rhonchi Cardiac-regular rate and rhythm, normal S1 and S2, no murmurs Abdomen-normal bowel sounds. Peritoneal fluid leaking through umbilicus has ceased. There is an incarcerated umbilical hernia present. Ascitic fluid present Extremities-no cyanosis, clubbing, or edema Neuro-cranial nerves II through XII intact, motor and sensory function within normal limits, strength symmetrical , no focal deficits Psych-normal affect, normal mood Results & Data Results & Data Vital Signs (Past 12 Hours) Vital Signs Temp Pulse Pulse Resp BP Pulse Ox Pulse Ox 06/16/23 11:29 37.0 C 86 18 99/65 L 97 06/16/23 08:03 98/56 L 06/16/23 07:59 36.7 C 86 17 102/69 97 06/16/23 07:47 79 06/16/23 03:46 37.0 C 78 19 91/59 L 98 06/16/23 02:52 99 O2 Del Method O2 Del Method 06/16/23 11:29 Room Air 06/16/23 08:03 06/16/23 07:59 Room Air 06/16/23 07:47 06/16/23 03:46 Room Air 06/16/23 02:52 Room Air Laboratory Results 06/14/23 21:18 06/16/23 06:51 PG Care Time/CCT Total # of Minutes Spent Total Time Spent with Patient: Total time spent is greater than 50% in coordination of care (as documented) at patient's floor/unit and/or counseling patient: Coding Level of Care Code 26246 SUB INP/OBS CARE 3/50MIN Diagnoses Acute hyponatremia E87.1 Open wound of umbilical region with complication S31.105A Encounter type: initial encounter Hepatosplenomegaly R16.2 Alcoholic cirrhosis K70.31 Ascites presence: with ascites (2) Open wound of umbilical region with complication Encounter type: initial encounter Qualified Code(s): S31.105A - Unspecified open wound of abdominal wall, periumbilic region without penetration into peritoneal cavity, initial encounter (4) Alcoholic cirrhosis Ascites presence: with ascites Qualified Code(s): K70.31 - Alcoholic cirrhos is of liver with ascites
[2023-06-16] MEDS: LORazepam 1 MG TAB PO PRN (19:27)
[2023-06-16] MEDS: IBUPROFEN 600 MG TAB PO PRN (19:27)
[2023-06-16] MEDS: BENZONATATE 100 MG CAPSULE PO PRN (20:20)
--- NOTE | 2023-06-17 00:26 | Communication Note ---
Date of Service: June 17, 2023 I was notified by director medical affairs at approximately 12:08 AM that patient notified RN that he had some slight discomfort in his lower abdomen. I visited with patient at the bedside within 10 minutes of receiving this call. Upon reporting to the bedside the patient said that he was feeling well. I questioned him about his abdominal discomfort and he noted that he had some slight discomfort in his lower abdomen lateral to his hernia greatest on the left. He denies any fevers, shakes, or chills. He denies any nausea or vomiting. Patient is noted to be afebrile with a blood pressure of 101/51. His pulse is 87 and regular. On exam the patient is noted to have a moderate amount of abdominal distention with fluid wave. This has increased from what was noted at the time of my initial exam on 06/15/2023. Patient has a protuberant umbilical hernia which also appears to contain ascites. There is a small scab in the umbilicus without any fluid draining similar to what was noted at time of my initial exam. On palpation of the actual hernia self there is no pain. There are no overlying skin changes. The area is not hard or tense. The patient does note pain with palpation lateral to the hernia on each side however there is no rebound tenderness. As the patient has not had any imaging of his abdomen since admission to the hospital we will check a CT scan of the abdomen and pelvis. We performed a CT scan without contrast as this would pose a high risk for contrast-induced nephropathy particularly in the setting of ascites and concomitant diuretic use. The CT scan of the abdomen was reviewed. The patient's hernia only appeared to contain fluid. The interpreting radiologist felt the patient had a possible enteritis versus a diffuse colitis or cirrhotic colopathy. It did not appear as though the patient had anything surgical on his abdomen at this time. I did notify the medical service and informed them of the CT results to determine if they felt antibiotics were required at this time..
--- NOTE | 2023-06-17 02:46 | CT Scan Report ---
Exam(s): CT ABDOMEN + PELVIS Without Contrast EXAM: CT Abdomen and Pelvis Without Intravenous Contrast CLINICAL HISTORY: Reason for exam: abdominal pain. TECHNIQUE: Axial computed tomography images of the abdomen and pelvis without intravenous contrast. Automated exposure control was utilized for the study. A dose lowering technique was utilized adhering to the principles of ALARA. COMPARISON: 02/28/2022. FINDINGS: Lung bases: Mild right lower lobe and lingular atelectasis. Heart: Unremarkable. No significant pericardial effusion. Normal cardiac size. ABDOMEN: Liver: Scattered areas of mild thickening of the wall throughout the colon more so on the right which may indicate cirrhotic colopathy versus colitis. Nodular margins of the liver consistent with cirrhosis. Gallbladder and bile ducts: Tiny gallstones versus sludge along the dependent portion of the gallbladder. Otherwise unremarkable gallbladder and biliary system. No ductal dilation. Pancreas: Unremarkable. No ductal dilation. Spleen: Unremarkable. No splenomegaly. Adrenals: Unremarkable. No mass. Kidneys and ureters: Unremarkable. No obstructing stones. No hydronephrosis. Stomach and bowel: Mild thickening of the wall throughout several small bowel loops which may indicate enteritis versus hypoalbuminemia. PELVIS: Appendix: No findings to suggest acute appendicitis. Bladder: Urinary bladder is incompletely distended, otherwise unremarkable. No stones. Reproductive: Unremarkable as visualized. ABDOMEN and PELVIS: Intraperitoneal space: Moderate to large ascites within both abdomen and pelvis. No free air. Bones/joints: Degenerative disease of the spine. No acute fracture. No dislocation. Soft tissues: Central infraumbilical hernia containing fluid. Vasculature: Multiple nodular structures predominantly throughout the anterior left abdomen, most compatible with volume averaging related to prominent venous structures/varicose veins. No abdominal aortic aneurysm. Lymph nodes: Unremarkable. No enlarged lymph nodes. IMPRESSION: 1. Cirrhosis with moderate to large ascites. 2. Tiny gallstones otherwise unremarkable gallbladder and biliary system. 3. Possible enteritis. 4. Diffuse colitis versus cirrhotic colopathy. 5. Infraumbilical hernia containing fluid. Electronically signed by: Tyesha Rivas MD 06/17/23 02:46 AM
[2023-06-17] MEDS: TOLVAPTAN 15 MG TABLET PO SCH (07:49)
[2023-06-17] MEDS: SPIRONOLACTONE 100 MG TAB PO SCH (07:49)
[2023-06-17 08:49] LABS: BUN Creatinine Ratio 25.5 (10-20); Calcium 8.5 mg/dl (8.6-10.3); Creatinine Clr Calc Pharmacy 51.2 ml/min; Est GFR (African American) 47.9 ml/min; Est GFR (Non-African American) 41.3 ml/min; Potassium 5.6 mmol/L (3.5-5.1)
[2023-06-17 08:52] LABS: Hematocrit (blood only) 40.7 % (42.0-52.0); Hemoglobin 15.1 g/dl (14.0-18.0); Mean Corpuscular Hemoglobin 36.1 pg (25.0-34.0); Mean Corpuscular Hgb Conc 37.1 g/dL (32.0-36.0); Mean Corpuscular Volume 97.4 fL (80.0-100.0); Mean Platelet Volume 8.9 fL (9.4-12.4); Platelet Count 210 K/uL (130-400); RDW Coefficient of Variation 12.7 % (11.5-14.5); RDW Standard Deviation 45.5 fL (36.4-46.3); Red Blood Count 4.18 M/uL (4.70-6.10); White Blood Count 29.62 K/ul (4.8-10.8)
[2023-06-17] MEDS ORDERED: STAT IV STA ×2 (09:07→13:04)
[2023-06-17] MEDS ORDERED: SODIUM CHLORIDE 3 % 150 ML IV ONE ×2 (09:07→13:15)
[2023-06-17 09:20] LABS: Basophils # (auto) 0.13 K/uL (0-0.2); Basophils % (auto) 0.4 %; Eosinophils # (auto) 0.05 K/uL (0-0.50); Eosinophils % (auto) 0.2 %; Immature Granulocytes # (auto) 0.55 K/uL (0.01-0.20); Immature Granulocytes % (auto) 1.9 %; Lymphocytes # (auto) 0.73 K/uL (1.2-3.4); Lymphocytes % (auto) 2.5 %; Monocytes # (auto) 3.41 K/uL (0.11-0.59); Monocytes % (auto) 11.5 %; Neutrophils # (auto) 24.75 K/uL (1.40-6.50); Neutrophils % (auto) 83.5 %
[2023-06-17] MEDS ORDERED: SODIUM CHLORIDE 3 % 200 ML IV ONE ×2 (09:30→23:45)
--- NOTE | 2023-06-17 10:49 | Nephrology Consultation ---
Date of Consultation June 17, 2023 Assessment & Plan (1) Acute hyponatremia: (2) Abdominal hernia: (3) Cirrhosis: (4) Alcoholic cirrhosis: Plan 48-year-old gentleman with history of alcoholic cirrhosis and ascites requiring frequent paracentesis as and chronic hyponatremia admitted with acute hyponatremia and leakage from the umbilical hernia site. Initial serum sodium was 118 slightly improved 120 and then dropped again this morning to 112. Blood pressure relatively low but asymptomatic denies any nausea fusion, headache. No pain nausea or vomiting. --Hypertonic 3% saline 100 mL bolus x1 and then repeat serum sodium after that. Continue monitor serum sodium every 4 hours. Discontinue tolvaptan for now, aim to increase serum sodium to 120 in next 24 hours --consider resuming Bumex if creatinine stabilizes on repeat lab --discontinue spironolactone, low K diet Thank you for allowing me to participate in your patient's care. It was a pleasure to see Jerry History of Present Illness Reason for Consultation: acute hyponatremia with history of chronic hyponatremia Attending Physician: Tamela Alva MD History of Present Illness Mr. Jerry Carrasco is a 48-year-old male with S medical history significant for cirrhosis with ascites requiring frequent paracenteses, admitted to the hospital with leakage from medical hernia site and noted to have acute hyponatremia history of chronic hyponatremia. Nephrology consult was requested for management of above. EMR records reviewed in detail during patient's visit. Jerry Has history liver cirrhosis with ascites for last more than a year and recently has been getting paracenteses every 2 weeks. Last paracentesis was on 06/10/2023 when he had 9 L fluid removed. He presented to the hospital 2 days ago with leaking of clear liquid from umbilical hernia site. Has had an ulcer overlying this hernia for several weeks which broke open and leaked day of admission. leakage currently stopped. Has been having hyponatremia for last more than a year low serum sodium was 128 in lately staying from 129-134. On admission sodium was 118 which improved to 120 yesterday but then dropped again to 118. Urine osmolality 472 and urine sodium less than 15. TSH, random cortisol pending. Initially received normal saline. Then was started on tolvaptan mg daily yesterday. This morning his sodium dropped to 112 associated with hyperkalemia and acute kidney injury, creatinine was 1.9 with baseline creatinine 1.2-1.3. Urinalysis was unremarkable. CT abdomen pelvis was otherwise unremarkable except colitis. Diagnosed with liver cirrhosis more than a year ago because of alcoholic cirrhosis since then he stops drinking but previously had long history of alcohol intake. Never smoker. He has upcoming follow-up with hepatology at [facility] for liver transplant evaluation. at home he has been on Bumex 2 mg twice a day and spironolactone 100 mg daily. Last MELD score was 21. No pertinent family history. 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 Allergies Allergy/AdvReac Type Severity Reaction Status Date / Time No Known Allergies Allergy Verified 06/04/23 13:14 Home Medications Medication Instructions Recorded Confirmed Type buspirone 7.5 mg tablet 7.5 mg PO BID PRN Anxiety #180 tabs 03/14/23 06/14/23 Rx bumetanide 2 mg tablet 2 mg PO BID 06/04/23 06/14/23 History mupirocin 2 % topical ointment 1 applic topical BID PRN redness 06/04/23 06/14/23 History spironolactone 100 mg tablet 100 mg PO QAM 06/14/23 06/14/23 History Patient History Medical History Abdominal ascites Abdominal hernia Alcohol abuse Alcoholic cirrhosis Anxiety Babesiosis (~09/2020) Elevated blood pressure reading in office without diagnosis of hypertension Elevated liver enzymes Fatigue Generalized body aches Gout hx of Hepatosplenomegaly History of abdominal paracentesis x3--11/23/22, 11/28/22, 12/21/22 Tick bite hx of Surgical History No pertinent past surgical history Family History Mother Anxiety Father Heart disease Hypertension Sister Anxiety Other No family history of adverse response to anesthesia Denies family history of Ovarian cancer Prostate cancer Myocardial infarction Breast cancer Colorectal cancer Social History Smoking Status: Never smoker Second Hand Exposure: No; Do You Dip or Chew Tobacco: No; Hx Alcohol Use: Yes Alcohol type: beer Hx Substance Use: No Preferred Language: Icelandic Communication Ability: Effective Visual Impairment: No Limitations Hearing Ability: Normal Bead Worker Sewing Required: No Beliefs That Will Affect Care: None Current Living Situation: Alone Current Living Situation Comment: self current occupational status: employed 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 Physical Exam Constitutional: WD/WN, vitals as above no acute distress Eyes: + anicteric sclerae Neck: normal visual inspection Respiratory: normal respiratory effort; no respiratory distress Auscultation: lungs clear to auscultation bilaterally Cardiovascular: Rate/Rhythm: regular rate and regular rhythm Heart Sounds: normal S1 and normal S2 Extremities: + edema (trace b/l LE edema) Gastrointestinal (Abdomen): Inspection/Auscultation: + abdomen distended Percussion/Palpation: abdomen soft; abdomen nontender Musculoskeletal: Extremities: extremities normal to inspection Skin: no rashes, warm and dry Neurologic: no focal motor deficits and not confused Psychiatric: Orientation: alert and oriented x 3 Affect: euthymic affect Results & Data Vital Signs (Past 12 Hours) Vital Signs Temp Pulse Pulse Resp BP Pulse Ox O2 Del Method 06/17/23 07:00 98 H 06/17/23 07:50 36.5 C 100 H 16 101/67 97 Room Air 06/17/23 03:45 36.8 C 81 14 91/61 L 99 Room Air 06/17/23 02:31 99 H 06/16/23 23:44 36.9 C 87 12 101/51 L 99 Room Air PG Care Time/CCT Total # of Minutes Spent Total Time Spent with Patient: Total time spent is greater than 50% in coordination of care (as documented) at patient's floor/unit and/or counseling patient: Coding Level of Care Code 57972 INT INP/OBS CARE 3/75MIN Diagnoses Acute hyponatremia E87.1 Abdominal hernia K46.9 Cirrhosis K74.60 Alcoholic cirrhosis K70.31 Ascites presence: with ascites (4) Alcoholic cirrhosis Ascites presence: with ascites Qualified Code(s): K70.31 - Alcoholic cirrhosis of liver with ascites
[2023-06-17 12:41] LABS: Albumin Level 2.5 gm/dl (3.4-5.0); BUN Creatinine Ratio 26.5 (10-20); Calcium 7.9 mg/dl (8.6-10.3); Creatinine Clr Calc Pharmacy 50.9 ml/min; Est GFR (African American) 47.6 ml/min; Phosphorus 4.9 mg/dl (2.5-4.9); Potassium 5.2 mmol/L (3.5-5.1)
--- NOTE | 2023-06-17 13:55 | Surgery Progress Note ---
Date of Service June 17, 2023 Assessment & Plan (1) Umbilical hernia: Plan: 48-year-old male with advanced cirrhosis and normal ascites refractory to medical treatment requiring repeated paracentesis. He has an umbilical hernia that feels with ascites, and had some drainage few days ago but no continued drainage. His CT scan is unremarkable for any abdominal pathology, and no issues with the hernia. No acute surgical intervention indicated at this time Given his advanced cirrhosis and refractory ascites, any surgical intervention should be undertaken at a tertiary center with hepatology and more advanced services Continue work-up for hyponatremia and leukocytosis Surgery will sign off, call with questions or concerns (2) Alcoholic cirrhosis: (3) Abdominal ascites: (4) Abdominal pain: Admission and Anticipated Discharge Date Admission Date: June 15, 2023 Subjective 40-year-old male with cirrhosis, initially consulted for umbilical hernia with drainage of fluid. Surgery has signed off, however overnight he developed some increasing abdominal pain. Her PA evaluated him and ordered a CT scan which showed no evidence of complication with the hernia. This morning he has no abdominal pain, his bowels are functioning. Physical Exam Constitutional: WD/WN, vitals as above Gastrointestinal (Abdomen): Inspection/Auscultation: + abdomen distended and + visible herniation Percussion/Palpation: abdomen soft and + hernia (Umbilical, no drainage); abdomen nontender, no guarding and abdomen not rigid Results & Data Vital Signs (Past 12 Hours) Vital Signs Temp Pulse Pulse Resp BP Pulse Ox O2 Del Method 06/17/23 11:18 36.7 C 88 18 96/56 L 99 Room Air 06/17/23 07:00 98 H 06/17/23 07:50 36.5 C 100 H 16 101/67 97 Room Air 06/17/23 03:45 36.8 C 81 14 91/61 L 99 Room Air 06/17/23 02:[address] scan personally reviewed and interpreted, increased ascites, ascites contained within the umbilical hernia with no incarcerated bowel, no free air or other surgical issue. EXAM: CT Abdomen and Pelvis Without Intravenous Contrast CLINICAL HISTORY: Reason for exam: abdominal pain. TECHNIQUE: Axial computed tomography images of the abdomen and pelvis without intravenous contrast. Automated exposure control was utilized for the study. A dose lowering technique was utilized adhering to the principles of ALARA. COMPARISON: 02/28/2022. FINDINGS: Lung bases: Mild right lower lobe and lingular atelectasis. Heart: Unremarkable. No significant pericardial effusion. Normal cardiac size. ABDOMEN: Liver: Scattered areas of mild thickening of the wall throughout the colon more so on the right which may indicate cirrhotic colopathy versus colitis. Nodular margins of the liver consistent with cirrhosis. Gallbladder and bile ducts: Tiny gallstones versus sludge along the dependent portion of the gallbladder. Otherwise unremarkable gallbladder and biliary system. No ductal dilation. Pancreas: Unremarkable. No ductal dilation. Spleen: Unremarkable. No splenomegaly. Adrenals: Unremarkable. No mass. Kidneys and ureters: Unremarkable. No obstructing stones. No hydronephrosis. Stomach and bowel: Mild thickening of the wall throughout several small bowel loops which may indicate enteritis versus hypoalbuminemia. PELVIS: Appendix: No findings to suggest acute appendicitis. Bladder: Urinary bladder is incompletely distended, otherwise unremarkable. No stones. Reproductive: Unremarkable as visualized. ABDOMEN and PELVIS: Intraperitoneal space: Moderate to large ascites within both abdomen and pelvis. No free air. Bones/joints: Degenerative disease of the spine. No acute fracture. No dislocation. Soft tissues: Central infraumbilical hernia containing fluid. Vasculature: Multiple nodular structures predominantly throughout the anterior left abdomen, most compatible with volume averaging related to prominent venous structures/varicose veins. No abdominal aortic aneurysm. Lymph nodes: Unremarkable. No enlarged lymph nodes. IMPRESSION: 1. Cirrhosis with moderate to large ascites. 2. Tiny gallstones otherwise unremarkable gallbladder and biliary system. 3. Possible enteritis. 4. Diffuse colitis versus cirrhotic colopathy. 5. Infraumbilical hernia containing fluid. PG Care Time/CCT Total # of Minutes Spent Total Time Spent with Patient: Total time spent is greater than 50% in coordination of care (as documented) at patient's floor/unit and/or counseling patient: Coding Level of Care Code 62602 SUB INP/OBS CARE 2/35MIN Diagnoses Umbilical hernia K42.9 Alcoholic cirrhosis K70.31 Ascites presence: with ascites Abdominal ascites K70.31 Ascites type: due to alcoholic cirrhosis Abdominal pain R10.9 (2) Alcoholic cirrhosis Ascites presence: with ascites Qualified Code(s): K70.31 - Alcoholic cirrhos is of liver with ascites (3) Abdominal ascites Ascites type: due to alcoholic cirrhosis Qualified Code(s): K70.31 - Alcoholic cirrhosis of liver with ascites
[2023-06-17] MEDS ORDERED: cefTRIAXone SODIUM 2,000 MG in DEXTROSE 5% 50 ML IV SCH (15:15)
--- NOTE | 2023-06-17 15:26 | Hospitalist Progress Note ---
Date of Service June 17, 2023 Assessment & Plan (1) Acute hyponatremia: Plan: Serum sodium continues to drop despite Tolvaptan Will discontine Tolvpatan, appreciate Neprology Currently on 3% Saline Will contiue to re check serum sodium (2) Open wound of umbilical region with complication: Plan: Ascitic peritoneal fluid leaking through the umbilicus has stopped. General surgery consultation and recommendations appreciated. No surgical intervention at this time (3) Hepatosplenomegaly: Plan: Combined TREVINO and alcoholic cirrhosis. (4) Alcoholic cirrhosis: Plan: Alcohol intake cessation highly recommended Elevated WBC, will start Ceftriaxone monitor cultures Plan d/c when serum sodium stabilizes Admission and Anticipated Discharge Date Admission Date: June 15, 2023 Subjective patient seen and examined, no more drainage from the hernia site Review of Systems Review of Systems: All systems reviewed are negative, apart from the ones contained in the history. Physical Exam Physical Exam: The patient is awake, alert and oriented 3, well developed and well nourished, normocephalic and atraumatic, lying in bed and in no acute distress. HEENT--PERRL, EOMI, mucous membranes and oropharynx mildly dry Neck--supple. No JVD. No bruits. Thyroid normal, trachea midline, no adenopathy. Heart--normal S1 and S2. No murmurs, rubs or gallops. Lungs--clear bilaterally, no respiratory distress, no accessory muscle use. Abdomen--umbilical hernia Extremities--no cyanosis or clubbing. No edema. Dermatologic--normal skin turgor, normal color, no abnormal lymph nodes, no rash. Neurologic--cranial nerves II through XII grossly intact. Rheumatologic--normal range of motion. Psychiatric--normal affect. Results & Data Results & Data Vital Signs (Past 12 Hours) Vital Signs Temp Pulse Pulse Resp BP Pulse Ox O2 Del Method 06/17/23 14:55 83 06/17/23 11:18 98.1 F 88 18 96/56 L 99 Room Air 06/17/23 07:00 98 H 06/17/23 07:50 97.7 F 100 H 16 101/67 97 Room Air 06/17/23 03:45 98.2 F 81 14 91/61 L 99 Room Air PG Care Time/CCT Total # of Minutes Spent Total Time Spent with Patient: Total time spent is greater than 50% in coordination of care (as documented) at patient's floor/unit and/or counseling patient: Coding Level of Care Code 39402 SUB INP/OBS CARE MIN Diagnoses Acute hyponatremia E87.1 Open wound of umbilical region with complication S31.105A Encounter type: initial encounter Hepatosplenomegaly R16.2 Alcoholic cirrhosis K70.31 Ascites presence: with ascites Time Spent (min) 35 (2) Open wound of umbilical region with complication Encounter type: initial encounter Qualified Code(s): S31.105A - Unspecified open wound of abdominal wall, periumbilic region without penetration into peritoneal cavity, initial encounter (4) Alcoholic cirrhosis Ascites presence: with ascites Qualified Code(s): K70.31 - Alcoholic cirrhosi s of liver with ascites
[2023-06-17 16:28] LABS: Albumin Level 2.5 gm/dl (3.4-5.0); BUN Creatinine Ratio 24.9 (10-20); Calcium 7.8 mg/dl (8.6-10.3); Creatinine Clr Calc Pharmacy 46.9 ml/min; Est GFR (African American) 43.1 ml/min; Est GFR (Non-African American) 37.2 ml/min; Phosphorus 4.9 mg/dl (2.5-4.9); Potassium 5.2 mmol/L (3.5-5.1)
[2023-06-17] MEDS ORDERED: TOLVAPTAN 15 MG TABLET PO ONE (18:18)
[2023-06-17] MEDS: IBUPROFEN 600 MG TAB PO PRN (23:10)
[2023-06-17] MEDS: BENZONATATE 100 MG CAPSULE PO PRN (23:10)
[2023-06-17] MEDS: LORazepam 1 MG TAB PO PRN (23:10)
[2023-06-18] MEDS: SODIUM CHLORIDE 1 GM TABLET PO SCH ×2 (00:55→08:28)
--- NOTE | 2023-06-18 01:37 | Communication Note ---
Date of Service: June 18, 2023 Evening Na continues to decrease now at 111. Case discussed with attending. 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 Started on 2mg salt tabs bid with fluid restriction 1200mls. Prior vaptan therapy can also take some time to kick in. Repeat Na with morning labs. Patient otherwise still alert and oriented, no changes from the day. I did speak with the patient's over the phone as she was concerned with the Na not improving. I did briefly discuss case with her but deferred further questions to day team.
[2023-06-18 07:32] LABS: Albumin Level 2.5 gm/dl (3.4-5.0); BUN Creatinine Ratio 26.4 (10-20); Calcium 8.1 mg/dl (8.6-10.3); Creatinine Clr Calc Pharmacy 46.3 ml/min; Est GFR (African American) 42.4 ml/min; Est GFR (Non-African American) 36.6 ml/min; Phosphorus 4.9 mg/dl (2.5-4.9); Potassium 6.4 mmol/L (3.5-5.1)
[2023-06-18] MEDS ORDERED: PATIROMER CALCIUM SORBITEX 8.4 GM PACK PO STA (08:11)
[2023-06-18] MEDS ORDERED: STAT IV STA (08:11)
[2023-06-18] MEDS ORDERED: SODIUM ZIRCONIUM CYCLOSILICATE 10 GM PACKET PO STA (08:21)
[2023-06-18] MEDS ORDERED: SODIUM CHLORIDE 3 % 150 ML IV ONE (08:30)
--- NOTE | 2023-06-18 09:40 | Surgery Progress Note ---
Date of Service June 18, 2023 Assessment & Plan (1) Umbilical hernia: Plan: Was called to bedside this AM as patient had a large amount of peritoneal leakage from his umbilicus after he had an episode of emesis Upon evaluation there is an opening in the umbilical skin leaking a large amount of ascitic fluid A compression dressing was applied, will also recommend placing an abdominal binder. May consider placing a stitch later if needed Would consider giving patient albumin due to the large volume of fluid leaking out and treat similarly to a paracentesis, monitor BPs Patient has electrolyte derangements noted, Na 111 and K 6.4, nephrology has been consulted Giving new developments of this AM along with his multiple medical issues stemming from advanced cirrhosis, would recommend transferring patient to a tertiary center for further management of umbilical hernia and medical issues. priority likely [facility] as per patient they have been working him up for liver txp. discussed with hospitalists Admission and Anticipated Discharge Date Admission Date: June 15, 2023 Supervising Physician Co-Signing Physician Notes Patient seen and examined, labs reviewed, agree with above. 48-year-old male with cirrhosis and ascites refractory to medical treatment along with umbilical hernia, admitted for hyponatremia. We had been following for his umbilical hernia. The drainage had stopped. This morning he had a sudden gush of fluid from the umbilical site. Pressure dressing was applied. He was given albumin. He is afebrile with stable vitals, his abdomen is soft, less distended, 5 mm opening in umbilicus with surrounding fibrinous exudate. The previous eschar is gone. Sodium worsening to 112, WBC 23 slightly improved, potassium elevated. Given his significant lab abnormalities and worsening hyponatremia, along with his severe cirrhosis and ascites, we would recommend transfer to a tertiary facility for management of his umbilical hernia and other comorbidities. He should remain supine with a pressure dressing in place until transfer. Subjective Was called to bedside this AM as patient had a large amount of peritoneal leakage from his umbilicus. He states he felt nauseated this AM and threw up which propagated an area of his umbilical skin to open and start leaking. He has some abdominal discomfort which is unchanged from the day prior. Last BM was yesterday evening. Physical Exam Physical Exam: awake Respiratory: normal respiratory effort Gastrointestinal (Abdomen): Percussion/Palpation: + abdomen tender (some discomfort noted on R and L sides of the umbilical hernia) and abdomen soft there is an opening in the umbilical skin leaking a large volume of ascitic fluid. there is a small scab noted in the area. overlying skin is mildly erythematous which is unchanged from prior. Results & Data Vital Signs (Past 12 Hours) Vital Signs Temp Pulse Pulse Resp BP BP Pulse Ox 06/18/23 08:42 37 C 99 H 16 114/71 99 06/18/23 07:52 106 H 06/18/23 07:36 92/60 L 06/18/23 07:26 36.7 C 102 H 18 87/58 L 99 06/18/23 03:06 36.8 C 112 H 20 87/59 L 98 06/18/23 01:31 106 H 06/17/23 23:06 36.8 C 98 H 14 104/70 99 O2 Del Method 06/18/23 08:42 Room Air 06/18/23 07:52 06/18/23 07:36 06/18/23 07:26 Room Air 06/18/23 03:06 Room Air 06/18/23 01:31 06/17/23 23:06 Room Air PG Care Time/CCT Total # of Minutes Spent Total Time Spent with Patient: Total time spent is greater than 50% in coordination of care (as documented) at patient's floor/unit and/or counseling patient: Coding Level of Care Code 44337 SUB INP/OBS CARE 3/50MIN Diagnoses Umbilical hernia K42.9
[2023-06-18] MEDS ORDERED: ALBUMIN 25% 25 GM/100 ML VIAL IV ONE (10:10)
[2023-06-18 11:22] LABS: Albumin Level 2.4 gm/dl (3.4-5.0); BUN Creatinine Ratio 27.2 (10-20); Creatinine Clr Calc Pharmacy 46.7 ml/min; Est GFR (African American) 42.9 ml/min; Phosphorus 5.3 mg/dl (2.5-4.9); Potassium 6.2 mmol/L (3.5-5.1)
--- NOTE | 2023-06-18 11:24 | Nephrology Progress Note ---
Date of Service June 18, 2023 Assessment & Plan (1) Acute hyponatremia: (2) Abdominal hernia: (3) Cirrhosis: (4) Alcoholic cirrhosis: Plan 48-year-old gentleman with history of alcoholic cirrhosis and ascites requiring frequent paracentesis as and chronic hyponatremia admitted with acute hyponatremia and leakage from the umbilical hernia site. Initial serum sodium was 118 slightly improved 120 and then dropped again this morning to 112. Blood pressure relatively low but asymptomatic denies any nausea fusion, headache. No pain nausea or vomiting. --Hypertonic 3% saline 200 mL bolus x1 and then repeat serum sodium after that. Continue monitor serum sodium every 4 hours. --Lokelma 10 gm x 1 dose now --consider resuming Bumex if creatinine stabilizes on repeat lab --low K diet Admission and Anticipated Discharge Date Admission Date: June 15, 2023 Bubba Edwards was seen and examined this morning. He has been having peritoneal fluid leaking and some discomfort in abdomen but no fever or chills. denies confusion, headache. Sodium remained low at 111 after repeated doses of hypertonic saline bolus. potassium was elevated at 6.4. Review of Systems Review of Systems: ROS was unremarkable except mentioned above. Physical Exam Constitutional: WD/WN, vitals as above + ill appearing; no acute distress Neck: normal visual inspection Respiratory: normal respiratory effort; no respiratory distress Auscultation: lungs clear to auscultation bilaterally Cardiovascular: Rate/Rhythm: regular rate and regular rhythm Heart Sounds: normal S1 and normal S2 Extremities: no edema Gastrointestinal (Abdomen): slightly distended, tender, dressing on. Musculoskeletal: Extremities: extremities normal to inspection Skin: no rashes, warm and dry Neurologic: no focal motor deficits and not confused Psychiatric: Orientation: alert and oriented x 3 Affect: euthymic affect Results & Data Vital Signs (Past 12 Hours) Vital Signs Temp Pulse Pulse Resp BP BP Pulse Ox 06/18/23 08:42 37 C 99 H 16 114/71 99 06/18/23 07:52 106 H 06/18/23 07:36 92/60 L 06/18/23 07:26 36.7 C 102 H 18 87/58 L 99 06/18/23 03:06 36.8 C 112 H 20 87/59 L 98 06/18/23 01:31 106 H O2 Del Method 06/18/23 08:42 Room Air 06/18/23 07:52 06/18/23 07:36 06/18/23 07:26 Room Air 06/18/23 03:06 Room Air 06/18/23 01:31 PG Care Time/CCT Total # of Minutes Spent Total Time Spent with Patient: Total time spent is greater than 50% in coordination of care (as documented) at patient's floor/unit and/or counseling patient: Coding Level of Care Code 62840 SUB INP/OBS CARE 2/35MIN Diagnoses Acute hyponatremia E87.1 Abdominal hernia K46.9 Cirrhosis K74.60 Alcoholic cirrhosis K70.31 Ascites presence: with ascites (4) Alcoholic cirrhosis Ascites presence: with ascites Qualified Code(s): K70.31 - Alcoholic cirrhosis of liver with ascites
[2023-06-18 11:31] LABS: Acanthocytes 1+; Basophils # (auto) 0.05 K/uL (0-0.2); Basophils % (auto) 0.2 %; Echinocytes 2+; Eosinophils # (auto) 0.02 K/uL (0-0.50); Eosinophils % (auto) 0.1 %; Hemoglobin 11.8 g/dl (14.0-18.0); Immature Granulocytes # (auto) 0.37 K/uL (0.01-0.20); Immature Granulocytes % (auto) 1.5 %; Lymphocytes # (auto) 0.39 K/uL (1.2-3.4); Lymphocytes % (auto) 1.6 %; Mean Corpuscular Hemoglobin 36.6 pg (25.0-34.0); Mean Corpuscular Hgb Conc 38.1 g/dL (32.0-36.0); Mean Corpuscular Volume 96.3 fL (80.0-100.0); Mean Platelet Volume 8.8 fL (9.4-12.4); Monocytes # (auto) 3.42 K/uL (0.11-0.59); Monocytes % (auto) 14.3 %; Neutrophils # (auto) 19.72 K/uL (1.40-6.50); Neutrophils % (auto) 82.3 %; Platelet Count 315 K/uL (130-400); Polychromasia 1+; RDW Coefficient of Variation 12.8 % (11.5-14.5); RDW Standard Deviation 45.1 fL (36.4-46.3); Red Blood Count 3.22 M/uL (4.70-6.10); White Blood Count 23.97 K/ul (4.8-10.8)
[2023-06-18] MEDS ORDERED: MIDODRINE HCL 2.5 MG TAB PO SCH (12:00)
--- NOTE | 2023-06-18 12:02 | Discharge Summary ---
Date of Service June 18, 2023 Admission HPI Per Admitting Provider Jerry is a 48-year-old male past medical history of leaking umbilical hernia. Patient receives biweekly paracentesis due to cirrhosis, noticed large amount of clear fluid draining from his hernia today with reduction of his abdominal ascites. Has had an ulcer overlying this hernia for several weeks which broke open and leaked day of admission. ~1L of yellow translucent fluid drained. No pain. Last dose of lasix/annamarie 06/14 AM. Low salt diet. No fevers, chills, or sweats. No chest pain or chest pressure No shortness of breath. No cough/sputum production. Endorses some fatigue Denies leg swelling. Legs feel normal for him today Feels dehydrated. Eating and drinking normally last few days. No diarrhea Medical History: Reviewed Medications: Reviewed Surgical History: Reviewed Family history: Reviewed Allergies: Reviewed Social History: Reviewed, denies recent ETOH use. Code Status: Full Code Principal Diagnosis complicated umblical hernia Discharge Exam The patient is awake, alert and oriented 3, well developed and well nourished, normocephalic and atraumatic, lying in bed and in no acute distress. HEENT--PERRL, EOMI, mucous membranes and oropharynx mildly dry Neck--supple. No JVD. No bruits. Thyroid normal, trachea midline, no adenopathy. Heart--normal S1 and S2. No murmurs, rubs or gallops. Lungs--clear bilaterally, no respiratory distress, no accessory muscle use. Abdomen--umbilical hernia Extremities--no cyanosis or clubbing. No edema. Dermatologic--normal skin turgor, normal color, no abnormal lymph nodes, no rash. Neurologic--cranial nerves II through XII grossly intact. Rheumatologic--normal range of motion. Psychiatric--normal affect. Discharge Data Allergies Allergy/AdvReac Type Severity Reaction Status Date / Time No Known Allergies Allergy Verified 06/04/23 13:14 Consultations 06/14/23 22:28 ED Decision to Admit Stat 06/15/23 03:36 Consult General Surgery Routine 06/17/23 08:05 Consult Nephrology Routine 06/18/23 09:10 Burn CD for patient Stat Ordered Studies 06/17/23 01:01 CT Abd and Pelvis [CT abd pelvis wo con] Stat Hospital Course (1) Acute hyponatremia: Serum sodium continues to drop despite Tolvaptan Will discontine Tolvpatan, appreciate Neprology Currently on 3% Saline Will contiue to re check serum sodium (2) Open wound of umbilical region with complication: Ascitic peritoneal fluid leaking through the umbilicus worsened this morning. General surgery consultation and recommendations appreciated. No surgical intervention at this time Plan is to transfer to [facility] ICU (3) Hepatosplenomegaly: Combined TREVINO and alcoholic cirrhosis. (4) Alcoholic cirrhosis: Alcohol intake cessation highly recommended Elevated WBC, will start Ceftriaxone monitor cultures Plan d/c when serum sodium stabilizes Total Time Total Time Spent Total Time Spent (In Minutes): 35 Discharge Plan Discharge Items Patient Disposition: Transfer Acute Care Hospital Reason For Visit: HYPONATREMIA Discharge Diagnosis: hyponatremia, complicated umbical hernia Activity: Per Instructions section Non-emergency contact: Primary Care Provider and Outreach Analyst Call non-emergency contact if: you have any medication questions Follow-up/Referrals: Mohsen Laboy CRNP [Primary Care Provider] - Diet: Regular Addtl Attending Provider Instructions: please follow up with your warehouse coordinator at [facility] Pending Studies at Discharge: No Stand-Alone Forms: My [facility] Skilled Items Patient informed of condition?: Yes DNR: No Discharge Level of Care: Other Communicable Disease: No Discharge Prognosis: Stable Lines: Peripheral IV Urinary Catheter: No Medications and DC Order Prescriptions: Continued buspirone 7.5 mg tablet 7.5 mg PO BID PRN (Reason: Anxiety) Qty: 180 2RF mupirocin 2 % ointment 1 applic topical BID PRN (Reason: redness) bumetanide 2 mg tablet 2 mg PO BID spironolactone 100 mg tablet 100 mg PO QAM Discharge Orders: Discharge Order (Routine); Ordered 06/18/23 Ordered By: Tamela Alva Admission Data Admit Date/Time: 06/15/23 01:23 Attending Provider: Tamela Alva Admit Provider: Dima Atkinson Primary Care Provider: Mohsen Laboy Other Providers: Dima Atkinson ; Diogenes Prater ; Gina Saravia Coding Level of Care Code 09915 INP/OBS DISCH >30 MIN Diagnoses Acute hyponatremia E87.1 Open wound of umbilical region with complication S31.105A Encounter type: initial encounter Hepatosplenomegaly R16.2 Alcoholic cirrhosis K70.31 Ascites presence: with ascites Time Spent (min) 35
== END 2023-06-18 15:11 | disposition short-term general hospital (02) | DRG 433 ==
LOC: ED 18:36 → SUATTDRO 06-15 01:23 → 2E 06-15 01:23

== ENCOUNTER 2023-07-15 12:59 | Inpatient (IN) ==
--- NOTE | 2023-07-15 13:43 | XRay Report ---
SINGLE VIEW CHEST CLINICAL HISTORY: Generalized weakness. FINDINGS: A PA chest radiograph is compared to study dated 11/22/2022. The cardiomediastinal silhouette is unremarkable. There is chronic elevation of the right hemidiaphragm. There is a small right pleur al effusion with right basilar atelectasis. The left lung appears clear. No pneumothorax is seen. The bony thorax is grossly intact. IMPRESSION: Right pleural effusion with associated right basilar atelectasis. ACT 112: Negative or not required by law. Electronically signed by: Juanito Austin M.D. 07/15/2023 1:41 PM
[2023-07-15 14:03] LABS: Basophils # (auto) 0.08 K/uL (0.00-0.20); Basophils % (auto) 0.5 %; Eosinophils # (auto) 0.01 K/uL (0.00-0.50); Eosinophils % (auto) 0.1 %; Hematocrit (blood only) 26.3 % (42.0-52.0); Hemoglobin 9.5 g/dl (14.0-18.0); Lymphocytes # (auto) 0.87 K/uL (1.20-3.40); Lymphocytes % (auto) 5.7 %; Mean Corpuscular Hemoglobin 35.8 pg (25.0-34.0); Mean Corpuscular Hgb Conc 36.1 g/dL (32.0-36.0); Mean Corpuscular Volume 99.2 fL (80.0-100.0); Mean Platelet Volume 8.1 fL (9.4-12.4); Monocytes # (auto) 2.17 K/uL (0.11-0.59); Monocytes % (auto) 14.2 %; Neutrophils # (auto) 11.85 K/uL (1.40-6.50); Neutrophils % (auto) 77.5 %; Platelet Count 287 K/uL (130-400); RDW Coefficient of Variation 14.5 % (11.5-14.5); RDW Standard Deviation 51.5 fL (36.4-46.3); Red Blood Count 2.65 M/uL (4.70-6.10); White Blood Count 15.28 K/ul (4.8-10.8)
[2023-07-15 14:13] LABS: INR 1.3 (0.9-1.1); Partial Thromboplastin Ratio 1.1; Partial Thromboplastin Time 30.2 Seconds (21.0-31.0); Prothrombin Time 14.3 Seconds (9.0-12.0)
[2023-07-15 14:50] LABS: Albumin Level 2.7 gm/dl (3.4-5.0); Bilirubin,Total 2.8 mg/dl (0.2-1.0); Calcium 8.1 mg/dl (8.6-10.3); Magnesium 1.4 mg/dl (1.7-2.4); Potassium 3.7 mmol/L (3.5-5.1)
[2023-07-15 14:56] LABS: Albumin Globulin Ratio 0.7 (0.9-2); Creatinine Clr Calc Pharmacy 173.9 ml/min; Est GFR (African American) 137.8 ml/min; Est GFR (Non-African American) 118.9 ml/min; Globulin 3.9 gm/dl (2.5-4.0); Total Protein 6.6 gm/dl (6.0-8.3)
[2023-07-15 15:01] LABS: Troponin I High Sensitivity 10.5 pg/ml (0-20)
[2023-07-15] MEDS ORDERED: SODIUM CHLORIDE 0.9% 1,000 ML IV SCH (16:15)
[2023-07-15] MEDS ORDERED: cefTRIAXone SODIUM 2,000 MG/70 ML BAG IV STA (16:15)
[2023-07-15] MEDS ORDERED: IOVERSOL 350 MG 125mL Prefilled Syringe IV ONE (16:46)
--- NOTE | 2023-07-15 17:10 | CT Scan Report ---
CT angio chest PE protocol CLINICAL HISTORY: cp sob s/p hernia repair TECHNIQUE: Multidetector row helical CT of the chest was performed with angiographic protocol. [place] l and sagittal reformations were obtained. Coronal and sagittal MIPS were obtained from the axial nicole a set and were submitted for review. Automated dose lowering techniques and/or adjustment according to patient size were utilized for this exam. CT DOSE: 2311.50 mGy.cm Comparison: None available at the time of this dictation. FINDINGS: Lungs and pleura: Large right pleural effusion is seen. Heart and pericardium: Heart size is normal. No pericardial effusion. Vessels: No evidence of pulmonary embolism. Mediastinum and jean carlos: Unremarkable. Chest wall and lower neck: Unremarkable. Abdomen: For findings below the diaphragm, please refer to CT of the abdomen dated the same. Bones: Degenerative changes in the thoracic spine. IMPRESSION: 1. No evidence of pulmonary embolus. 2. Large right pleural effusion with midline shift and right atelectasis. ACT 112: Negative or not required by law. Electronically signed by: Jose Guadalupe Peguero M.D. 07/15/2023 5:08 PM
--- NOTE | 2023-07-15 17:14 | CT Scan Report ---
CT OF THE ABDOMEN AND PELVIS WITH CONTRAST CLINICAL HISTORY: Abdominal pain status post hernia repair. COMPARISON STUDY: CT of the abdomen and pelvis December 18, 2022. TECHNIQUE: Following IV administration of 115 mL of Optiray, axial images of the abdomen and pelvis w ere obtained from the lung bases to the proximal femurs. Images were reviewed in the axial, sagittal, and coronal planes. IV contrast was administered without complication. Automated exposure control w as utilized for the study. A dose lowering technique was utilized adhering to the principles of ALAFrances Fortune. FINDINGS: Please note that the chest CT will be reported separately. A large right pleural effusion h as developed since abdominal CT of June 17, 2023. Right middle lobe and right lower lobe airspace [place] atelectasis. No pneumatosis, free air or portal venous gas is present. Interval umbilical hernia repair is noted. Moderate loculated abdominal and pelvic ascites is present. There is diffuse peritoneal thickening and enhancement. Loculated perihepatic component is noted. Suspected septation s are noted within portions of the ascites. Small amount of layering hyperdense material within the p maria a is present. The liver is cirrhotic. No hepatic lesions are identified. Splenomegaly and varices formation are unchanged. Rectal wall thickening as well as wall thickening of portions of the colon and multiple small bowel loops is again noted. This was shown on prior exams and is likely related to cirrhosis. The main, left and right portal veins are patent. The splenic vein as well as the superio r mesenteric vein are patent. There is no hydronephrosis. Adrenal glands, kidneys and pancreas are un remarkable. Bladder wall thickening is noted. IMPRESSION: 1. Moderate complex loculated abdominal and pelvic ascites with diffuse peritoneal thickening and enh ancement and a small amount of layering hyperdense material within the pelvis. Sterility cannot be as sessed by CT however the findings raise the possibility of an infectious process such as peritonitis and could be correlated with paracentesis results. 2. Cirrhosis with manifestations of portal hypertension including splenomegaly and varices formation. Wall thickening of the rectum, portions of the colon and multiple small bowel loops is likely relate d to cirrhosis. 3. Interval development of a large right pleural effusion. This may reflect a hepatic hydrothorax. 4. Status post interval umbilical hernia repair. ACT 112: Negative or not required by law. Electronically signed by: Kiet Pena M.D. 07/15/2023 5:13 PM
[2023-07-15] MEDS ORDERED: LIDOCAINE 1%/EPINEPHRINE 1:100,000 20 ML VIAL ONE (18:16)
--- NOTE | 2023-07-15 19:39 | History & Physical Report ---
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, will defer pulmonology consult for now given pt's lack of respiratory symptoms and stable on RA -Continue diuresis with Bumex, spironolactone (3) Alcoholic cirrhosis: Plan: -MELD score 23 on admission -Follows with liver transplant team as outpatient but reportedly not candidate at present per last PCP note 07/11/23 -No encephalopathy at present -GI consulted for AM given possible SBP + worsening liver disease -Trend CMP, PT/INR (4) Hypomagnesemia: Plan: -Mg 1.4 on admission -Repleting -Monitor Mg (5) Anemia: Plan: -Normocytic anemia, Hgb 9.5, baseline appears 11-12 -Low clinical suspicion for acute bleeding at present -Iron studies pending in AM -Trend CBC (6) Hyponatremia: Plan: -Na 126, baseline appears low 130s -Suspect dilutional from hypervolemia in setting of advanced cirrhosis -Will continue diuresis + fluid restriction -Previously seen by nephrology in last admission for symptomatic severe hyponatremia to 110s -Deferring nephrology consult for now -Trend BMP (7) Abdominal ascites: Plan: -Chronic, biweekly paracentesis at baseline -Continue Bumex, spironolactone -Paracentesis done in ER, awaiting peritoneal fluid studies and GI consulted for AM as above (8) Umbilical hernia: Plan: -Well-healing surgical site, lower likelihood for surgical site infection at present -CTAP with stable post-repair changes (9) Anxiety: Plan: -Chronic, stable -Continue buspirone PRN per home regimen Plan FENGI: Regular, fluid restriction 1500 mL Code status: Full DVT prophylaxis: SCDs, deferring chemoprophylaxis given anemia below baseline Isolation: None Disposition: PCU History of Present Illness Chief Complaint: Fatigue Primary Care Provider: ARIAS Villar Pt is 48 yo M with PMH alcoholic cirrhosis, ascites requiring biweekly paracenteses, chronic hyponatremia, anxiety presenting with weakness. Pt admitted at [facility] 06/15-06/18 for ruptured umbilical hernia, transferred to [facility] [place] acute worsening and underwent emergency surgery, postoperative course complicated by hypotension requiring pressor support and treatment with IV antibiotics for concern of SBP. Pt also had ACOSTA and acute hyponatremia during stay. Discharged home from [facility] on 06/21 with reduced spironolactone + Bumex dosing, ciprofloxacin to complete abx therapy. Pt initially did well after discharge, received paracentesis on 06/26 (3.2L fluid removed) and 07/05 (1.2L fluid removed). Does follow with hepatology and liver transplant team- reportedly per past PCP note on 07/11, he is not a candidate for transplant at present. Pt began to experience worsening weakness, fatigue, malaise, nausea and mild abdominal pain starting on 07/11. Symptoms continued to worsen and pt reports to ER today accompanied by his sister. Pt arrived to ER with mild tachycardia to 100s. Initial evaluation significant for WBC 15, Hgb 9.5, INR 1.3, Na 126, lactate 2.4, Mg 1.4, TB 2.8, ALP 169. CXR with R pleural effusion + atelectasis, chest CT w/ R pleural effusion + midline shift + atelectasis, CTAP with complex loculated abd/pelvic ascites with diffuse peritoneal thickening and concern for possible infectious process, chronic cirrhotic changes of portal HTN with splenomegaly + variceal formation. ER interventions include 1L NSS, ceftriaxone 2g, paracentesis. At present, pt reports feeling similar to pre-paracentesis. Still weak and fatigued, though denies any overt abdominal pain, fever, chills. Allergies Allergy/AdvReac Type Severity Reaction Status Date / Time No Known Allergies Allergy Verified 07/15/23 19:52 Home Medications Medication Instructions Recorded Confirmed Type bumetanide 2 mg tablet 2 mg PO DAILY 06/24/23 07/15/23 History sennosides 8.6 mg capsule (senna) 8.6 mg PO DAILY #30 caps 06/24/23 07/15/23 Rx buspirone 7.5 mg tablet 7.5 mg PO BID 07/15/23 07/15/23 History spironolactone 50 mg tablet 50 mg PO QAM 07/15/23 07/15/23 History Past Med/Surg History Medical History Abdominal ascites Alcohol abuse Alcoholic cirrhosis Anxiety Babesiosis (~09/2020) Elevated liver enzymes Fluid overload Gout hx of Hepatosplenomegaly History of abdominal paracentesis x3--11/23/22, 11/28/22, 12/21/22 Hyponatremia Open wound of umbilical region with complication Tick bite hx of Umbilical hernia Weight loss, abnormal Surgical History No pertinent past surgical history Family History Mother Anxiety Father Heart disease Hypertension Sister Anxiety Other No family history of adverse response to anesthesia Denies family history of Ovarian cancer Prostate cancer Myocardial infarction Breast cancer Colorectal cancer Social History Smoking Status: Never smoker Second Hand Exposure: No; Do You Dip or Chew Tobacco: No; Hx Alcohol Use: Yes Alcohol type: beer Hx Substance Use: No Preferred Language: Indonesian Communication Ability: Effective Visual Impairment: No Limitations Hearing Ability: Normal Amusement Centre Manager Required: No Beliefs That Will Affect Care: None Current Living Situation: Alone Current Living Situation Comment: self current occupational status: employed 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 Other Information That Helps Us Care for You: No Feels Safe at Home: Yes Safety Concerns: Feels Safe At This Time Childhood Exposure to Second-Hand Smoke: No caffeine: Yes (diet pepsi) during the past year weight has: remained stable Dental Care, Regularly: No Physical Activity Frequency: 1-2 Times per Week Seatbelt Use: always Sunscreen Use: Yes Assistive Devices: None Review of Systems Review of Systems: Per HPI Physical Exam Physical Exam: General: well-appearing, no acute distress, laying in bed HEENT: PERRL, EOMI, conjunctivae clear without injection, anicteric sclerae, moist mucous membranes, clear oropharynx without exudate or erythema Neck: supple, trachea midline, no thyromegaly, no JVD, no cervical lymp hadenopathy CV: RRR, normal S1 and S2, no murmurs Resp: CTAB, no increased work of breathing, no crackles or wheezes Abd: Slightly firm, distended w/o fluid wave, nontender, no guarding or rebound, +hepatosplenomegaly. Noted well-healing transverse surgical incision without drainage, erythema or tenderness. MSK: Normal bulk of all four extremities Neuro: AOx3, no focal motor or sensory deficits Skin: no rashes or lesions, warm and dry Ext: no LE peripheral edema or erythema, capillary refill <2s in all four extremities, 2+ LE peripheral pulses b/l Results & Data Results & Data Vital Signs (Past 12 Hours) Vital Signs Temp Pulse Resp BP Pulse Ox O2 Del Method 07/15/23 18:00 106 H 22 107/69 07/15/23 17:28 103 H 26 H 118/67 93 Room Air 07/15/23 16:30 104 H 25 H 134/78 96 Room Air 07/15/23 16:18 105 H 07/15/23 13:03 36.9 C 111 H 20 120/79 98 Room Air Code Status & VTE Plan VTE Prophylaxis Plan VTE Prophylaxis will be ordered: Yes Supervising Physician Co-Signing Physician Notes Attending addendum: I have physically seen this patient, have supervised the medical residents activities, and agree with the H&P unless as otherwise noted. Assessment and Plan: Sepsis- Possibility of SBP Underwent paracentesis and EGD, will follow studies Empiric ceftriaxone and Flagyl IV Follow blood cultures Follow serial CBC with differential, chemistry profile and magnesium levels Large right pleural effusion- Likely secondary to hepatic hydrothorax Consideration for thoracentesis/Pleurx catheter placement will be left to pulmonology Alcoholic cirrhosis- MELD score 23 Follows with liver transplant team No encephalopathy Blood pressure will not tolerate beta-lula Continue bumetanide and spironolactone Consult to gastroenterology Remaining orders and notations as noted Resident Activity Tracking Resident Involvement: Resident Care Provided Care Provided: Adult Hospital Medicine (3) Alcoholic cirrhosis Ascites presence: with ascites Qualified Code(s): K70.31 - Alcoholic cirrhosis of liver with ascites (7) Abdominal ascites Ascites type: due to alcoholic cirrhosis Qualified Code(s): K70.31 - Alcoholic cirrhosis of liver with ascites
[2023-07-15 19:41] LABS: Albumin Peritoneal Fluid < 1.5 gm/dl
[2023-07-15 19:46] LABS: Total Protein Peritoneal Fluid < 3.0 gm/dl
[2023-07-15 20:04] LABS: Appearance Urine Clear (Clear); Bilirubin Urine Negative (Negative); Blood Urine Negative (Negative); Color Urine Dark Yellow; Glucose Urine UA Negative (Negative); Ketones Urine Negative (Negative); Leukocyte Esterase Urine Negative (Negative); Nitrite Urine Negative (Negative); Protein Urine Negative (Negative); Specific Gravity Urine > 1.045 (1.000-1.030); Urobilinogen Urine Negative (Negative); pH Urine 6.5 (4.5-7.5)
[2023-07-15 20:12] LABS: Appearance Peritoneal Fluid Hazy; Color Peritoneal Fluid Orange; Eosinophils, Fluid 1 %; Lymphocytes, Fluid 64 %; Mono,Macrophage,Mesothelial 6 %; Neutrophils, Fluid 29 %; RBC Peritoneal Fluid Auto 24000 /uL; WBC Peritoneal Fluid Auto 247 /ul (0-300)
[2023-07-15] MEDS ORDERED: POLYETHYLENE (MIRALAX) 17 GM PACK PO PRN (20:58)
[2023-07-15] MEDS ORDERED: ONDANSETRON INJ 2 MG/ML 2 ML VIAL IV PRN (20:58)
[2023-07-15] MEDS ORDERED: busPIRone 7.5 MG TAB PO PRN (20:58)
[2023-07-15] MEDS: MAGNESIUM SULFATE / D5W 1 GM/100 ML BAG IV SCH ×2 (21:38→23:32)
[2023-07-15] MEDS: metroNIDAZOLE 500 MG/100 ML BAG IV SCH (22:28)
--- NOTE | 2023-07-15 23:31 | Emergency Department Note ---
History of Present Illness General Chief complaint: Weakness Stated complaint: sob, heart palp Time Seen by Provider: 07/15/23 15:53 History of Present Illness Provider complaint: Abdominal pain Onset (ago): day(s) 5 Maximum Pain Intensity: 7 48-year-old male presents emergency department for abdominal pain. Patient reports he has been having abdominal pain for last 5 days. He reports palpitations and shortness of breath. No chest pain. No headache. Patient reports that he has a history of liver failure. He reports last paracentesis was on July 05. Patient states he had a recent emergency surgery done at [facility] in the last month for a hernia repair. Home Medications Medication Instructions Recorded Confirmed Type bumetanide 2 mg tablet 2 mg PO DAILY 06/24/23 07/15/23 History sennosides 8.6 mg capsule (senna) 8.6 mg PO DAILY #30 caps 06/24/23 07/15/23 Rx buspirone 7.5 mg tablet 7.5 mg PO BID 07/15/23 07/15/23 History spironolactone 50 mg tablet 50 mg PO QAM 07/15/23 07/15/23 History Allergies Allergy/AdvReac Type Severity Reaction Status Date / Time No Known Allergies Allergy Verified 07/15/23 19:52 Past Med/Surg History Medical History Abdominal ascites Alcohol abuse Alcoholic cirrhosis Anxiety Babesiosis (~09/2020) Elevated liver enzymes Fluid overload Gout hx of Hepatosplenomegaly History of abdominal paracentesis x3--11/23/22, 11/28/22, 12/21/22 Hyponatremia Open wound of umbilical region with complication Tick bite hx of Umbilical hernia Weight loss, abnormal Surgical History No pertinent past surgical history Family History Mother Anxiety Father Heart disease Hypertension Sister Anxiety Other No family history of adverse response to anesthesia Denies family history of Ovarian cancer Prostate cancer Myocardial infarction Breast cancer Colorectal cancer Social History Smoking Status: Never smoker Second Hand Exposure: No; Do You Dip or Chew Tobacco: No; Hx Alcohol Use: Yes Alcohol type: beer Hx Substance Use: No Preferred Language: Uzbek Communication Ability: Effective Visual Impairment: No Limitations Hearing Ability: Normal Car 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 Helper Required: No Beliefs That Will Affect Care: None Current Living Situation: Alone Current Living Situation Comment: self current occupational status: employed 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 Other Information That Helps Us Care for You: No Feels Safe at Home: Yes Safety Concerns: Feels Safe At This Time Childhood Exposure to Second-Hand Smoke: No caffeine: Yes (diet pepsi) during the past year weight has: remained stable Dental Care, Regularly: No Physical Activity Frequency: 1-2 Times per Week Seatbelt Use: always Sunscreen Use: Yes Assistive Devices: None Physical Exam Vital Signs Vital Signs - 24 hr 07/15/23 13:03 07/15/23 16:18 07/15/23 16:30 Temperature 36.9 C Temperature Source Temporal Artery Scan Pulse Rate 111 H 105 H 104 H Pulse Rate from SpO2 Sensor 103 H Pulse Rhythm Regular Pulse Strength Normal Respiratory Rate 20 25 H Respiratory Effort / Characteristics Non-Labored Spontaneous Respiratory Depth Normal Respiratory Pattern Regular Blood Pressure 120/79 134/78 Blood Pressure Mean 92 96 Blood Pressure Position Sitting Pulse Oximetry 98 96 Oxygen Delivery Method Room Air Room Air Sepsis Recent Fever Within 48 Hours No Sepsis New/Unexplained Change in Mental Status No Sepsis Action Taken by Nursing No Action Required 07/15/23 17:28 07/15/23 18:00 07/15/23 19:31 Temperature Temperature Source Pulse Rate 103 H 106 H 103 H Pulse Rate from SpO2 Sensor 103 H Pulse Rhythm Pulse Strength Respiratory Rate 26 H 22 22 Respiratory Effort / Characteristics Respiratory Depth Respiratory Pattern Blood Pressure 118/67 107/69 124/75 Blood Pressure Mean 84 81 91 Blood Pressure Position Pulse Oximetry 93 Oxygen Delivery Method Room Air Sepsis Recent Fever Within 48 Hours Sepsis New/Unexplained Change in Mental Status Sepsis Action Taken by Nursing Physical Exam GENERAL: He is oriented to person, place, and time. He appears well-developed and well-nourished. He does not appear distressed. HENT: Exam performed. - Head: Normocephalic and atraumatic. - Right Ear: External ear normal. No mastoid erythema - Left Ear: External ear normal. No mastoid erythema - Mouth/Throat: The oropharynx is clear and moist. No trismus in the jaw. No dental abscesses or uvula swelling. No oropharyngeal exudate or tonsillar abscesses. EYES: Conjunctivae and EOM are normal. Pupils are equal, round, and reactive to light. Right eye exhibits no discharge. Left eye exhibits no discharge. Mild scleral icterus. NECK: Normal range of motion. Neck supple. No JVD present. No rigidity. No tracheal deviation and normal range of motion present. CV: Normal rate, regular rhythm, normal heart sounds and intact distal pulses. There is no peripheral edema. Palpable radial pulses bue. PULM/CHEST: Effort normal and breath sounds normal. No respiratory distress. No stridor. He has no wheezes. He has no rales. ABD: The abdomen is soft. He has mild distension. There is tenderness to palpation of the right lower quadrant. There is no rebound, no guarding. There is a well-healed incision over the patient's transverse abdomen that has no surrounding discharge or erythema. No bleeding. MUSC/SKEL: Normal range of motion. There is no peripheral edema, tenderness or deformity. NEURO: Motor and sensation grossly intact. Procedures Paracentesis Time Out Performed: Yes Indication: possible spontaneous bacterial peritonitis Procedure: diagnostic paracentesis Location: RLQ Local Anesthetic: lidocaine 1% and with epi Amount of anesthesia used (mL): 4 Bedside Ultrasound Used: yes, real-time guidance Preparation: sterile prep and drape Fluid: cloudy and bloody Post Procedure Exam: awake, alert and normal BP Patient Tolerated Procedure: well Complications: none Course Course 1553: The patient was evaluated in room C12. A complete history and physical exam was performed Cardiac monitoring: An order was placed for continuous cardiac monitoring. The monitor shows a rate of 100 with sinus rhythm interpreted by me Patient will be worked up for potential causes of his abdominal pain including but not limited to SBP versus surgical complication. Patient will also be worked up for PE given his palpitations and shortness of breath. 1740: Vital signs stable. Labs show white blood cell count of 15.28. Coagulation studies within normal limits. Sodium 126. Magnesium 1.4. Lactic acid is pending. Spoke with [facility] Dr. Henderson systems transfer officer as well as Dr. Arroyo the patient's surgeon. Images were sent to Dr. Arroyo via LS9. Dr. Arroyo reviewed the scans and thinks that the abdominal pain is not due to any surgical complication but thinks it is more due to SBP. He recommends evaluate the patient for SBP with paracentesis and to make sure that the patient does not have SBP. He states that the new hepatic hydrothorax is related to the abdominal ascites and liver failure. 1850: Diagnostic paracentesis performed with ultrasound guidance, see procedure note. Discussed the case with [facility] Dr. Quiros who will evaluate the patient. Rocephin 2 g given for any possibility of SBP. Lactic acid was elevated at 2.4. 2040: Lactic acid improving. Peritoneal fluid is not consistent with SBP. Patient admitted to the [facility] team. Administered Medications Metronidazole (Flagyl) 500 mg in 100 mls @ 100 mls/hr IV Q8H MELANIE; Protocol Stop: 07/25/23 21:59 Last Admin: 07/15/23 22:28 Dose: 100 mls/hr Documented By: RINA Magnesium Sulfate/Dextrose (Magnesium Sulfate / D5w) 1 gm in 100 mls @ 50 mls/hr IV Q2H MELANIE Stop: 07/16/23 06:57 Last Admin: 07/15/23 21:38 Dose: 50 mls/hr Documented By: RINA Discontinued Medications Ceftriaxone Sodium (Rocephin) 2,000 mg in 70 mls @ 140 mls/hr IV NOW STA Stop: 07/15/23 16:44 Last Infusion: 07/15/23 19:39 Dose: 0 mls/hr Documented By: Admin: 07/15/23 18:30 Dose: 140 mls/hr Documented By: TORI Sodium Chloride (Nss 1000ml) 1,000 mls @ 125 mls/hr IV .Q8H MELANIE Stop: 08/14/23 16:14 Last Infusion: 07/15/23 21:00 Dose: 0 mls/hr Documented By: Admin: 07/15/23 17:28 Dose: 125 mls/hr Documented By: SABINO Ioversol (Ioversol 350 Mg 125ml Prefilled Syringe) 115 ml IV ONCE ONE Stop: 07/15/23 16:47 Last Admin: 07/15/23 16:47 Dose: 115 ml Documented By: SHRUTHI Lidocaine/Epinephrine (Lidocaine 1%/Epinephrine 1:100,000 20 Ml Vial) Confirm Administered Dose 1 ml .ROUTE .STK-MED ONE Stop: 07/15/23 18:17 Last Admin: 07/15/23 19:12 Dose: 1 ml Documented By: DENISE Medical Decision Making Medical Records Attestation: I reviewed the patient's medical records. External medical records were reviewed. Patient was transferred to [facility] for ruptured umbilical hernia. Patient was taken to the operating room by Dr. Arroyo. He had the hernia repaired. Laboratory Data Attestation: I reviewed the patient's lab results. 07/15/23 13:38 07/15/23 13:38 Lab Results 07/15/23 07/15/23 07/15/23 Range/Units 13:38 13:38 13:38 WBC 15.28 H (4.8-10.8) K/ul RBC 2.65 L (4.70-6.10) M/uL Hgb 9.5 L (14.0-18.0) g/dl Hct 26.3 L (42.0-52.0) % MCV 99.2 (80.0-100.0) fL MCH 35.8 H (25.0-34.0) pg MCHC 36.1 H (32.0-36.0) g/dL RDW Std Deviation 51.5 H (36.4-46.3) fL RDW Coeff of Coby 14.5 (11.5-14.5) % Plt Count 287 (130-400) K/uL MPV 8.1 L (9.4-12.4) fL Immature Gran % (Auto) 2.0 % Neut % (Auto) 77.5 % Lymph % (Auto) 5.7 % Glynn % (Auto) 14.2 % Eos % (Auto) 0.1 % Baso % (Auto) 0.5 % Neut # (Auto) 11.85 H (1.40-6.50) K/uL Lymph # (Auto) 0.87 L (1.20-3.40) K/uL Glynn # (Auto) 2.17 H (0.11-0.59) K/uL Eos # (Auto) 0.01 (0.00-0.50) K/uL Baso # (Auto) 0.08 (0.00-0.20) K/uL Immature Gran # (Auto) 0.30 H (0.01-0.20) K/uL PT 14.3 H (9.0-12.0) Seconds INR 1.3 H (0.9-1.1) APTT 30.2 (21.0-31.0) Seconds PTT Ratio 1.1 Sodium 126 L (136-145) mmol/L Potassium 3.7 (3.5-5.1) mmol/L Chloride 94 L (98-107) mmol/L Carbon Dioxide 24 (21-32) mmol/L Anion Gap 8 (3-11) BUN 15 (6-23) mg/dl Creatinine 0.60 (0.6-1.4) mg/dl Est Cr Clr Drug Dosing 173.9 ml/min Est GFR ( Amer) 137.8 ml/min Est GFR (Non-Af Amer) 118.9 ml/min BUN/Creatinine Ratio 25.0 H (10-20) Glucose 130 H (70-99(Fasting)) mg/dl Lactate (0.4-2.0) mmol/L Calcium 8.1 L (8.6-10.3) mg/dl Magnesium 1.4 L (1.7-2.4) mg/dl Total Bilirubin 2.8 H (0.2-1.0) mg/dl AST 26 (13-39) U/L ALT 14 (7-52) U/L Alkaline Phosphatase 169 H (34-104) U/L Troponin I High Sens 10.5 (0-20) pg/ml Total Protein 6.6 (6.0-8.3) gm/dl Albumin 2.7 L (3.4-5.0) gm/dl Globulin 3.9 (2.5-4.0) gm/dl Albumin/Globulin Ratio 0.7 L (0.9-2) TSH (0.300-4.500) uIu/ml Fluid Neutrophils % % Fluid Lymphocytes % % Fluid Eosinophils % % Fluid Meso/Macro/Glynn % % Fluid Comment Peritoneal Color Peritoneal Appearance Peritoneal WBC (Auto) (0-300) /ul Peritoneal RBC (Auto) /uL Peritoneal Tot Protein gm/dl Peritoneal Albumin gm/dl SARS-CoV-2, RNA, NAAT (NEGATIVE) 07/15/23 07/15/23 07/15/23 Range/Units 13:38 18:03 18:40 WBC (4.8-10.8) K/ul RBC (4.70-6.10) M/uL Hgb (14.0-18.0) g/dl Hct (42.0-52.0) % MCV (80.0-100.0) fL MCH (25.0-34.0) pg MCHC (32.0-36.0) g/dL RDW Std Deviation (36.4-46.3) fL RDW Coeff of Coby (11.5-14.5) % Plt Count (130-400) K/uL MPV (9.4-12.4) fL Immature Gran % (Auto) % Neut % (Auto) % Lymph % (Auto) % Glynn % (Auto) % Eos % (Auto) % Baso % (Auto) % Neut # (Auto) (1.40-6.50) K/uL Lymph # (Auto) (1.20-3.40) K/uL Glynn # (Auto) (0.11-0.59) K/uL Eos # (Auto) (0.00-0.50) K/uL Baso # (Auto) (0.00-0.20) K/uL Immature Gran # (Auto) (0.01-0.20) K/uL PT (9.0-12.0) Seconds INR (0.9-1.1) APTT (21.0-31.0) Seconds PTT Ratio Sodium (136-145) mmol/L Potassium (3.5-5.1) mmol/L Chloride (98-107) mmol/L Carbon Dioxide (21-32) mmol/L Anion Gap (3-11) BUN (6-23) mg/dl Creatinine (0.6-1.4) mg/dl Est Cr Clr Drug Dosing ml/min Est GFR ( Amer) ml/min Est GFR (Non-Af Amer) ml/min BUN/Creatinine Ratio (10-20) Glucose (70-99(Fasting)) mg/dl Lactate 2.4 H* (0.4-2.0) mmol/L Calcium (8.6-10.3) mg/dl Magnesium (1.7-2.4) mg/dl Total Bilirubin (0.2-1.0) mg/dl AST (13-39) U/L ALT (7-52) U/L Alkaline Phosphatase (34-104) U/L Troponin I High Sens (0-20) pg/ml Total Protein (6.0-8.3) gm/dl Albumin (3.4-5.0) gm/dl Globulin (2.5-4.0) gm/dl Albumin/Globulin Ratio (0.9-2) TSH 2.001 (0.300-4.500) uIu/ml Fluid Neutrophils % 29 % Fluid Lymphocytes % 64 % Fluid Eosinophils % 1 % Fluid Meso/Macro/Glynn % 6 % Fluid Comment Peritoneal Color [place] Peritoneal Appearance Hazy Peritoneal WBC (Auto) 247 (0-300) /ul Peritoneal RBC (Auto) 53014 /uL Peritoneal Tot Protein gm/dl Peritoneal Albumin gm/dl SARS-CoV-2, RNA, NAAT (NEGATIVE) 07/15/23 07/15/23 Range/Units 18:40 19:32 WBC (4.8-10.8) K/ul RBC (4.70-6.10) M/uL Hgb (14.0-18.0) g/dl Hct (42.0-52.0) % MCV (80.0-100.0) fL MCH (25.0-34.0) pg MCHC (32.0-36.0) g/dL RDW Std Deviation (36.4-46.3) fL RDW Coeff of Coby (11.5-14.5) % Plt Count (130-400) K/uL MPV (9.4-12.4) fL Immature Gran % (Auto) % Neut % (Auto) % Lymph % (Auto) % Glynn % (Auto) % Eos % (Auto) % Baso % (Auto) % Neut # (Auto) (1.40-6.50) K/uL Lymph # (Auto) (1.20-3.40) K/uL Glynn # (Auto) (0.11-0.59) K/uL Eos # (Auto) (0.00-0.50) K/uL Baso # (Auto) (0.00-0.20) K/uL Immature Gran # (Auto) (0.01-0.20) K/uL PT (9.0-12.0) Seconds INR (0.9-1.1) APTT (21.0-31.0) Seconds PTT Ratio Sodium (136-145) mmol/L Potassium (3.5-5.1) mmol/L Chloride (98-107) mmol/L Carbon Dioxide (21-32) mmol/L Anion Gap (3-11) BUN (6-23) mg/dl Creatinine (0.6-1.4) mg/dl Est Cr Clr Drug Dosing ml/min Est GFR ( Amer) ml/min Est GFR (Non-Af Amer) ml/min BUN/Creatinine Ratio (10-20) Glucose (70-99(Fasting)) mg/dl Lactate (0.4-2.0) mmol/L Calcium (8.6-10.3) mg/dl Magnesium (1.7-2.4) mg/dl Total Bilirubin (0.2-1.0) mg/dl AST (13-39) U/L ALT (7-52) U/L Alkaline Phosphatase (34-104) U/L Troponin I High Sens (0-20) pg/ml Total Protein (6.0-8.3) gm/dl Albumin (3.4-5.0) gm/dl Globulin (2.5-4.0) gm/dl Albumin/Globulin Ratio (0.9-2) TSH (0.300-4.500) uIu/ml Fluid Neutrophils % % Fluid Lymphocytes % % Fluid Eosinophils % % Fluid Meso/Macro/Glynn % % Fluid Comment Peritoneal Color Peritoneal Appearance Peritoneal WBC (Auto) (0-300) /ul Peritoneal RBC (Auto) /uL Peritoneal Tot Protein < 3.0 gm/dl Peritoneal Albumin < 1.5 gm/dl SARS-CoV-2, RNA, NAAT NEGATIVE (NEGATIVE) Imaging Data Attestation: I personally reviewed and interpreted this imaging study as follows: My Impression: Right-sided pleural effusion Radiologist's Impression: Chest X-Ray 07/15/23 13:06 SINGLE VIEW CHEST CLINICAL HISTORY: Generalized weakness. FINDINGS: A PA chest radiograph is compared to study dated 11/22/2022. The cardiomediastinal silhouette is unremarkable. There is chronic elevation of the right hemidiaphragm. There is a small right pleural effusion with right basilar atelectasis. The left lung appears clear. No pneumothorax is seen. The bony thorax is grossly intact. IMPRESSION: Right pleural effusion with associated right basilar atelectasis. ACT 112: Negative or not required by law. Electronically signed by: Juanito Austin M.D. 07/15/2023 1:41 PM Abdomen/Pelvis CT 07/15/23 16:12 CT OF THE ABDOMEN AND PELVIS WITH CONTRAST CLINICAL HISTORY: Abdominal pain status post hernia repair. COMPARISON STUDY: CT of the abdomen and pelvis December 18, 2022. TECHNIQUE: Following IV administration of 115 mL of Optiray, axial images of the abdomen and pelvis were obtained from the lung bases to the proximal femurs. Images were reviewed in the axial, sagittal, and coronal planes. IV contrast was administered without complication. Automated exposure control was utilized for the study. A dose lowering technique was utilized adhering to the principles of ALARA. FINDINGS: Please note that the chest CT will be reported separately. A large right pleural effusion has developed since abdominal CT of June 17, 2023. Right middle lobe and right lower lobe airspace opacity favors atelectasis. No pneumatosis, free air or portal venous gas is present. Interval umbilical hernia repair is noted. Moderate loculated abdominal and pelvic ascites is present. There is diffuse peritoneal thickening and enhancement. Loculated perihepatic component is noted. Suspected septations are noted within portions of the ascites. Small amount of layering hyperdense material within the pelvis is present. The liver is cirrhotic. No hepatic lesions are identified. Splenomegaly and varices formation are unchanged. Rectal wall thickening as well as wall thickening of portions of the colon and multiple small bowel loops is again noted. This was shown on prior exams and is likely related to cirrhosis. The main, left and right portal veins are patent. The splenic vein as well as the superior mesenteric vein are patent. There is no hydronephrosis. Adrenal glands, kidneys and pancreas are unremarkable. Bladder wall thickening is noted. IMPRESSION: 1. Moderate complex loculated abdominal and pelvic ascites with diffuse peritoneal thickening and enhancement and a small amount of layering hyperdense material within the pelvis. Sterility cannot be assessed by CT however the findings raise the possibility of an infectious process such as peritonitis and could be correlated with paracentesis results. 2. Cirrhosis with manifestations of portal hypertension including splenomegaly and varices formation. Wall thickening of the rectum, portions of the colon and multiple small bowel loops is likely related to cirrhosis. 3. Interval development of a large right pleural effusion. This may reflect a hepatic hydrothorax. 4. Status post interval umbilical hernia repair. ACT 112: Negative or not required by law. Electronically signed by: Kiet Pena M.D. 07/15/2023 5:13 PM Chest CTA 07/15/23 16:12 CT angio chest PE protocol CLINICAL HISTORY: cp sob s/p hernia repair TECHNIQUE: Multidetector row helical CT of the chest was performed with angiographic protocol. Coronal and sagittal reformations were obtained. Coronal and sagittal MIPS were obtained from the axial data set and were submitted for review. Automated dose lowering techniques and/or adjustment according to patient size were utilized for this exam. CT DOSE: 2311.50 mGy.cm Comparison: None available at the time of this dictation. FINDINGS: Lungs and pleura: Large right pleural effusion is seen. Heart and pericardium: Heart size is normal. No pericardial effusion. Vessels: No evidence of pulmonary embolism. Mediastinum and jean carlos: Unremarkable. Chest wall and lower neck: Unremarkable. Abdomen: For findings below the diaphragm, please refer to CT of the abdomen dated the same. Bones: Degenerative changes in the thoracic spine. IMPRESSION: 1. No evidence of pulmonary embolus. 2. Large right pleural effusion with midline shift and right atelectasis. ACT 112: Negative or not required by law. Electronically signed by: Jose Guadalupe Peguero M.D. 07/15/2023 5:08 PM ECG Data Attestation: I personally reviewed and interpreted this ECG as follows: Rate (beats per minute): 110 Rhythm: + sinus tachycardia ECG Intervals/blocks: + Normal ME and + Normal QT-c ECG ST segments: + Normal ST segments Additional Comments: QRS 76 MDM Narrative 1553: The patient was evaluated in room C12. A complete history and physical exam was performed Cardiac monitoring: An order was placed for continuous cardiac monitoring. The monitor shows a rate of 100 with sinus rhythm interpreted by me Patient will be worked up for potential causes of his abdominal pain including but not limited to SBP versus surgical complication. Patient will also be worked up for PE given his palpitations and shortness of breath. 1740: Vital signs stable. Labs show white blood cell count of 15.28. Coagulation studies within normal limits. Sodium 126. Magnesium 1.4. Lactic acid is pending. Spoke with [facility] Dr. Henderson systems transfer officer as well as Dr. Arroyo the patient's surgeon. Images were sent to Dr. Arroyo via LS9. Dr. Arroyo reviewed the scans and thinks that the abdominal pain is not due to any surgical complication but thinks it is more due to SBP. He recommends evaluate the patient for SBP with paracentesis and to make sure that the patient does not have SBP. He states that the new hepatic hydrothorax is related to the abdominal ascites and liver failure. 1850: Diagnostic paracentesis performed with ultrasound guidance, see procedure note. Discussed the case with [facility] Dr. Quiros who will evaluate the patient. Rocephin 2 g given for any possibility of SBP. Lactic acid was elevated at 2.4. 2039: Lactic acid improving. Peritoneal fluid is not consistent with SBP. Patient admitted to the [facility] team. Impression & Plan Hyponatremia, Jaundice of recent onset, Alcoholic cirrhosis, Abdominal ascites, Hypomagnesemia, Hydrothorax Discharge Plan Visit Data Chief Complaint: Weakness Stated Complaint: sob, heart palp ED Provider: Rob Smiley Discharge Problem: Hyponatremia, Jaundice of recent onset, Alcoholic cirrhosis, Abdominal ascites, Hypomagnesemia, Hydrothorax Patient Disposition: Admitted As Inpatient Discharge Instructions Interventions: ED Discharge Assessment Last Done: 07/15/23 20:32
[2023-07-15] MEDS: MELATONIN 3 MG TAB PO PRN (23:32)
[2023-07-16] MEDS: MAGNESIUM SULFATE / D5W 1 GM/100 ML BAG IV SCH ×3 (01:46→06:31)
[2023-07-16] MEDS: metroNIDAZOLE 500 MG/100 ML BAG IV SCH ×3 (06:31→23:24)
[2023-07-16 06:55] LABS: Basophils # (auto) 0.09 K/uL (0.00-0.20); Basophils % (auto) 0.7 %; Eosinophils # (auto) 0.01 K/uL (0.00-0.50); Eosinophils % (auto) 0.1 %; Hematocrit (blood only) 25.4 % (42.0-52.0); Immature Granulocytes # (auto) 0.26 K/uL (0.01-0.20); Immature Granulocytes % (auto) 1.9 %; Lymphocytes # (auto) 1.03 K/uL (1.20-3.40); Lymphocytes % (auto) 7.6 %; Mean Corpuscular Hemoglobin 35.7 pg (25.0-34.0); Mean Corpuscular Hgb Conc 35.4 g/dL (32.0-36.0); Mean Corpuscular Volume 100.8 fL (80.0-100.0); Monocytes # (auto) 2.18 K/uL (0.11-0.59); Neutrophils # (auto) 10.04 K/uL (1.40-6.50); Neutrophils % (auto) 73.7 %; Platelet Count 265 K/uL (130-400); RDW Coefficient of Variation 15.5 % (11.5-14.5); RDW Standard Deviation 56.1 fL (36.4-46.3); Red Blood Count 2.52 M/uL (4.70-6.10); White Blood Count 13.61 K/ul (4.8-10.8)
[2023-07-16 07:01] LABS: INR 1.3 (0.9-1.1)
[2023-07-16 07:23] LABS: Albumin Globulin Ratio 0.7 (0.9-2); Albumin Level 2.3 gm/dl (3.4-5.0); BUN Creatinine Ratio 21.1 (10-20); Calcium 7.7 mg/dl (8.6-10.3); Creatinine Clr Calc Pharmacy 168.8 ml/min; Est GFR (African American) 140.7 ml/min; Est GFR (Non-African American) 121.4 ml/min; Globulin 3.4 gm/dl (2.5-4.0); Magnesium 2.4 mg/dl (1.7-2.4); Potassium 3.9 mmol/L (3.5-5.1); Total Protein 5.7 gm/dl (6.0-8.3)
[2023-07-16 07:42] LABS: Ferritin 911.7 ng/ml (8-388)
--- NOTE | 2023-07-16 08:34 | Hospitalist Progress Note ---
Date of Service July 16, 2023 Assessment & Plan (1) Sepsis: Plan: -WBC 15 with tachycardia, met SIRS criteria on admission -Lactate repeat 2.0, WBC now 13.6 -SBP is suspected source of infection, see below -Did not receive full sepsis fluids due to ascites and large right pleural effusion -BCx and ascitic fluid cultures pending -Sepsis has resolved, still treating intraabdominal infection see below (2) SBP (spontaneous bacterial peritonitis): Plan: -Presented with abd pain, subjective fevers, evidence of sepsis on admission -CTAP demonstrated moderate ascites with peritoneal thickening and loculation concerning for SBP -Ascitic fluid with elevated WBCs, peritoneal culture with GNR, sensitivities to follow, BCx NGTD continue to monitor -Continue Rocephin/Flagyl x5-7 days, with SBP ppx Abx on discharge -GI consulted and appreciate recommendations, case discussed with Letty Taylor [employer] HELPER: albumin 137.5gm today and 87.5gm on 07/18, with repeat diagnostic/therapeutic paracentesis on 07/18 with cytology and cultures (3) Pleural effusion: Plan: -R pleural effusion with midline shift noted on CXR/chest CT -Stable respiratory status on RA, some cough but no complaints of SOB -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, will defer pulmonology consult for now given pt's lack of respiratory symptoms and stability on RA -Continue diuresis with Bumex, spironolactone, albumin added today as above (4) Hyponatremia: Plan: -Chronic problem, Na 127 today, baseline appears low 130s -Suspect dilutional from hypervolemia in setting of advanced cirrhosis -Will continue diuresis and low sodium diet per GI, monitor and fluid restrict if Na <125 -Previously seen by Nephrology in last admission for symptomatic severe hyponatremia to 110s -Deferring Nephrology consult for now (5) Alcoholic cirrhosis: Plan: -MELD score 23 on admission -Follows with liver transplant team as outpatient but reportedly not candidate at present per last PCP note 07/11/23 -No encephalopathy at present -Trend CMP, PT/INR (6) Anemia: Plan: -Normocytic anemia, Hgb 9.0, baseline appears 11-12 -Low clinical suspicion for acute bleeding at present -Iron studies suggest anemia of chronic disease -Trend CBC (7) Hypomagnesemia: Plan: -Mg 1.4 on admission, resolved to 2.4 today (8) Abdominal ascites: Plan: -Next paracentesis ordered for 07/18 -Continue Bumex, spironolactone (9) Umbilical hernia: Plan: -Well-healing surgical site, not impossible that patient has infection 2/2 hernia surgery however incision looks well healed and not tender or erythematous, continue to monitor with IV Abx -CTAP with stable post-repair changes (10) Anxiety: Plan: -Chronic, stable -Continue buspirone PRN per home regimen Plan FENGI: Low Na Code status: Full DVT prophylaxis: SCDs, deferring chemoprophylaxis given anemia significantly below baseline Disposition: PCU Admission and Anticipated Discharge Date Admission Date: July 15, 2023 Subjective No overnight events, feels a bit better, less feverish, less fatigued though still with some fatigue. Reports the abdominal pain he had yesterday is res olved. He denies worsening in abdominal distention. Denies chest pain or SOB, endorses intermittent cough. Physical Exam Constitutional: WD/WN, vitals as above Eyes: + scleral abnormality (bilateral icterus) Respiratory: lungs CTA bilaterally, no wheezes or crackles Cardiovascular: RRR no murmurs Bilateral LE edema Gastrointestinal (Abdomen): Inspection/Auscultation: normal bowel sounds and + abdominal surgical scar Percussion/Palpation: + ascites and + abdomen firm; abdomen nontender, no guarding and abdomen not rigid Skin: + jaundice Psychiatric: A+Ox3, euthymic affect Results & Data Results & Data Vital Signs (Past 12 Hours) Vital Signs Temp Pulse Pulse Resp BP Pulse Ox O2 Del Method 07/16/23 08:02 94 H 07/16/23 07:37 36.8 C 98 H 20 98/62 L 91 Room Air 07/16/23 03:44 36.7 C 101 H 16 100/62 90 Room Air 07/15/23 21:00 110 H 07/15/23 23:18 36.8 C 102 H 16 94/56 L 93 Room Air 07/15/23 20:40 37 C 105 H 20 116/71 93 Room Air PG Care Time/CCT Total # of Minutes Spent Total Time Spent with Patient: Total time spent is greater than 50% in coordination of care (as documented) at patient's floor/unit and/or counseling patient: Coding Level of Care Code 47495 SUB INP/OBS CARE MIN Diagnoses Sepsis A41.9 SBP (spontaneous bacterial peritonitis) K65.2 Pleural effusion J90 Hyponatremia E87.1 Alcoholic cirrhosis K70.30 Anemia D64.9 Hypomagnesemia E83.42 Abdominal ascites R18.8 Umbilical hernia K42.9 Anxiety F41.9
[2023-07-16] MEDS: BUMETANIDE 1 MG TAB PO SCH (09:05)
[2023-07-16] MEDS: SPIRONOLACTONE 25 MG TAB PO SCH (09:05)
[2023-07-16] MEDS ORDERED: ACETAMINOPHEN 500 MG TAB PO PRN (09:38)
--- NOTE | 2023-07-16 10:15 | Gastrointestinal Consultation ---
Date of Consultation July 16, 2023 Assessment & Plan (1) Abdominal ascites: (2) Alcoholic cirrhosis: (3) SBP (spontaneous bacterial peritonitis): (4) Alcohol abuse: Plan Patient is a 48 y.o. male with decompensated ETOH cirrhosis with associated portal HTN and refractory ascites admitted with sepsis, abnormal CT imaging, abdominal pain, fatigue, and peritoneal fluid with gram negative bacilli consistent with SBP. He did have a peritoneal WBC count of 247, but is unclear if this was done pre or post initiation of IV antibiotics. Peritoneal WBC on 07/05 was 356. MELD-Na 23. 1. Continue IV abx treatment with Ceftriaxone/Flagyl for 5-7 days. Will need SBP prophylactic abx upon discharge. 2. IV albumin 1.5g/kg today, then IV albumin 1g/kg on day 3. 3. Repeat diagnostic/therapeutic paracentesis in 48 hours. 4. Recommend 2g sodium restricted diet. Fluid restriction only if serum sodium <125. 5. Continue diuretics with Bumex and Aldactone as prescribed. 6. Await results of blood cultures and final peritoneal cx. Adjust Abx coverage if appropriate. 7. Will continue to follow clinical course and advise as appropriate. 8. Strict ETOH avoidance. Ongoing outpatient follow up with hepatology upon discharge. Thank you for allowing us to participate in the care of this patient. If you have any questions or concerns, please do not hesitate to contact us. Supervising Physician Co-Signing Physician Notes Agree with ARIAS Gray as above Abd: Soft, NT, Distended, +BS Continue current therapy and supportive care Care plan detailed above and discussed with ARIAS Gray History of Present Illness Reason for Consultation: Cirrhosis/Possible SBP Requesting Physician: Dr. Roblero Attending Physician: Mayda Espinoza DO History of Present Illness Patient is a 48 y.o. male with a history of ETOH Cirrhosis with portal hypertension and refractory ascites being co-managed by [facility] transplant hepatology. He was evaluated by Dr. Berrios on 06/21/23 and deemed not a candidate for TIPS. States he did see Dr. Munson last week for a follow up. No record is available to review at this time. States he presented to the ER due to worsening fatigue and abdominal pain. He is status post abdominal hernia repair for a ruptured umbilical hernia on 06/18/23 at [facility]. States he was concerned that "something went wrong with the surgery" and presented to the ER yesterday. On admission, he was found to have a leukocytosis of 15.28, hemoglobin 9.5, hematocrit 26.3, sodium 126, potassium 3.7, TB 2.8, AST 26, ALT 14, ALP 169, PT 14.3, INR 1.3, BUN 15, and creatinine 0.60. He did undergo a CT a/p which demonstrated moderate ascites with peritoneal thickening concerning for SBP. Diagnostic paracentesis was performed. Peritoneal WBC of 247 (unclear pre or post initiation of Abx) and preliminary gram stain with gram negative bacilli. He has been empirically started on IV Ceftriaxone and Flagyl. He has been placed on a fluid restriction. Regular diet. Blood cultures are pending. Currently, he denies any abdominal pain or tenderness. Continues with symptoms of mild fatigue. Allergies Allergy/AdvReac Type Severity Reaction Status Date / Time No Known Allergies Allergy Verified 07/15/23 19:52 Home Medications Medication Instructions Recorded Confirmed Type bumetanide 2 mg tablet 2 mg PO DAILY 06/24/23 07/15/23 History sennosides 8.6 mg capsule (senna) 8.6 mg PO DAILY #30 caps 06/24/23 07/15/23 Rx buspirone 7.5 mg tablet 7.5 mg PO BID 07/15/23 07/15/23 History spironolactone 50 mg tablet 50 mg PO QAM 07/15/23 07/15/23 History Patient History Medical History Abdominal ascites Alcohol abuse Alcoholic cirrhosis Anxiety Babesiosis (~09/2020) Elevated liver enzymes Fluid overload Gout hx of Hepatosplenomegaly History of abdominal paracentesis x3--11/23/22, 11/28/22, 12/21/22 Hyponatremia Open wound of umbilical region with complication Tick bite hx of Umbilical hernia Weight loss, abnormal Surgical History No pertinent past surgical history Family History Mother Anxiety Father Heart disease Hypertension Sister Anxiety Other No family history of adverse response to anesthesia Denies family history of Ovarian cancer Prostate cancer Myocardial infarction Breast cancer Colorectal cancer Social History Smoking Status: Never smoker Second Hand Exposure: No; Do You Dip or Chew Tobacco: No; Hx Alcohol Use: Yes Alcohol type: beer Hx Substance Use: No Preferred Language: Tajik Communication Ability: Effective Visual Impairment: No Limitations Hearing Ability: Normal Developer Prover Upholstering Required: No Beliefs That Will Affect Care: None Current Living Situation: Alone Current Living Situation Comment: self current occupational status: employed 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 Other Information That Helps Us Care for You: No Feels Safe at Home: Yes Safety Concerns: Feels Safe At This Time Childhood Exposure to Second-Hand Smoke: No caffeine: Yes (diet pepsi) during the past year weight has: remained stable Dental Care, Regularly: No Physical Activity Frequency: 1-2 Times per Week Seatbelt Use: always Sunscreen Use: Yes Assistive Devices: None Review of Systems Constitutional: as per Subjective / HPI Gastrointestinal: as per Subjective / HPI Musculoskeletal: + swelling Physical Exam Constitutional: + frail appearing; no acute distress Eyes: + scleral abnormality (bilateral icterus) and EOM intact bilaterally Respiratory: normal respiratory effort, lungs clear to auscultation Cardiovascular: Rate/Rhythm: regular rate and regular rhythm Gastrointestinal (Abdomen): Inspection/Auscultation: normal bowel sounds and + abdominal surgical scar Percussion/Palpation: + ascites and + abdomen firm; abdomen nontender, no guarding and abdomen not rigid Musculoskeletal: Extremities: + lower leg abnormality Bilateral (edema) Skin: + jaundice Psychiatric: A+Ox3, euthymic affect Results & Data Vital Signs (Past 12 Hours) Vital Signs Temp Pulse Pulse Resp BP Pulse Ox O2 Del Method 07/16/23 08:02 94 H 07/16/23 07:37 36.8 C 98 H 20 98/62 L 91 Room Air 07/16/23 03:44 36.7 C 101 H 16 100/62 90 Room Air 07/15/23 23:18 36.8 C 102 H 16 94/56 L 93 Room Air Diagnostic Findings Laboratory Results WBC 13.61 K/ul (4.8-10.8) H 07/16/23 06:08 RBC 2.52 M/uL (4.70-6.10) L 07/16/23 06:08 Hgb 9.0 g/dl (14.0-18.0) L 07/16/23 06:08 Hct 25.4 % (42.0-52.0) L 07/16/23 06:08 MCV 100.8 fL (80.0-100.0) H 07/16/23 06:08 MCH 35.7 pg (25.0-34.0) H 07/16/23 06:08 MCHC 35.4 g/dL (32.0-36.0) 07/16/23 06:08 RDW Std Deviation 56.1 fL (36.4-46.3) H 07/16/23 06:08 RDW Coeff of Coby 15.5 % (11.5-14.5) H 07/16/23 06:08 Plt Count 265 K/uL (130-400) 07/16/23 06:08 MPV 8.0 fL (9.4-12.4) L 07/16/23 06:08 Immature Gran % (Auto) 1.9 % 07/16/23 06:08 Neut % (Auto) 73.7 % 07/16/23 06:08 Lymph % (Auto) 7.6 % 07/16/23 06:08 [place] % (Auto) 16.0 % 07/16/23 06:08 Eos % (Auto) 0.1 % 07/16/23 06:08 Baso % (Auto) 0.7 % 07/16/23 06:08 Neut # (Auto) 10.04 K/uL (1.40-6.50) H 07/16/23 06:08 Lymph # (Auto) 1.03 K/uL (1.20-3.40) L 07/16/23 06:08 [place] # (Auto) 2.18 K/uL (0.11-0.59) H 07/16/23 06:08 Eos # (Auto) 0.01 K/uL (0.00-0.50) 07/16/23 06:08 Baso # (Auto) 0.09 K/uL (0.00-0.20) 07/16/23 06:08 Immature Gran # (Auto) 0.26 K/uL (0.01-0.20) H 07/16/23 06:08 PT 14.0 Seconds (9.0-12.0) H 07/16/23 06:08 INR 1.3 (0.9-1.1) H 07/16/23 06:08 APTT 30.2 Seconds (21.0-31.0) 07/15/23 13:38 PTT Ratio 1.1 07/15/23 13:38 Sodium 127 mmol/L (136-145) L 07/16/23 06:08 Potassium 3.9 mmol/L (3.5-5.1) 07/16/23 06:08 Chloride 97 mmol/L (98-107) L 07/16/23 06:08 Carbon Dioxide 27 mmol/L (21-32) 07/16/23 06:08 Anion Gap 3 (3-11) 07/16/23 06:08 BUN 12 mg/dl (6-23) 07/16/23 06:08 Creatinine 0.57 mg/dl (0.6-1.4) L 07/16/23 06:08 Est Cr Clr Drug Dosing 168.8 ml/min 07/16/23 06:08 Est GFR ( Amer) 140.7 ml/min 07/16/23 06:08 Est GFR (Non-Af Amer) 121.4 ml/min 07/16/23 06:08 BUN/Creatinine Ratio 21.1 (10-20) H 07/16/23 06:08 Glucose 117 mg/dl (70-99(Fasting)) H 07/16/23 06:08 Lactate 2.0 mmol/L (0.4-2.0) 07/15/23 20:13 Calcium 7.7 mg/dl (8.6-10.3) L 07/16/23 06:08 Magnesium 2.4 mg/dl (1.7-2.4) 07/16/23 06:08 Iron 24 mcg/dl (35-175) L 07/16/23 06:08 Ferritin 911.7 ng/ml (8-388) H 07/16/23 06:08 Total Bilirubin 2.0 mg/dl (0.2-1.0) H 07/16/23 06:08 AST 25 U/L (13-39) 07/16/23 06:08 ALT 12 U/L (7-52) 07/16/23 06:08 Alkaline Phosphatase 153 U/L (34-104) H 07/16/23 06:08 Troponin I High Sens 10.5 pg/ml (0-20) 07/15/23 13:38 Total Protein 5.7 gm/dl (6.0-8.3) L 07/16/23 06:08 Albumin 2.3 gm/dl (3.4-5.0) L 07/16/23 06:08 Globulin 3.4 gm/dl (2.5-4.0) 07/16/23 06:08 Albumin/Globulin Ratio 0.7 (0.9-2) L 07/16/23 06:08 TSH 2.001 uIu/ml (0.300-4.500) 07/15/23 13:38 Urine Color Dark Yellow 07/15/23 19:53 Urine Appearance Clear (Clear) 07/15/23 19:53 Urine pH 6.5 (4.5-7.5) 07/15/23 19:53 Ur Specific [place] > 1.045 (1.000-1.030) H 07/15/23 19:53 Urine Protein Negative (Negative) 07/15/23 19:53 Urine Glucose (UA) Negative (Negative) 07/15/23 19:53 Urine Ketones Negative (Negative) 07/15/23 19:53 Urine Blood Negative (Negative) 07/15/23 19:53 Urine Nitrite Negative (Negative) 07/15/23 19:53 Urine Bilirubin Negative (Negative) 07/15/23 19:53 Urine Urobilinogen Negative (Negative) 07/15/23 19:53 Ur Leukocyte Esterase Negative (Negative) 07/15/23 19:53 Fluid Neutrophils % 29 % 07/15/23 18:40 Fluid Lymphocytes % 64 % 07/15/23 18:40 Fluid Eosinophils % 1 % 07/15/23 18:40 Fluid [place] % 6 % 07/15/23 18:40 Fluid Comment 07/15/23 18:40 Peritoneal Color [place] 07/15/23 18:40 Peritoneal Appearance Hazy 07/15/23 18:40 Peritoneal WBC (Auto) 247 /ul (0-300) 07/15/23 18:40 Peritoneal RBC (Auto) 63552 /uL 07/15/23 18:40 Peritoneal Tot Protein < 3.0 gm/dl 07/15/23 18:40 Peritoneal Albumin < 1.5 gm/dl 07/15/23 18:40 SARS-CoV-2, RNA, NAAT NEGATIVE (NEGATIVE) 07/15/23 19:32 Impressions Chest X-Ray 07/15/23 13:06 SINGLE VIEW CHEST CLINICAL HISTORY: Generalized weakness. FINDINGS: A PA chest radiograph is compared to study dated 11/22/2022. The cardiom ediastinal silhouette is unremarkable. There is chronic elevation of the right hemidiaphragm. There is a small right pleural effusion with right basilar atelectasis. The left lung appears clear. No pneumothorax is seen. The bony thorax is grossly intact. IMPRESSION: Right pleural effusion with associated right basilar atelectasis. ACT 112: Negative or not required by law. Electronically signed by: Juanito Austin M.D. 07/15/2023 1:41 PM Abdomen/Pelvis CT 07/15/23 16:12 CT OF THE ABDOMEN AND PELVIS WITH CONTRAST CLINICAL HISTORY: Abdominal pain status post hernia repair. COMPARISON STUDY: CT of the abdomen and pelvis December 18, 2022. TECHNIQUE: Following IV administration of 115 mL of Optiray, axial images of the abdomen and pelvis were obtained from the lung bases to the proximal femurs. Images were reviewed in the axial, sagittal, and coronal planes. IV contrast was administered without complication. Automated exposure control was utilized for the study. A dose lowering technique was utilized adhering to the principles of ALARA. FINDINGS: Please note that the chest CT will be reported separately. A large right pleural effusion has developed since abdominal CT of June 17, 2023. Right middle lobe and right lower lobe airspace opacity favors atelectasis. No pneumatosis, free air or portal venous gas is present. Interval umbilical hernia repair is noted. Moderate loculated abdominal and pelvic ascites is present. There is diffuse peritoneal thickening and enhancement. Loculated perihepatic component is noted. Suspected septations are noted within portions of the ascites. Small amount of layering hyperdense material within the pelvis is present. The liver is cirrhotic. No hepatic lesions are identified. Splenomegaly and varices formation are unchanged. Rectal wall thickening as well as wall thickening of portions of the colon and multiple small bowel loops is again noted. This was shown on prior exams and is likely related to cirrhosis. The main, left and right portal veins are patent. The splenic vein as well as the superior mesenteric vein are patent. There is no hydronephrosis. Adrenal glands, kidneys and pancreas are unremarkable. Bladder wall thickening is noted. IMPRESSION: 1. Moderate complex loculated abdominal and pelvic ascites with diffuse peritoneal thickening and enhancement and a small amount of layering hyperdense material within the pelvis. Sterility cannot be assessed by CT however the findings raise the possibility of an infectious process such as peritonitis and could be correlated with paracentesis results. 2. Cirrhosis with manifestations of portal hypertension including splenomegaly and varices formation. Wall thickening of the rectum, portions of the colon and multiple small bowel loops is likely related to cirrhosis. 3. Interval development of a large right pleural effusion. This may reflect a hepatic hydrothorax. 4. Status post interval umbilical hernia repair. ACT 112: Negative or not required by law. Electronically signed by: Kiet Pena M.D. 07/15/2023 5:13 PM Chest CTA 07/15/23 16:12 CT angio chest PE protocol CLINICAL HISTORY: cp sob s/p hernia repair TECHNIQUE: Multidetector row helical CT of the chest was performed with angiographic protocol. Coronal and sagittal reformations were obtained. Coronal and sagittal MIPS were obtained from the axial data set and were submitted for review. Automated dose lowering techniques and/or adjustment according to patient size were utilized for this exam. CT DOSE: 2311.50 mGy.cm Comparison: None available at the time of this dictation. FINDINGS: Lungs and pleura: Large right pleural effusion is seen. Heart and pericardium: Heart size is normal. No pericardial effusion. Vessels: No evidence of pulmonary embolism. Mediastinum and jean carlos: Unremarkable. Chest wall and lower neck: Unremarkable. Abdomen: For findings below the diaphragm, please refer to CT of the abdomen dated the same. Bones: Degenerative changes in the thoracic spine. IMPRESSION: 1. No evidence of pulmonary embolus. 2. Large right pleural effusion with midline shift and right atelectasis. ACT 112: Negative or not required by law. Electronically signed by: Jose Guadalupe Peguero M.D. 07/15/2023 5:08 PM PG Care Time/CCT Total # of Minutes Spent Total Time Spent with Patient: Total time spent is greater than 50% in coordination of care (as documented) at patient's floor/unit and/or counseling patient: Coding Level of Care Code 63839 IN/OBS CONSULT LVL 4,60M Diagnoses Abdominal ascites R18.8 Alcoholic cirrhosis K70.30 SBP (spontaneous bacterial peritonitis) K65.2 Alcohol abuse F10.10
[2023-07-16] MEDS: ALBUMIN 25% 100 ML IV SCH ×4 (15:29→23:21)
[2023-07-16] MEDS ORDERED: Nursing to Pharmacy Communication SCH (17:45)
[2023-07-16] MEDS ORDERED: cefTRIAXone SODIUM 2,000 MG in DEXTROSE 5% 50 ML IV SCH (18:00)
--- NOTE | 2023-07-16 20:47 | Billing Data ---
Date of Service July 16, 2023 Coding Level of Care Code 14073 INT INP/OBS CARE
[2023-07-17] MEDS ORDERED: ALBUMIN 25% 12.5 GM/50 ML VIAL IV SCH (00:30)
[2023-07-17] MEDS: MELATONIN 3 MG TAB PO PRN ×2 (01:27→22:02)
[2023-07-17] MEDS: ALBUMIN 25% 100 ML IV SCH (01:28)
--- NOTE | 2023-07-17 06:06 | Electrocardiogram Report ---
Test Reason : Blood Pressure : / mmHG Vent. Rate : 110 BPM Atrial Rate : 110 BPM P-R Int : 200 ms QRS Dur : 076 ms QT Int : 344 ms P-R-T Axes : 013 -31 002 degrees QTc Int : 465 ms Sinus tachycardia Left axis deviation Anteroseptal infarct (cited on or before 14-JUN-2023) Abnormal ECG When compared with ECG of 14-JUN-2023 19:50, QRS axis Shifted left Questionable change in initial forces of Anterior leads T wave inversion now evident in Inferior leads Confirmed by Jean Puga ([id number]) on 07/17/2023 6:06:28 AM Referred By: Confirmed By:Jean Puga
[2023-07-17] MEDS: metroNIDAZOLE 500 MG/100 ML BAG IV SCH ×3 (06:26→20:49)
[2023-07-17 08:08] LABS: Basophils # (auto) 0.06 K/uL (0.00-0.20); Basophils % (auto) 0.5 %; Eosinophils # (auto) 0.14 K/uL (0.00-0.50); Eosinophils % (auto) 1.2 %; Hematocrit (blood only) 23.9 % (42.0-52.0); Hemoglobin 8.5 g/dl (14.0-18.0); Immature Granulocytes # (auto) 0.11 K/uL (0.01-0.20); Lymphocytes # (auto) 0.87 K/uL (1.20-3.40); Lymphocytes % (auto) 7.7 %; Mean Corpuscular Hgb Conc 35.6 g/dL (32.0-36.0); Mean Corpuscular Volume 98.4 fL (80.0-100.0); Monocytes # (auto) 1.53 K/uL (0.11-0.59); Monocytes % (auto) 13.6 %; Neutrophils # (auto) 8.56 K/uL (1.40-6.50); Platelet Count 207 K/uL (130-400); RDW Coefficient of Variation 15.3 % (11.5-14.5); RDW Standard Deviation 54.6 fL (36.4-46.3); Red Blood Count 2.43 M/uL (4.70-6.10); White Blood Count 11.27 K/ul (4.8-10.8)
[2023-07-17 08:16] LABS: INR 1.4 (0.9-1.1); Prothrombin Time 15.2 Seconds (9.0-12.0)
[2023-07-17 08:31] LABS: Albumin Globulin Ratio 1.1 (0.9-2); Albumin Level 3.3 gm/dl (3.4-5.0); Bilirubin,Total 2.3 mg/dl (0.2-1.0); Calcium 8.3 mg/dl (8.6-10.3); Creatinine Clr Calc Pharmacy 212.2 ml/min; Est GFR (African American) 148.5 ml/min; Est GFR (Non-African American) 128.1 ml/min; Globulin 2.9 gm/dl (2.5-4.0); Potassium 3.6 mmol/L (3.5-5.1); Total Protein 6.2 gm/dl (6.0-8.3)
--- NOTE | 2023-07-17 08:45 | Hospitalist Progress Note ---
Date of Service July 17, 2023 Assessment & Plan (1) Sepsis: Plan: -WBC 15, lactate 2.4, pt meeting SIRS criteria on admission w/ suspected abdominal source of infection -Possible spontaneous bacterial peritonitis, peritoneal culture growing Enterobacter cloacae -Ceftriaxone initiated in ER, transition to cefepime given new culture results, await sensitivities -BCx NGTD -Trend CBC, WBC improving on Abx (2) SBP (spontaneous bacterial peritonitis): Plan: -Presented with abd pain, subjective fevers, evidence of sepsis on admission -CTAP demonstrated moderate ascites with peritoneal thickening and loculation concerning for SBP -Ascitic fluid with elevated WBCs, peritoneal culture with Enterobacter as above, BCx NGTD continue to monitor -Started cefepime 07/17 (was on ceftriaxone from admission) -GI consulted and appreciate recommendations, case discussed with Letty BIANCHI: albumin 137.5gm 07/16 and 87.5gm on 07/18, with repeat diagnostic/therapeutic paracentesis on 07/18 with cytology and cultures (3) Pleural effusion: Plan: -R pleural effusion with midline shift noted on CXR/chest CT -Stable respiratory status on RA -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, will defer pulmonology consult for now given pt's lack of respiratory symptoms and stable on RA -Continue diuresis with Bumex, spironolactone (4) Alcoholic cirrhosis: Plan: -MELD score 23 on admission -Follows with liver transplant team as outpatient but reportedly not candidate at present per last PCP note 07/11/23 -No encephalopathy at present -GI consulted given possible SBP + worsening liver disease, recommending follow cultures, diagnostic/therapeutic para tomorrow with repeat cultures and cytology, albumin dosing following this -Trend CMP, PT/INR (5) Hypomagnesemia: Plan: -Mg 1.4 on admission -Repleted (6) Anemia: Plan: -Normocytic anemia, Hgb 8.5, baseline appears 11-12 -Low clinical suspicion for acute bleeding at present, however will Hemoccult stool -Iron low, ferritin high, TIBC pending -Trend CBC (7) Hyponatremia: Plan: -Na 128, baseline appears low 130s -Suspect dilutional from hypervolemia in setting of advanced cirrhosis -Continue diuresis + fluid restriction -Previously seen by Nephrology last admission for symptomatic severe hyponatremia to 110s -Deferring Nephrology consult for now -Trend creatinine (8) Abdominal ascites: Plan: -Chronic, biweekly paracentesis at baseline -Paracentesis done in ER, repeat tomorrow 07/18 -Continue Bumex, spironolactone (9) Umbilical hernia: Plan: -Well-healing surgical site, lower likelihood for surgical site infection at present -CTAP with stable post-repair changes (10) Anxiety: Plan: -Chronic, stable -Continue buspirone PRN per home regimen Plan FENGI: low sodium diet Code status: Full DVT prophylaxis: SCDs, deferring chemoprophylaxis given anemia decreasing and below baseline, and given para tomorrow Isolation: None Disposition: PCU Admission and Anticipated Discharge Date Admission Date: July 15, 2023 Subjective Overnight had trouble sleeping. He denies abdominal pain but notes chronic tightness from ascites, denies fevers, chills, chest pain, SOB. Physical Exam Constitutional: WD/WN, vitals as above Eyes: + scleral abnormality (bilateral icterus) Respiratory: lungs CTA bilaterally, no wheezes or crackles Cardiovascular: RRR no murmurs Bilateral LE edema Gastrointestinal (Abdomen): Inspection/Auscultation: normal bowel sounds and + abdominal surgical scar Percussion/Palpation: + ascites and + abdomen firm; abdomen nontender, no guarding and abdomen not rigid Skin: + jaundice Psychiatric: A+Ox3, euthymic affect Results & Data Results & Data Vital Signs (Past 12 Hours) Vital Signs Temp Pulse Pulse Resp BP Pulse Ox O2 Del Method 07/17/23 07:55 96 H 07/17/23 07:53 36.8 C 96 H 20 119/70 97 Room Air 07/17/23 00:00 98 H 07/17/23 03:34 36.6 C 94 H 16 113/71 Room Air 07/16/23 23:32 37.5 C 93 H 16 98/57 L 93 Room Air PG Care Time/CCT Total # of Minutes Spent Total Time Spent with Patient: Total time spent is greater than 50% in coordination of care (as documented) at patient's floor/unit and/or counseling patient: Coding Level of Care Code 76210 SUB INP/OBS CARE 3/50MIN Diagnoses Sepsis A41.9 SBP (spontaneous bacterial peritonitis) K65.2 Pleural effusion J90 Alcoholic cirrhosis K70.30 Hypomagnesemia E83.42 Anemia D64.9 Hyponatremia E87.1 Abdominal ascites R18.8 Umbilical hernia K42.9 Anxiety F41.9
[2023-07-17] MEDS: SPIRONOLACTONE 25 MG TAB PO SCH (09:23)
[2023-07-17] MEDS: BUMETANIDE 1 MG TAB PO SCH (09:23)
[2023-07-17] MEDS: CEFEPIME 2,000 MG in SYRINGE 0 ML IV SCH ×2 (10:15→17:30)
--- NOTE | 2023-07-17 10:31 | Gastroenterology Progress Note ---
Date of Service July 17, 2023 Assessment & Plan (1) Abdominal ascites: (2) Alcoholic cirrhosis: (3) SBP (spontaneous bacterial peritonitis): (4) Alcohol abuse: Plan Patient is a 48 y.o. male with decompensated ETOH cirrhosis with associated portal HTN and refractory ascites admitted with sepsis, abnormal CT imaging, abdominal pain, fatigue, and peritoneal fluid with gram negative bacilli consistent with SBP. He did have a peritoneal WBC count of 247, but is unclear if this was done pre or post initiation of IV antibiotics. Peritoneal WBC on 07/05 was 356. MELD-Na 21. 1. Continue IV abx treatment with Cefepime x5 days. Will need SBP prophylactic abx upon discharge. 2. IV albumin 1g/kg on day 3. 3. Repeat diagnostic/therapeutic paracentesis in 48 hours. 4. Recommend 2g sodium restricted diet. Fluid restriction only if serum sodium <125. 5. Continue diuretics with Bumex and Aldactone as prescribed. 6. Continue supportive care. 7. Strict ETOH avoidance. Ongoing outpatient follow up with hepatology upon discharge. Admission and Anticipated Discharge Date Admission Date: July 15, 2023 Subjective Patient reports he is feeling better but did not sleep well last night. WBC count is improving and down to 11.27. Sodium is 128 today. Peritoneal culture with Enterobacter cloacae. IV abx has been changed to Cefepime. He denies any abdominal pain, fevers, or other complaints. Review of Systems Constitutional: as per Subjective / HPI Gastrointestinal: as per Subjective / HPI Physical Exam Constitutional: no acute distress Respiratory: normal respiratory effort, lungs clear to auscultation Cardiovascular: Rate/Rhythm: regular rhythm and + tachycardic Gastrointestinal (Abdomen): Inspection/Auscultation: normal bowel sounds Percussion/Palpation: + ascites and + abdomen firm; abdomen nontender, no guarding and abdomen not rigid Results & Data Results & Data Vital Signs (Past 12 Hours) Vital Signs Temp Pulse Pulse Resp BP Pulse Ox O2 Del Method 07/17/23 07:55 96 H 07/17/23 07:53 36.8 C 96 H 20 119/70 97 Room Air 07/17/23 00:00 98 H 07/17/23 03:34 36.6 C 94 H 16 113/71 Room Air 07/16/23 23:32 37.5 C 93 H 16 98/57 L 93 Room Air Diagnostic Findings Laboratory Results WBC 11.27 K/ul (4.8-10.8) H 07/17/23 07:40 RBC 2.43 M/uL (4.70-6.10) L 07/17/23 07:40 Hgb 8.5 g/dl (14.0-18.0) L 07/17/23 07:40 Hct 23.9 % (42.0-52.0) L 07/17/23 07:40 MCV 98.4 fL (80.0-100.0) 07/17/23 07:40 MCH 35.0 pg (25.0-34.0) H 07/17/23 07:40 MCHC 35.6 g/dL (32.0-36.0) 07/17/23 07:40 RDW Std Deviation 54.6 fL (36.4-46.3) H 07/17/23 07:40 RDW Coeff of Coby 15.3 % (11.5-14.5) H 07/17/23 07:40 Plt Count 207 K/uL (130-400) 07/17/23 07:40 MPV 8.0 fL (9.4-12.4) L 07/17/23 07:40 Immature Gran % (Auto) 1.0 % 07/17/23 07:40 Neut % (Auto) 76.0 % 07/17/23 07:40 Lymph % (Auto) 7.7 % 07/17/23 07:40 [place] % (Auto) 13.6 % 07/17/23 07:40 Eos % (Auto) 1.2 % 07/17/23 07:40 Baso % (Auto) 0.5 % 07/17/23 07:40 Neut # (Auto) 8.56 K/uL (1.40-6.50) H 07/17/23 07:40 Lymph # (Auto) 0.87 K/uL (1.20-3.40) L 07/17/23 07:40 [place] # (Auto) 1.53 K/uL (0.11-0.59) H 07/17/23 07:40 Eos # (Auto) 0.14 K/uL (0.00-0.50) 07/17/23 07:40 Baso # (Auto) 0.06 K/uL (0.00-0.20) 07/17/23 07:40 Immature Gran # (Auto) 0.11 K/uL (0.01-0.20) 07/17/23 07:40 PT 15.2 Seconds (9.0-12.0) H 07/17/23 07:40 INR 1.4 (0.9-1.1) H 07/17/23 07:40 APTT 30.2 Seconds (21.0-31.0) 07/15/23 13:38 PTT Ratio 1.1 07/15/23 13:38 Sodium 128 mmol/L (136-145) L 07/17/23 07:40 Potassium 3.6 mmol/L (3.5-5.1) 07/17/23 07:40 Chloride 96 mmol/L (98-107) L 07/17/23 07:40 Carbon Dioxide 26 mmol/L (21-32) 07/17/23 07:40 Anion Gap 6 (3-11) 07/17/23 07:40 BUN 10 mg/dl (6-23) 07/17/23 07:40 Creatinine 0.50 mg/dl (0.6-1.4) L 07/17/23 07:40 Est Cr Clr Drug Dosing 212.2 ml/min 07/17/23 07:40 Est GFR ( Amer) 148.5 ml/min 07/17/23 07:40 Est GFR (Non-Af Amer) 128.1 ml/min 07/17/23 07:40 BUN/Creatinine Ratio 20.0 (10-20) 07/17/23 07:40 Glucose 101 mg/dl (70-99(Fasting)) H 07/17/23 07:40 Lactate 2.0 mmol/L (0.4-2.0) 07/15/23 20:13 Calcium 8.3 mg/dl (8.6-10.3) L 07/17/23 07:40 Magnesium 2.4 mg/dl (1.7-2.4) 07/16/23 06:08 Iron 24 mcg/dl (35-175) L 07/16/23 06:08 Ferritin 911.7 ng/ml (8-388) H 07/16/23 06:08 Total Bilirubin 2.3 mg/dl (0.2-1.0) H 07/17/23 07:40 AST 20 U/L (13-39) 07/17/23 07:40 ALT 9 U/L (7-52) 07/17/23 07:40 Alkaline Phosphatase 131 U/L (34-104) H 07/17/23 07:40 Troponin I High Sens 10.5 pg/ml (0-20) 07/15/23 13:38 Total Protein 6.2 gm/dl (6.0-8.3) 07/17/23 07:40 Albumin 3.3 gm/dl (3.4-5.0) L 07/17/23 07:40 Globulin 2.9 gm/dl (2.5-4.0) 07/17/23 07:40 Albumin/Globulin Ratio 1.1 (0.9-2) 07/17/23 07:40 TSH 2.001 uIu/ml (0.300-4.500) 07/15/23 13:38 Urine Color Dark Yellow 07/15/23 19:53 Urine Appearance Clear (Clear) 07/15/23 19:53 Urine pH 6.5 (4.5-7.5) 07/15/23 19:53 Ur Specific [place] > 1.045 (1.000-1.030) H 07/15/23 19:53 Urine Protein Negative (Negative) 07/15/23 19:53 Urine Glucose (UA) Negative (Negative) 07/15/23 19:53 Urine Ketones Negative (Negative) 07/15/23 19:53 Urine Blood Negative (Negative) 07/15/23 19:53 Urine Nitrite Negative (Negative) 07/15/23 19:53 Urine Bilirubin Negative (Negative) 07/15/23 19:53 Urine Urobilinogen Negative (Negative) 07/15/23 19:53 Ur Leukocyte Esterase Negative (Negative) 07/15/23 19:53 Fluid Neutrophils % 29 % 07/15/23 18:40 Fluid Lymphocytes % 64 % 07/15/23 18:40 Fluid Eosinophils % 1 % 07/15/23 18:40 Fluid [place] % 6 % 07/15/23 18:40 Fluid Comment 07/15/23 18:40 Peritoneal Color [place] 07/15/23 18:40 Peritoneal Appearance Hazy 07/15/23 18:40 Peritoneal WBC (Auto) 247 /ul (0-300) 07/15/23 18:40 Peritoneal RBC (Auto) 40884 /uL 07/15/23 18:40 Peritoneal Tot Protein < 3.0 gm/dl 07/15/23 18:40 Peritoneal Albumin < 1.5 gm/dl 07/15/23 18:40 SARS-CoV-2, RNA, NAAT NEGATIVE (NEGATIVE) 07/15/23 19:32 Impressions Chest X-Ray 07/15/23 13:06 SINGLE VIEW CHEST CLINICAL HISTORY: Generalized weakness. FINDINGS: A PA chest radiograph is compared to study dated 11/22/2022. The cardiomediastinal silhouette is unremarkable. There is chronic elevation of the right hemidiaphragm. There is a small right pleural effusion with right basilar atelectasis. The left lung appears clear. No pneumothorax is seen. The bony thorax is grossly intact. IMPRESSION: Right pleural effusion with associated right basilar atelectasis. ACT 112: Negative or not required by law. Electronically signed by: Juanito Austin M.D. 07/15/2023 1:41 PM Abdomen/Pelvis CT 07/15/23 16:12 CT OF THE ABDOMEN AND PELVIS WITH CONTRAST CLINICAL HISTORY: Abdominal pain status post hernia repair. COMPARISON STUDY: CT of the abdomen and pelvis December 18, 2022. TECHNIQUE: Following IV administration of 115 mL of Optiray, axial images of the abdomen and pelvis were obtained from the lung bases to the proximal femurs. Images were reviewed in the axial, sagittal, and coronal planes. IV contrast was administered without complication. Automated exposure control was utilized for the study. A dose lowering technique was utilized adhering to the principles of ALARA. FINDINGS: Please note that the chest CT will be reported separately. A large right pleural effusion has developed since abdominal CT of June 17, 2023. Right middle lobe and right lower lobe airspace opacity favors atelectasis. No pneumatosis, free air or portal venous gas is present. Interval umbilical hernia repair is noted. Moderate loculated abdominal and pelvic ascites is present. There is diffuse peritoneal thickening and enhancement. Loculated perihepatic component is noted. Suspected septations are noted within portions of the ascites. Small amount of layering hyperdense material within the pelvis is present. The liver is cirrhotic. No hepatic lesions are identified. Splenomegaly and varices formation are unchanged. Rectal wall thickening as well as wall thickening of portions of the colon and multiple small bowel loops is again noted. This was shown on prior exams and is likely related to cirrhosis. The main, left and right portal veins are patent. The splenic vein as well as the superior mesenteric vein are patent. There is no hydronephrosis. Adrenal glands, kidneys and pancreas are unremarkable. Bladder wall thickening is noted. IMPRESSION: 1. Moderate complex loculated abdominal and pelvic ascites with diffuse peritoneal thickening and enhancement and a small amount of layering hyperdense material within the pelvis. Sterility cannot be assessed by CT however the findings raise the possibility of an infectious process such as peritonitis and could be correlated with paracentesis results. 2. Cirrhosis with manifestations of portal hypertension including splenomegaly and varices formation. Wall thickening of the rectum, portions of the colon and multiple small bowel loops is likely related to cirrhosis. 3. Interval development of a large right pleural effusion. This may reflect a hepatic hydrothorax. 4. Status post interval umbilical hernia repair. ACT 112: Negative or not required by law. Electronically signed by: Kiet Pena M.D. 07/15/2023 5:13 PM Chest CTA 07/15/23 16:12 CT angio chest PE protocol CLINICAL HISTORY: cp sob s/p hernia repair TECHNIQUE: Multidetector row helical CT of the chest was performed with angiographic protocol. Coronal and sagittal reformations were obtained. Coronal and sagittal MIPS were obtained from the axial data set and were submitted for review. Automated dose lowering techniques and/or adjustment according to patient size were utilized for this exam. CT DOSE: 2311.50 mGy.cm Comparison: None available at the time of this dictation. FINDINGS: Lungs and pleura: Large right pleural effusion is seen. Heart and pericardium: Heart size is normal. No pericardial effusion. Vessels: No evidence of pulmonary embolism. Mediastinum and jean carlos: Unremarkable. Chest wall and lower neck: Unremarkable. Abdomen: For findings below the diaphragm, please refer to CT of the abdomen dated the same. Bones: Degenerative changes in the thoracic spine. IMPRESSION: 1. No evidence of pulmonary embolus. 2. Large right pleural effusion with midline shift and right atelectasis. ACT 112: Negative or not required by law. Electronically signed by: Jose Guadalupe Peguero M.D. 07/15/2023 5:08 PM PG Care Time/CCT Total # of Minutes Spent Total Time Spent with Patient: Total time spent is greater than 50% in coordination of care (as documented) at patient's floor/unit and/or counseling patient: Coding Level of Care Code 22624 SUB INP/OBS CARE 350MIN Diagnoses Abdominal ascites R18.8 Alcoholic cirrhosis K70.30 SBP (spontaneous bacterial peritonitis) K65.2 Alcohol abuse F10.10
[2023-07-17] MEDS ORDERED: LORazepam 0.5 MG TAB PO PRN (14:02)
[2023-07-17] MEDS ORDERED: LIDOCAINE 5% 1 PATCH TD SCH (17:15)
[2023-07-18] MEDS: CEFEPIME 2,000 MG in SYRINGE 0 ML IV SCH ×2 (01:17→09:55)
[2023-07-18] MEDS ORDERED: Nursing to Pharmacy Communication SCH (02:30)
[2023-07-18] MEDS: metroNIDAZOLE 500 MG/100 ML BAG IV SCH (06:00)
[2023-07-18 06:36] LABS: Basophils # (auto) 0.05 K/uL (0.00-0.20); Basophils % (auto) 0.4 %; Hematocrit (blood only) 23.7 % (42.0-52.0); Hemoglobin 8.3 g/dl (14.0-18.0); Immature Granulocytes # (auto) 0.17 K/uL (0.01-0.20); Immature Granulocytes % (auto) 1.5 %; Lymphocytes # (auto) 0.87 K/uL (1.20-3.40); Lymphocytes % (auto) 7.6 %; Mean Platelet Volume 8.1 fL (9.4-12.4); Monocytes # (auto) 1.75 K/uL (0.11-0.59); Monocytes % (auto) 15.3 %; Neutrophils # (auto) 8.59 K/uL (1.40-6.50); Neutrophils % (auto) 75.2 %; Platelet Count 185 K/uL (130-400); RDW Coefficient of Variation 15.5 % (11.5-14.5); RDW Standard Deviation 55.8 fL (36.4-46.3); Red Blood Count 2.37 M/uL (4.70-6.10); White Blood Count 11.43 K/ul (4.8-10.8)
[2023-07-18 07:04] LABS: Albumin Level 2.8 gm/dl (3.4-5.0); BUN Creatinine Ratio 16.3 (10-20); Bilirubin,Total 2.2 mg/dl (0.2-1.0); Calcium 8.1 mg/dl (8.6-10.3); Creatinine Clr Calc Pharmacy 215.7 ml/min; Est GFR (African American) 149.8 ml/min; Est GFR (Non-African American) 129.2 ml/min; Globulin 2.9 gm/dl (2.5-4.0); Magnesium 1.9 mg/dl (1.7-2.4); Potassium 3.4 mmol/L (3.5-5.1); Total Protein 5.7 gm/dl (6.0-8.3)
[2023-07-18 07:29] LABS: INR 1.7 (0.9-1.1); Prothrombin Time 17.8 Seconds (9.0-12.0)
[2023-07-18] MEDS ORDERED: POTASSIUM CHLORIDE CRTAB 20 MEQ TABCR PO STA (08:29)
[2023-07-18] MEDS: BUMETANIDE 1 MG TAB PO SCH (09:54)
[2023-07-18] MEDS: SPIRONOLACTONE 25 MG TAB PO SCH (09:55)
--- NOTE | 2023-07-18 10:42 | Gastroenterology Progress Note ---
Date of Service July 18, 2023 Assessment & Plan (1) Abdominal ascites: (2) Alcoholic cirrhosis: (3) SBP (spontaneous bacterial peritonitis): (4) Alcohol abuse: Plan Patient is a 48 y.o. male with decompensated ETOH cirrhosis with associated portal HTN and refractory ascites admitted with sepsis, abnormal CT imaging, abdominal pain, fatigue, and peritoneal fluid with gram negative bacilli consistent with SBP. He did have a peritoneal WBC count of 247, but is unclear if this was done pre or post initiation of IV antibiotics. Peritoneal WBC on 07/05 was 356. MELD-Na 23 today. 1. Start Ciprofloxacin 500 mg daily upon discharge. 2. Recommend 2g sodium restricted diet. 3. Continue diuretics with Bumex and Aldactone as prescribed. 4. Strict ETOH avoidance. 5. Ongoing outpatient follow up with hepatology upon discharge. Admission and Anticipated Discharge Date Admission Date: July 15, 2023 Supervising Physician Co-Signing Physician Notes Patient was discharged and left before I could see him. Subjective Patient is status post paracentesis. Per radiology. Small amount of ascites. Not able to perform therapeutic paracentesis. Fluid studies are pending. Continues abx. Patient hopes for discharge today. Review of Systems Constitutional: no fever and no chills Gastrointestinal: as per Subjective / HPI Physical Exam Constitutional: no acute distress Eyes: EOM intact bilaterally Respiratory: normal respiratory effort, lungs clear to auscultation Cardiovascular: Rate/Rhythm: regular rhythm and + tachycardic Gastrointestinal (Abdomen): Inspection/Auscultation: normal bowel sounds Percussion/Palpation: + abdomen firm; abdomen nontender, no guarding and abdomen not rigid Psychiatric: A+Ox3, euthymic affect Results & Data Results & Data Vital Signs (Past 12 Hours) Vital Signs Temp Pulse Pulse Resp BP Pulse Ox O2 Del Method 07/18/23 08:09 92 H 07/18/23 07:51 36.9 C 101 H 18 117/73 95 Room Air 07/18/23 03:00 36.3 C L 88 18 105/63 97 Room Air Diagnostic Findings Laboratory Results WBC 11.43 K/ul (4.8-10.8) H 07/18/23 06:06 RBC 2.37 M/uL (4.70-6.10) L 07/18/23 06:06 Hgb 8.3 g/dl (14.0-18.0) L 07/18/23 06:06 Hct 23.7 % (42.0-52.0) L 07/18/23 06:06 MCV 100.0 fL (80.0-100.0) 07/18/23 06:06 MCH 35.0 pg (25.0-34.0) H 07/18/23 06:06 MCHC 35.0 g/dL (32.0-36.0) 07/18/23 06:06 RDW Std Deviation 55.8 fL (36.4-46.3) H 07/18/23 06:06 RDW Coeff of Coby 15.5 % (11.5-14.5) H 07/18/23 06:06 Plt Count 185 K/uL (130-400) 07/18/23 06:06 MPV 8.1 fL (9.4-12.4) L 07/18/23 06:06 Immature Gran % (Auto) 1.5 % 07/18/23 06:06 Neut % (Auto) 75.2 % 07/18/23 06:06 Lymph % (Auto) 7.6 % 07/18/23 06:06 Treg[place] % (Auto) 15.3 % 07/18/23 06:06 Eos % (Auto) 0.0 % 07/18/23 06:06 Baso % (Auto) 0.4 % 07/18/23 06:06 Neut # (Auto) 8.59 K/uL (1.40-6.50) H 07/18/23 06:06 Lymph # (Auto) 0.87 K/uL (1.20-3.40) L 07/18/23 06:06 [place] # (Auto) 1.75 K/uL (0.11-0.59) H 07/18/23 06:06 Eos # (Auto) 0.00 K/uL (0.00-0.50) 07/18/23 06:06 Baso # (Auto) 0.05 K/uL (0.00-0.20) 07/18/23 06:06 Immature Gran # (Auto) 0.17 K/uL (0.01-0.20) 07/18/23 06:06 PT 17.8 Seconds (9.0-12.0) H 07/18/23 06:06 INR 1.7 (0.9-1.1) H 07/18/23 06:06 APTT 30.2 Seconds (21.0-31.0) 07/15/23 13:38 PTT Ratio 1.1 07/15/23 13:38 Sodium 127 mmol/L (136-145) L 07/18/23 06:06 Potassium 3.4 mmol/L (3.5-5.1) L 07/18/23 06:06 Chloride 96 mmol/L (98-107) L 07/18/23 06:06 Carbon Dioxide 24 mmol/L (21-32) 07/18/23 06:06 Anion Gap 7 (3-11) 07/18/23 06:06 BUN 8 mg/dl (6-23) 07/18/23 06:06 Creatinine 0.49 mg/dl (0.6-1.4) L 07/18/23 06:06 Est Cr Clr Drug Dosing 215.7 ml/min 07/18/23 06:06 Est GFR ( Amer) 149.8 ml/min 07/18/23 06:06 Est GFR (Non-Af Amer) 129.2 ml/min 07/18/23 06:06 BUN/Creatinine Ratio 16.3 (10-20) 07/18/23 06:06 Glucose 100 mg/dl (70-99(Fasting)) H 07/18/23 06:06 Lactate 2.0 mmol/L (0.4-2.0) 07/15/23 20:13 Calcium 8.1 mg/dl (8.6-10.3) L 07/18/23 06:06 Magnesium 1.9 mg/dl (1.7-2.4) 07/18/23 06:06 Iron 24 mcg/dl (35-175) L 07/16/23 06:08 Unsaturated IBC 71 mcg/dl (155-355) L 07/17/23 07:40 Ferritin 911.7 ng/ml (8-388) H 07/16/23 06:08 Total Bilirubin 2.2 mg/dl (0.2-1.0) H 07/18/23 06:06 AST 21 U/L (13-39) 07/18/23 06:06 ALT 10 U/L (7-52) 07/18/23 06:06 Alkaline Phosphatase 116 U/L (34-104) H 07/18/23 06:06 Troponin I High Sens 10.5 pg/ml (0-20) 07/15/23 13:38 Total Protein 5.7 gm/dl (6.0-8.3) L 07/18/23 06:06 Albumin 2.8 gm/dl (3.4-5.0) L 07/18/23 06:06 Globulin 2.9 gm/dl (2.5-4.0) 07/18/23 06:06 Albumin/Globulin Ratio 1.0 (0.9-2) 07/18/23 06:06 TSH 2.001 uIu/ml (0.300-4.500) 07/15/23 13:38 Urine Color Dark Yellow 07/15/23 19:53 Urine Appearance Clear (Clear) 07/15/23 19:53 Urine pH 6.5 (4.5-7.5) 07/15/23 19:53 Ur Specific [place] > 1.045 (1.000-1.030) H 07/15/23 19:53 Urine Protein Negative (Negative) 07/15/23 19:53 Urine Glucose (UA) Negative (Negative) 07/15/23 19:53 Urine Ketones Negative (Negative) 07/15/23 19:53 Urine Blood Negative (Negative) 07/15/23 19:53 Urine Nitrite Negative (Negative) 07/15/23 19:53 Urine Bilirubin Negative (Negative) 07/15/23 19:53 Urine Urobilinogen Negative (Negative) 07/15/23 19:53 Ur Leukocyte Esterase Negative (Negative) 07/15/23 19:53 Fluid Neutrophils % 29 % 07/15/23 18:40 Fluid Lymphocytes % 64 % 07/15/23 18:40 Fluid Eosinophils % 1 % 07/15/23 18:40 Fluid Meso/Macro/Trego % 6 % 07/15/23 18:40 Fluid Comment 07/15/23 18:40 Peritoneal Color [place] 07/15/23 18:40 Peritoneal Appearance Hazy 07/15/23 18:40 Peritoneal WBC (Auto) 247 /ul (0-300) 07/15/23 18:40 Peritoneal RBC (Auto) 55495 /uL 07/15/23 18:40 Peritoneal Tot Protein < 3.0 gm/dl 07/15/23 18:40 Peritoneal Albumin < 1.5 gm/dl 07/15/23 18:40 SARS-CoV-2, RNA, NAAT NEGATIVE (NEGATIVE) 07/15/23 19:32 Impressions Chest X-Ray 07/15/23 13:06 SINGLE VIEW CHEST CLINICAL HISTORY: Generalized weakness. FINDINGS: A PA chest radiograph is compared to study dated 11/22/2022. The cardiomediastinal silhouette is unremarkable. There is chronic elevation of the right hemidiaphragm. There is a small right pleural effusion with right basilar atelectasis. The left lung appears clear. No pneumothorax is seen. The bony thorax is grossly intact. IMPRESSION: Right pleural effusion with associated right basilar atelectasis. ACT 112: Negative or not required by law. Electronically signed by: Juanito Austin M.D. 07/15/2023 1:41 PM Abdomen/Pelvis CT 07/15/23 16:12 CT OF THE ABDOMEN AND PELVIS WITH CONTRAST CLINICAL HISTORY: Abdominal pain status post hernia repair. COMPARISON STUDY: CT of the abdomen and pelvis December 18, 2022. TECHNIQUE: Following IV administration of 115 mL of Optiray, axial images of the abdomen and pelvis were obtained from the lung bases to the proximal femurs. Images were reviewed in the axial, sagittal, and coronal planes. IV contrast was administered without complication. Automated exposure control was utilized for the study. A dose lowering technique was utilized adhering to the principles of ALARA. FINDINGS: Please note that the chest CT will be reported separately. A large right pleural effusion has developed since abdominal CT of June 17, 2023. Right middle lobe and right lower lobe airspace opacity favors atelectasis. No pneumatosis, free air or portal venous gas is present. Interval umbilical hernia repair is noted. Moderate loculated abdominal and pelvic ascites is present. There is diffuse peritoneal thickening and enhancement. Loculated perihepatic component is noted. Suspected septations are noted within portions of the ascites. Small amount of layering hyperdense material within the pelvis is present. The liver is cirrhotic. No hepatic lesions are identified. Splenomegaly and varices formation are unchanged. Rectal wall thickening as well as wall thickening of portions of the colon and multiple small bowel loops is again noted. This was shown on prior exams and is likely related to cirrhosis. The main, left and right portal veins are patent. The splenic vein as well as the superior mesenteric vein are patent. There is no hydronephrosis. Adrenal glands, kidneys and pancreas are unremarkable. Bladder wall thickening is noted. IMPRESSION: 1. Moderate complex loculated abdominal and pelvic ascites with diffuse peritoneal thickening and enhancement and a small amount of layering hyperdense material within the pelvis. Sterility cannot be assessed by CT however the findings raise the possibility of an infectious process such as peritonitis and could be correlated with paracentesis results. 2. Cirrhosis with manifestations of portal hypertension including splenomegaly and varices formation. Wall thickening of the rectum, portions of the colon and multiple small bowel loops is likely related to cirrhosis. 3. Interval development of a large right pleural effusion. This may reflect a hepatic hydrothorax. 4. Status post interval umbilical hernia repair. ACT 112: Negative or not required by law. Electronically signed by: Kiet Pena M.D. 07/15/2023 5:13 PM Chest CTA 07/15/23 16:12 CT angio chest PE protocol CLINICAL HISTORY: cp sob s/p hernia repair TECHNIQUE: Multidetector row helical CT of the chest was performed with angiographic protocol. Coronal and sagittal reformations were obtained. Coronal and sagittal MIPS were obtained from the axial data set and were submitted for review. Automated dose lowering techniques and/or adjustment according to patient size were utilized for this exam. CT DOSE: 2311.50 mGy.cm Comparison: None available at the time of this dictation. FINDINGS: Lungs and pleura: Large right pleural effusion is seen. Heart and pericardium: Heart size is normal. No pericardial effusion. Vessels: No evidence of pulmonary embolism. Mediastinum and jean carlos: Unremarkable. Chest wall and lower neck: Unremarkable. Abdomen: For findings below the diaphragm, please refer to CT of the abdomen dated the same. Bones: Degenerative changes in the thoracic spine. IMPRESSION: 1. No evidence of pulmonary embolus. 2. Large right pleural effusion with midline shift and right atelectasis. ACT 112: Negative or not required by law. Electronically signed by: Jose Guadalupe Peguero M.D. 07/15/2023 5:08 PM PG Care Time/CCT Total # of Minutes Spent Total Time Spent with Patient: Total time spent is greater than 50% in coordination of care (as documented) at patient's floor/unit and/or counseling patient: Coding Level of Care Code 71393 SUB INP/OBS CARE 2/35MIN Diagnoses Abdominal ascites R18.8 Alcoholic cirrhosis K70.30 SBP (spontaneous bacterial peritonitis) K65.2 Alcohol abuse F10.10
--- NOTE | 2023-07-18 12:37 | Discharge Summary ---
Discharge Summary Date of Service July 18, 2023 Admission HPI Per Admitting Provider Pt is 48 yo M with PMH alcoholic cirrhosis, ascites requiring biweekly paracenteses, chronic hyponatremia, anxiety presenting with weakness. Pt admitted at [facility] 06/15-06/18 for ruptured umbilical hernia, transferred to [facility] given acute worsening and underwent emergency surgery, postoperative course complicated by hypotension requiring pressor support and treatment with IV antibiotics for concern of SBP. Pt also had ACOSTA and acute hyponatremia during stay. Discharged home from [facility] on 06/21 with reduced spironolactone + Bumex dosing, ciprofloxacin to complete abx therapy. Pt initially did well after discharge, received paracentesis on 06/26 (3.2L fluid removed) and 07/05 (1.2L fluid removed). Does follow with hepatology and liver transplant team- reportedly per past PCP note on 07/11, he is not a candidate for transplant at present. Pt began to experience worsening weakness, fatigue, malaise, nausea and mild abdominal pain starting on 07/11. Symptoms continued to worsen and pt reports to ER today accompanied by his sister. Pt arrived to ER with mild tachycardia to 100s. Initial evaluation significant for WBC 15, Hgb 9.5, INR 1.3, Na 126, lactate 2.4, Mg 1.4, TB 2.8, ALP 169. CXR with R pleural effusion + atelectasis, chest CT w/ R pleural effusion + midline shift + atelectasis, CTAP with complex loculated abd/pelvic ascites with diffuse peritoneal thickening and concern for possible infectious process, chronic cirrhotic changes of portal HTN with splenomegaly + variceal formation. ER interventions include 1L NSS, ceftriaxone 2g, paracentesis. At present, pt reports feeling similar to pre-paracentesis. Still weak and fatigued, though denies any overt abdominal pain, fever, chills. Admission Exam Per Admitting Provider General: well-appearing, no acute distress, laying in bed HEENT: PERRL, EOMI, conjunctivae clear without injection, anicteric sclerae, moist mucous membranes, clear oropharynx without exudate or erythema Neck: supple, trachea midline, no thyromegaly, no JVD, no cervical lymphadenopathy CV: RRR, normal S1 and S2, no murmurs Resp: CTAB, no increased work of breathing, no crackles or wheezes Abd: Slightly firm, distended w/o fluid wave, nontender, no guarding or rebound, +hepatosplenomegaly. Noted well-healing transverse surgical incision without drainage, erythema or tenderness. MSK: Normal bulk of all four extremities Neuro: AOx3, no focal motor or sensory deficits Skin: no rashes or lesions, warm and dry Ext: no LE peripheral edema or erythema, capillary refill <2s in all four extremities, 2+ LE peripheral pulses b/l Principal Dx & Hospital Course #1 = Principal Diagnosis (1) Sepsis: -WBC 15, lactate 2.4, pt meeting SIRS criteria on admission w/ suspected abdominal source of infection -Possible spontaneous bacterial peritonitis, peritoneal culture growing Ente robacter cloacae -Cefepime transitioned to Cipro 750mg BID x3 days to complete SBP tx, then to Cipro 500mg daily thereafter for SBP ppx -BCx NGTD (2) SBP (spontaneous bacterial peritonitis): -Presented with abd pain, subjective fevers, evidence of sepsis on admission -CTAP demonstrated moderate ascites with peritoneal thickening and loculation concerning for SBP -Ascitic fluid with elevated WBCs, peritoneal culture with Enterobacter as above, BCx NGTD continue to monitor -Started cefepime 07/17, transitioned to Cipro on discharge -GI consulted and appreciate recommendations, case discussed with Letty BIANCHI, for follow up with PCP/Hepatology (3) Pleural effusion: -R pleural effusion with midline shift noted on CXR/chest CT -Stable respiratory status on RA -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, deferred pulmonology consult this admission given pt's lack of respiratory symptoms and stable on RA -Continue diuresis with Bumex, spironolactone (4) Alcoholic cirrhosis: -MELD score 23 on admission -Follows with liver transplant team as outpatient but reportedly not candidate at present per last PCP note 07/11/23 -No encephalopathy at present -GI consulted given possible SBP + worsening liver disease, recommending follow cultures, treatment with Cipro on discharge (5) Hypomagnesemia: -Mg 1.4 on admission -Repleted (6) Anemia: -Normocytic anemia, Hgb 8.5, baseline appears 11-12 -Low clinical suspicion for acute bleeding at present, however will Hemoccult stool -Iron low, ferritin high, unsaturated IBC low (7) Hyponatremia: -Na 128, baseline appears low 130s -Suspect dilutional from hypervolemia in setting of advanced cirrhosis -Continue diuresis + fluid restriction -Previously seen by Nephrology last admission for symptomatic severe hyponatremia to 110s -Deferring Nephrology consult for now -BMP check Saturday (8) Abdominal ascites: -Chronic, biweekly paracentesis at baseline -Paracentesis done in ER, repeat 07/18 without significant fluid collection, unable to take repeat cultures -Continue Bumex, spironolactone (9) Umbilical hernia: -Well-healing surgical site, lower likelihood for surgical site infection at present -CTAP with stable post-repair changes (10) Anxiety: -Chronic, stable -Continue buspirone PRN per home regimen Plan Discharge home with follow up closely with PCP/Hepatology Discharge Exam Constitutional WD/WN, vitals as above Respiratory normal repsiratory effort, decreased breath sounds right lower lung field, otherwise CTA Cardiovascular RRR no murmurs Skin no rashes, warm and dry Psychiatric A+Ox3, euthymic affect Updated Medication List Medication Instructions Recorded Confirmed Type bumetanide 2 mg tablet 2 mg PO DAILY 06/24/23 07/15/23 History sennosides 8.6 mg capsule (senna) 8.6 mg PO DAILY #30 caps 06/24/23 07/15/23 Rx buspirone 7.5 mg tablet 7.5 mg PO BID 07/15/23 07/15/23 History spironolactone 50 mg tablet 50 mg PO QAM 07/15/23 07/15/23 History ciprofloxacin HCl 500 mg tablet 500 mg PO DAILY #30 tabs 07/18/23 Rx (Cipro) ciprofloxacin HCl 750 mg tablet 750 mg PO BID 3 days #6 tabs 07/18/23 Rx Hospital Stay Data Consultations 07/15/23 18:51 ED Decision to Admit Stat 07/15/23 20:58 Consult Gastroenterology Routine Diagnostic Imagining Performed 07/15/23 16:12 CT abd pelvis IV con only Stat CT angio chest PE protocol Stat 07/18/23 08:00 US abdomen ltd ascites Routine Pending Results Patient Have Any Pending Studies at Discharge: Yes (abdominal fluid cultures) Discharge Instructions Given to Patient (Per Discharging Provider) You were admitted to the hospital for fevers and abdominal pain, and found to have an infection in your belly that you are at increased risk for due to your history of cirrhosis and ascites. You were given IV antibiotics, which were able to be transitioned to pill antibiotics. We collected fluid on 07/18; if that fluid still has bacteria, we will call you to come back to the hospital for more IV antibiotics. You should call your C[employer] Dr. Munson right away so that she knows you had an abdominal infection and so she can give you next steps. Ciprofloxacin 750 milligrams every 12 hours starting with dinner this evening, until that bottle is empty. Then, one 500milligram tablet daily thereafter for infection prevention. Look at your follow up appointment list, if you need to reschedule, please call those offices. Total Time Total Time Spent Total Time Spent (In Minutes): 40 min Coding Level of Care Code 01453 INP/OBS DISCH >30 MIN Diagnoses Sepsis A41.9 SBP (spontaneous bacterial peritonitis) K65.2 Pleural effusion J90 Alcoholic cirrhosis K70.30 Hypomagnesemia E83.42 Anemia D64.9 Hyponatremia E87.1 Abdominal ascites R18.8 Umbilical hernia K42.9 Anxiety F41.9
--- NOTE | 2023-07-18 14:18 | Ultrasound Report ---
Limited abdominal ultrasound INDICATION: Ascites check FINDINGS: Real-time ultrasound scanning throughout all 4 abdominal quadrants demonstrates a small loc ulated pocket of ascites within the right paracolic gutter. This is similar in appearance to the prio r 2 paracenteses status post umbilical hernia repair. No other significant ascites noted. The referri physician was notified of the findings and no paracentesis was performed. IMPRESSION: Small loculated pocket of ascites within the right paracolic gutter. No paracentesis was performed. Performed, dictated, and signed by Mohsen Stock PA-C; to be co-signed by Dr. Kiet Pena. Electronically signed by: Kiet Pena M.D. 07/18/2023 5:06 PM
[2023-07-18] MEDS ORDERED: LIDOCAINE 5% 1 PATCH TD SCH (18:00)
== END 2023-07-18 14:46 | disposition home or self-care (01) | DRG 871 ==
LOC: ED 12:59 → 2S 19:36 → SUATTDRO 19:36 → 2S 20:32